=== PATIENT | female | born 1935 | race Hispanic/Latino ===

== ENCOUNTER 2017-06-17 14:16 | Emergency (ER) | payer MEDICARE ==
[2017-06-17 15:11] LABS: Basophils % (Auto) 0.2 % (0.0-1.8); Eosinophils % (Auto) 0.7 % (0.0-4.3); Hematocrit 32.1 % (30.3-42.9); Hemoglobin 10.8 gm/dl (10.1-14.3); Mean Corpuscular HGB Conc 34 % (30-34); Mean Corpuscular Hemoglobin 36 pg (28-32); Mean Corpuscular Volume 107 fl (79-97); Platelet Count 121 K/mm3 (140-440); Red Blood Count 3.01 M/mm3 (3.65-5.03); Red Cell Distribution Width 14.7 % (13.2-15.2)
[2017-06-17 15:34] LABS: BUN/Creatinine Ratio 17.64; Bilirubin,Direct 0.7 mg/dL (0-0.2); Bilirubin,Total 1.7 mg/dL (0.1-1.2); Calcium 8.5 mg/dL (8.4-10.2)
[2017-06-17 15:35] LABS: Albumin 3.4 g/dL (3.9-5); Albumin/Globulin Ratio 0.9 %; Chloride 95.7 mmol/L (98-107); Potassium 4.7 mmol/L (3.6-5.0); Total Protein 7.3 g/dL (6.3-8.2)
[2017-06-17 16:20] LABS: Bacteria,Urine 2+ /HPF (Negative); Bilirubin,Urine NEG (Negative); Blood,Urine SM (Negative); Ketones,Urine NEG (Negative); Leukocyte Esterase,Urine LG (Negative); Nitrite,Urine POS (Negative)
[2017-06-17] MEDS ORDERED: ROCEPHIN/NS 1 GM/50 ML 1 GM/50 ML BAG IV ONE (17:53)
[2017-06-17] MEDS ORDERED: NACL 0.9% 1000 ML 1,000 ML IV ONE (17:53)
[2017-06-17] MEDS ORDERED: TORADOL IV ONE (17:53)
--- NOTE | 2017-06-17 17:57 | Emergency Department Report ---
ED Female HPI - General Chief complaint: Urogenital-Female Stated complaint: POSS UTI/NECK CHECK /FEVER Time Seen by Provider: 06/17/17 17:36 Source: patient Mode of arrival: Wheelchair Limitations: Physical Limitation - History of Present Illness MD Complaint: dysuria -: Gradual Radiation: suprapubic Severity: mild Severity scale (0 -10): 3 Quality: cramping, sharp Consistency: constant Improves with: none Worsens with: urination Are you Now?: No Associated Symptoms: dysuria. denies: vaginal discharge, vaginal bleeding, nausea/vomiting, fever/chills, headaches, loss of appetite, seizure, shortness of breath, syncope, weakness - Related Data Home Medications Medication Instructions Recorded Confirmed Last Taken Aspirin EC [Aspirin Enteric Coated 81 mg PO QDAY 10/23/14 06/17/17 1 Day Ago TAB] 81 Famotidine [Pepcid] 20 mg PO DAILY 10/23/14 06/17/17 1 Day Ago 20mg Furosemide [Lasix TAB] 40 mg PO QDAY 10/23/14 05/24/15 1 Day Ago unknown Levothyroxine Sodium 112 mcg PO DAILY 05/24/15 06/17/17 1 Day Ago 112mcg [place] 10-325 mg TAB 1 tab PO BID 05/24/15 06/17/17 1 Day Ago Metoprolol [Lopressor TAB] 50 mg PO BID 06/17/17 06/17/17 1 Day Ago Warfarin [Coumadin] 2.5 mg PO QDAY 06/17/17 06/17/17 1 Day Ago 2.5mg Previous Rx's Medication Instructions Recorded Last Taken Type Cephalexin [Keflex] 500 mg PO Q12HR #14 cap 06/17/17 Unknown Rx Allergies Allergy/AdvReac Type Severity Reaction Status Date / Time No Known Allergies Allergy Unverified 06/17/17 14:54 ED Review of Systems ROS: Stated complaint: POSS UTI/NECK CHECK /FEVER Other details as noted in HPI Comment: All other systems reviewed and negative ED Past Medical Hx - Past Medical History Hx Hypertension: Yes Hx Heart Attack/AMI: Yes (5 stents) Hx Congestive Heart Failure: Yes Hx Arthritis: Yes Additional medical history: AFIB. CAD - Surgical History Hx Coronary Stent: Yes (Times 5) Hx Cholecystectomy: Yes Hx Breast Surgery: Yes Additional Surgical History: cataracts. tonsillectomy. knee surgeries. 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 "spinal stenosis surgery" - Social History Smoking Status: Never Smoker Substance Use Type: Prescribed - Medications Home Medications: Home Medications Medication Instructions Recorded Confirmed Last Taken Type Aspirin EC [Aspirin Enteric Coated 81 mg PO QDAY 10/23/14 06/17/17 1 Day Ago History TAB] 81 Famotidine [Pepcid] 20 mg PO DAILY 10/23/14 06/17/17 1 Day Ago History 20mg Furosemide [Lasix TAB] 40 mg PO QDAY 10/23/14 05/24/15 1 Day Ago History unknown Levothyroxine Sodium 112 mcg PO DAILY 05/24/15 06/17/17 1 Day Ago History 112mcg [place] 10-325 mg TAB 1 tab PO BID 05/24/15 06/17/17 1 Day Ago History Cephalexin [Keflex] 500 mg PO Q12HR #14 cap 06/17/17 Unknown Rx Metoprolol [Lopressor TAB] 50 mg PO BID 06/17/17 06/17/17 1 Day Ago History Warfarin [Coumadin] 2.5 mg PO QDAY 06/17/17 06/17/17 1 Day Ago History 2.5mg ED Physical Exam - General Limitations: Physical Limitation General appearance: alert, in no apparent distress - Head Head exam: Present: atraumatic, normocephalic - Eye Eye exam: Present: normal appearance - ENT ENT exam: Present: normal exam, normal orophraynx, mucous membranes moist - Neck Neck exam: Present: normal inspection - Respiratory Respiratory exam: Present: normal lung sounds bilaterally. Absent: respiratory distress - Cardiovascular Cardiovascular Exam: Present: regular rate, normal rhythm. Absent: systolic murmur, diastolic murmur, rubs, gallop - GI/Abdominal GI/Abdominal exam: Present: soft, normal bowel sounds - Extremities Exam Extremities exam: Present: normal inspection - Back Exam Back exam: Present: normal inspection - Neurological Exam Neurological exam: Present: alert, oriented X3 - Psychiatric Psychiatric exam: Present: normal affect, normal mood - Skin Skin exam: Present: warm, dry, intact, normal color. Absent: rash ED Course Vital Signs 06/17/17 06/17/17 14:45 17:03 Temperature 100.1 F H 98.9 F Pulse Rate 63 85 Respiratory 19 16 Rate Blood Pressure 126/65 Blood Pressure 130/64 [Right] O2 Sat by Pulse 95 96 Oximetry ED Medical Decision Making - Lab Data Result diagrams: 06/17/17 14:58 06/17/17 14:58 Critical care attestation.: If time is entered above; I have spent that time in minutes in the direct care of this critically ill patient, excluding procedure time. ED Disposition Clinical Impression: UTI (urinary tract infection) Disposition: DC-01 TO HOME OR SELFCARE Is pt being admited?: No Does the pt Need Aspirin: No Condition: Good Prescriptions: Cephalexin [Keflex] 500 mg PO Q12HR #14 cap Referrals: PRIMARY CARE, [Primary Care Provider] - 3-5 Days Time of Disposition: 19:15
[2017-06-17 19:40] VITALS: BP 141/61
== END 2017-06-17 20:13 | disposition home or self-care (01) ==
LOC: ED 14:16
DX: N39.0 Urinary tract infection, site not specified (principal); I11.0 Hypertensive heart disease with heart failure; I50.9 Heart failure, unspecified; I25.2 Old myocardial infarction; M19.90 Unspecified osteoarthritis, unspecified site; Z95.1 Presence of aortocoronary bypass graft; Z79.01 Long term (current) use of anticoagulants; Z79.82 Long term (current) use of aspirin
CPT/HCPCS: 36415; 80048; 80074; 81001; 82962; 85025; 96365; 96375; 99283; J0696; J1885; J7030

== ENCOUNTER 2019-05-16 13:47 | Inpatient (IN) | payer MEDICARE ==
[2019-05-16 15:26] LABS: Basophils % (Auto) 0.5 % (0.0-1.8); Eosinophils # (Auto) 0.2 K/mm3 (0.0-0.4); Eosinophils % (Auto) 4.3 % (0.0-4.3); Hemoglobin 10.5 gm/dl (10.1-14.3); Lymphocytes # (Auto) 1.4 K/mm3 (1.2-5.4); Mean Corpuscular HGB Conc 34 % (30-34); Mean Corpuscular Volume 112 fl (79-97); Monocytes # (Auto) 0.5 K/mm3 (0.0-0.8); Monocytes % (Auto) 10.9 % (0.0-7.3); Platelet Count 129 K/mm3 (140-440); Red Blood Count 2.78 M/mm3 (3.65-5.03); Red Cell Distribution Width 17.2 % (13.2-15.2)
[2019-05-16 15:41] LABS: Albumin 3.5 g/dL (3.9-5); Calcium 8.6 mg/dL (8.4-10.2)
[2019-05-16] MEDS ORDERED: LOVENOX SUB-Q SCH (18:00)
[2019-05-16] MEDS: LOVENOX SUB-Q SCH (19:50)
--- NOTE | 2019-05-17 01:32 | History and Physical Report ---
History of Present Illness Date of examination: 05/16/19 Date of admission: 05/16/19 14:15 Chief complaint: Increasing shortness of breath and swelling of both the legs for 3-4 days History of present illness: 83-year-old female with history of hypertension, hypothyroidism, CHF, atrial fibrillation on Coumadin and sent from [facility] for increasing shortness of breath and increased bilateral leg swelling. Is been going on for the last 1 week. Patient has orthopnea. No increased swelling of both the legs. No chest pain. Patient is class IV NYHA symptoms. Past History Past Medical History: CAD, diabetes, hypertension, hyperlipidemia, hypothyroidism Past Surgical History: PTCA (stent placement in the past) Social history: no significant social history, lives with family, full code Family history: hypertension Medications and Allergies Allergies Allergy/AdvReac Type Severity Reaction Status Date / Time No Known Allergies Allergy Unverified 06/17/17 14:54 Home Medications Medication Instructions Recorded Confirmed Last Taken Type Cyanocobalamin [Vitamin B-12] 1,000 mcg PO DAILY 04/19/18 04/19/18 Unknown History Aspirin EC 81 mg PO QDAY #30 tablet 04/22/18 Unknown Rx Cholecalciferol (Vitamin D3) 2,000 unit PO DAILY #60 capsule 04/22/18 Unknown Rx [Vitamin D3] Furosemide [Lasix TAB] 40 mg PO QDAY #30 tablet 04/22/18 Unknown Rx Levothyroxine Sodium [Synthroid] 112 mcg PO QDAY #30 tablet 04/22/18 Unknown Rx [place]-3 Fatty Acids/Fish Oil [Fish 1,000 mg PO QDAY capsule 04/22/18 Unknown Rx Oil] [place]-3/Dha/Epa/Fish Oil [Fish Oil 1 each PO DAILY #30 capsule 04/22/18 Unknown Rx 1,000 mg Softgel] Potassium Chloride [K-Dur] 20 meq PO Q12H #60 tablet 04/22/18 Unknown Rx Warfarin [Coumadin] 2.5 mg PO QPM #30 tablet 04/22/18 Unknown Rx metOLazone [Zaroxolyn] 2.5 mg PO BID #60 tablet 04/22/18 Unknown Rx Cholecalciferol Vit D3 [Vitamin D3 2,000 unit PO DAILY #30 tablet 08/26/18 Unknown Rx 1,000 UNIT TAB] Ciprofloxacin HCl [Ciprofloxacin 500 mg PO Q12H #14 tab 08/26/18 Unknown Rx TAB] HYDROcodone/APAP 10-325 [[place] 1 - 2 each PO TID PRN #14 tablet 08/26/18 Unknown Rx 10-325 mg TAB] Metoprolol [Lopressor TAB] 50 mg PO BID #60 tablet 08/26/18 Unknown Rx Saccharomyces Boulardii [Florastor] 250 mg PO DAILY #30 capsule 08/26/18 Unknown Rx Active Meds: Active Medications Enoxaparin Sodium (Lovenox) 40 mg SUB-Q QDAY [facility] Last Admin: 05/16/19 19:50 Dose: 40 mg Documented by: Review of Systems All systems: negative Constitutional: weight gain Ears, nose, mouth and throat: deferred Breasts: deferred Cardiovascular: orthopnea, shortness of breath, dyspnea on exertion, leg edema Respiratory: cough Gastrointestinal: no abdominal pain, no nausea Musculoskeletal: no neck stiffness, no neck pain, no shooting arm pain Integumentary: deferred Neurological: no head injury, no seizures, no syncope Psychiatric: no anxiety, no memory loss, no change in sleep habits Endocrine: no polydipsia, no polyuria, no nocturia Hematologic/Lymphatic: no easy bruising, no easy bleeding Allergic/Immunologic: no urticaria, no allergic rhinitis, no wheezing Exam - Constitutional Vitals: Temp Pulse Resp BP Pulse Ox 97.4 F L 80 14 123/68 98 05/16/19 01:45 05/16/19 01:45 05/16/19 01:45 05/16/19 01:45 05/16/19 01:45 General appearance: Present: mild distress, well-nourished - EENT Eyes: Present: PERRL ENT: hearing intact, clear oral mucosa - Neck Neck: Present: supple, normal ROM - Respiratory Respiratory effort: normal Respiratory: bilateral: rales - Cardiovascular Heart rate: 70 Rhythm: regular Heart Sounds: Present: S1 & S2. Absent: rub, click - Extremities Extremities: no ischemia, pulses symmetrical, No edema Extremity abnormal: edema (3+ pedal edema) Peripheral Pulses: within normal limits - Abdominal General gastrointestinal: Present: soft, non-tender, non-distended, normal bowel sounds Female genitourinary: Present: normal - Integumentary Integumentary: Present: clear, warm, dry - Musculoskeletal Musculoskeletal: gait normal, strength equal bilaterally - Psychiatric Psychiatric: appropriate mood/affect, intact judgment & insight - Neurologic Neurologic: CNII-XII intact, moves all extremities - Allied Health Allied health notes reviewed: nursing, case management Results - Labs CBC & Chem 7: 05/16/19 14:47 05/16/19 14:47 Labs: Laboratory Last Values WBC 4.9 K/mm3 (4.5-11.0) 05/16/19 14:47 RBC 2.78 M/mm3 (3.65-5.03) L 05/16/19 14:47 Hgb 10.5 gm/dl (10.1-14.3) 05/16/19 14:47 Hct 31.0 % (30.3-42.9) 05/16/19 14:47 MCV 112 fl (79-97) H 05/16/19 14:47 MCH 38 pg (28-32) H 05/16/19 14:47 MCHC 34 % (30-34) 05/16/19 14:47 RDW 17.2 % (13.2-15.2) H 05/16/19 14:47 Plt Count 129 K/mm3 (140-440) L 05/16/19 14:47 Lymph % (Auto) 28.0 % (13.4-35.0) 05/16/19 14:47 [place] % (Auto) 10.9 % (0.0-7.3) H 05/16/19 14:47 Eos % (Auto) 4.3 % (0.0-4.3) 05/16/19 14:47 Baso % (Auto) 0.5 % (0.0-1.8) 05/16/19 14:47 Lymph # 1.4 K/mm3 (1.2-5.4) 05/16/19 14:47 [place] # 0.5 K/mm3 (0.0-0.8) 05/16/19 14:47 Eos # 0.2 K/mm3 (0.0-0.4) 05/16/19 14:47 Baso # 0.0 K/mm3 (0.0-0.1) 05/16/19 14:47 Seg Neutrophils % 56.3 % (40.0-70.0) 05/16/19 14:47 Seg Neutrophils # 2.8 K/mm3 (1.8-7.7) 05/16/19 14:47 Sodium 139 mmol/L (137-145) 05/16/19 14:47 Potassium 3.7 mmol/L (3.6-5.0) 05/16/19 14:47 Chloride 100.8 mmol/L (98-107) 05/16/19 14:47 Carbon Dioxide 25 mmol/L (22-30) 05/16/19 14:47 17 mmol/L 05/16/19 14:47 BUN 24 mg/dL (7-17) H 05/16/19 14:47 1.5 mg/dL (0.7-1.2) H 05/16/19 14:47 Estimated GFR 33 ml/min 05/16/19 14:47 16 % 05/16/19 14:47 Glucose 90 mg/dL (65-100) 05/16/19 14:47 Calcium 8.6 mg/dL (8.4-10.2) 05/16/19 14:47 1.00 mg/dL (0.1-1.2) 05/16/19 14:47 AST 26 units/L (5-40) 05/16/19 14:47 ALT 12 units/L (7-56) 05/16/19 14:47 77 units/L (35-129) 05/16/19 14:47 NT-Pro-B Natriuret Pep 2752 pg/mL (0-900) H 05/16/19 14:47 7.9 g/dL (6.3-8.2) 05/16/19 14:47 3.5 g/dL (3.9-5) L 05/16/19 14:47 0.8 % 05/16/19 14:47 - Imaging and Cardiology EKG: report reviewed Chest x-ray: report reviewed Assessment and Plan Advance Directives: Yes (full code) VTE prophylaxis?: Chemical Plan of care discussed with patient/family: Yes - Patient Problems (1) Acute exacerbation of CHF (congestive heart failure) Current Visit: Yes Status: Acute Qualifiers: Heart failure type: combined systolic and diastolic Qualified Code(s): I50.43 - Acute on chronic combined systolic (congestive) and diastolic (congestive) heart failure Plan to address problem: IV Lasix 40 mg every 12 Echocardiogram for ejection fraction and valve function Cardiology consult Daily weights Daily intake output (2) Hypertension Current Visit: Yes Status: Chronic Qualifiers: Hypertension type: essential hypertension Qualified Code(s): I10 - [place] l (primary) hypertension Plan to address problem: Continue antihypertensives (3) Hypothyroidism Current Visit: Yes Status: Chronic Qualifiers: Hypothyroidism type: acquired Qualified Code(s): E03.9 - Hypothyroidism, unspecified Plan to address problem: Continue Synthroid Check TSH (4) Pedal edema Current Visit: Yes Status: Chronic Plan to address problem: Rule out DVT (5) DVT prophylaxis Current Visit: Yes Status: Acute Plan to address problem: Continue Lovenox and GI prophylaxis
[2019-05-17] MEDS ORDERED: SODIUM CHLORIDE FLUSH SYRINGE 10 ML IV PRN (01:38)
[2019-05-17] MEDS ORDERED: TYLENOL PO PRN (01:38)
[2019-05-17] MEDS ORDERED: ZOFRAN IV PRN (01:38)
[2019-05-17] MEDS ORDERED: REGLAN IV PRN ×2 (01:38→01:49)
[2019-05-17] MEDS: LOPRESSOR PO SCH ×3 (02:11→22:12)
[2019-05-17] MEDS: DILAUDID IV PRN ×2 (02:12→22:14)
[2019-05-17] MEDS: LASIX IV SCH ×2 (05:58→17:16)
[2019-05-17] MEDS: SYNTHROID PO SCH (05:59)
[2019-05-17 06:28] LABS: Basophils % (Auto) 0.5 % (0.0-1.8); Eosinophils # (Auto) 0.1 K/mm3 (0.0-0.4); Eosinophils % (Auto) 2.8 % (0.0-4.3); Hemoglobin 9.4 gm/dl (10.1-14.3); Lymphocytes # (Auto) 1.3 K/mm3 (1.2-5.4); Lymphocytes % (Auto) 36.7 % (13.4-35.0); Mean Corpuscular HGB Conc 34 % (30-34); Mean Corpuscular Volume 111 fl (79-97); Monocytes # (Auto) 0.4 K/mm3 (0.0-0.8); Monocytes % (Auto) 10.7 % (0.0-7.3); Platelet Count 117 K/mm3 (140-440); Red Blood Count 2.53 M/mm3 (3.65-5.03); Red Cell Distribution Width 16.9 % (13.2-15.2)
[2019-05-17 06:56] LABS: Albumin 3.1 g/dL (3.9-5); Calcium 8.5 mg/dL (8.4-10.2)
[2019-05-17 09:38] LABS: INR 1.81 (0.87-1.13)
[2019-05-17] MEDS ORDERED: ZAROXOLYN PO SCH (10:00)
[2019-05-17] MEDS ORDERED: NON-FORMULARY (Cholecalciferol (Vitamin D3) [Vitamin D3] 2,000 UNIT) PO SCH (10:00)
[2019-05-17] MEDS ORDERED: PEPCID PO SCH (10:00)
--- NOTE | 2019-05-17 10:51 | XRay Report ---
CHEST 2 VIEWS INDICATION: chf. COMPARISON: None. FINDINGS: Support devices: None. Heart: Moderate cardiomegaly. Lungs/Pleura: No acute air space or interstitial disease. No significant pleural effusion. Moderate underlying COPD. IMPRESSION: No acute findings. Signer Name: Ethan Goodson MD Signed: 05/17/2019 10:46 AM Workstation Name: [id number]
[2019-05-17] MEDS: VITAMIN D3 PO SCH (11:00)
[2019-05-17] MEDS: LOVENOX SUB-Q SCH (11:42)
[2019-05-17] MEDS: HALFPRIN EC PO SCH (11:42)
[2019-05-17] MEDS: K-DUR PO SCH ×2 (11:43→22:45)
[2019-05-17] MEDS: FISH OIL PO SCH (11:43)
[2019-05-17] MEDS: SODIUM CHLORIDE FLUSH SYRINGE 10 ML IV SCH ×2 (11:44→22:14)
[2019-05-17] MEDS: PEPCID PO SCH ×2 (11:44→22:12)
--- NOTE | 2019-05-17 12:00 | Consultation ---
History of Present Illness Consult date: 05/17/19 Requesting physician: MARLON MYERS Consult reason: congestive heart failure History of present illness: The patient is an 84 year old female who is followed by Dr. Puri in the office with a history of chronic HFrEF, ischemic cardiomyopathy, apical thrombus, CAD s/p VT and PCI, chronic atrial fibrillation, anticoagulated with coumadin, chronic kidney disease, hypertension, hyperlipidemia, hypothyroidism. She presented to our office yesterday with c/o progressively worsening SOB, GREY, PND, orthopnea and BLE swelling for the past 2 weeks and was directly admitted to [facility] for acute on chronic HFrEF. Echo done 07/2018 showed EF 40-45%, LA and RA severely dilated, mod MR, mod to severe TR, RVSP 37mmHg, no intracardiac mass or thrombus. PET MPI done 12/2016 was negative for ischemia. Past History Past Medical History: CAD, diabetes, hypertension, hyperlipidemia, hypothy roidism Past Surgical History: PTCA (stent placement in the past) Social history: no significant social history, lives with family, full code Family history: hypertension Medications and Allergies Allergies Allergy/AdvReac Type Severity Reaction Status Date / Time No Known Allergies Allergy Unverified 06/17/17 14:54 Home Medications Medication Instructions Recorded Confirmed Last Taken Type Cyanocobalamin [Vitamin B-12] 1,000 mcg PO DAILY 04/19/18 04/19/18 Unknown History Aspirin EC 81 mg PO QDAY #30 tablet 04/22/18 Unknown Rx Cholecalciferol (Vitamin D3) 2,000 unit PO DAILY #60 capsule 04/22/18 Unknown Rx [Vitamin D3] Furosemide [Lasix TAB] 40 mg PO QDAY #30 tablet 04/22/18 Unknown Rx Levothyroxine Sodium [Synthroid] 112 mcg PO QDAY #30 tablet 04/22/18 Unknown Rx [place]-3 Fatty Acids/Fish Oil [Fish 1,000 mg PO QDAY capsule 04/22/18 Unknown Rx Oil] [place]-3/Dha/Epa/Fish Oil [Fish Oil 1 each PO DAILY #30 capsule 04/22/18 Unknown Rx 1,000 mg Softgel] Potassium Chloride [K-Dur] 20 meq PO Q12H #60 tablet 04/22/18 Unknown Rx Warfarin [Coumadin] 2.5 mg PO QPM #30 tablet 04/22/18 Unknown Rx metOLazone [Zaroxolyn] 2.5 mg PO BID #60 tablet 04/22/18 Unknown Rx Cholecalciferol Vit D3 [Vitamin D3 2,000 unit PO DAILY #30 tablet 08/26/18 Unknown Rx 1,000 UNIT TAB] Ciprofloxacin HCl [Ciprofloxacin 500 mg PO Q12H #14 tab 08/26/18 Unknown Rx TAB] HYDROcodone/APAP 10-325 [[place] 1 - 2 each PO TID PRN #14 tablet 08/26/18 Unknown Rx 10-325 mg TAB] Metoprolol [Lopressor TAB] 50 mg PO BID #60 tablet 08/26/18 Unknown Rx Saccharomyces Boulardii [Florastor] 250 mg PO DAILY #30 capsule 08/26/18 Unknown Rx Active Meds: Active Medications Acetaminophen (Tylenol) 650 mg PO Q4H PRN PRN Reason: Pain MILD(1-3)/Fever >100.5/MILLER Aspirin (Halfprin Ec) 81 mg PO QDAY [facility] Last Admin: 05/17/19 11:42 Dose: 81 mg Documented by: Cholecalciferol (Vitamin D3) 2,000 unit PO DAILY [facility] Last Admin: 05/17/19 11:00 Dose: 2,000 unit Documented by: Enoxaparin Sodium (Lovenox) 40 mg SUB-Q QDAY [facility] Last Admin: 05/17/19 11:42 Dose: 40 mg Documented by: Famotidine (Pepcid) 10 mg PO BID [facility] Last Admin: 05/17/19 11:44 Dose: 10 mg Documented by: Fish Oil (Fish Oil) 1,000 mg PO QDAY [facility] Last Admin: 05/17/19 11:43 Dose: 1,000 mg Documented by: Furosemide (Lasix) 40 mg IV 0600,1800 [facility] Last Admin: 05/17/19 05:58 Dose: 40 mg Documented by: Hydromorphone HCl (Dilaudid) 0.5 mg IV Q3H PRN PRN Reason: Pain , Severe (7-10) Last Admin: 05/17/19 02:12 Dose: 0.5 mg Documented by: Levothyroxine Sodium (Synthroid) 112 mcg PO QDAY@0600 [facility] Last Admin: 05/17/19 05:59 Dose: 112 mcg Documented by: Metoclopramide HCl (Reglan) 5 mg IV Q6H PRN PRN Reason: Nausea And Vomiting Metolazone (Zaroxolyn) 2.5 mg PO BID [facility] Last Admin: 05/17/19 11:42 Dose: 2.5 mg Documented by: Metoprolol Tartrate (Lopressor) 50 mg PO BID [facility] Last Admin: 05/17/19 02:11 Dose: 50 mg Documented by: Ondansetron HCl (Zofran) 4 mg IV Q8H PRN PRN Reason: Nausea And Vomiting Oxycodone/Acetaminophen (Percocet 5/325) 1 tab PO Q6H PRN PRN Reason: Pain, Moderate (4-6) Potassium Chloride (K-Dur) 20 meq PO Q12HR [facility] Last Admin: 05/17/19 11:43 Dose: 20 meq Documented by: Sodium Chloride (Sodium Chloride Flush Syringe 10 Ml) 10 ml IV BID [facility] Last Admin: 05/17/19 11:44 Dose: 10 ml Documented by: Sodium Chloride (Sodium Chloride Flush Syringe 10 Ml) 10 ml IV PRN PRN PRN Reason: LINE FLUSH Warfarin Sodium (Coumadin) 2.5 mg PO QPM@1700 [facility]; Protocol Review of Systems Constitutional: no fever, no chills, no sweats Ears, nose, mouth and throat: no ear pain, no nose pain, no sinus pressure, no sinus pain Cardiovascular: orthopnea, edema, shortness of breath, dyspnea on exertion, paroxysmal nocturnal dyspnea, leg edema, no chest pain, no palpitations, no rapid/irregular heart beat, no syncope, no lightheadedness Respiratory: cough, shortness of breath, dyspnea on exertion, no cough with sputum, no congestion, no wheezing, no pain on inspiration Gastrointestinal: no abdominal pain, no nausea, no vomiting, no diarrhea, no constipation, no change in bowel habits Genitourinary Female: no pelvic pain, no flank pain, no menorrhagia, no dysuria, no urinary frequency, no urgency Musculoskeletal: no neck stiffness, no neck pain, no shooting arm pain, no arm numbness/tingling, no low back pain, no shooting leg pain Integumentary: no rash, no pruritis, no redness, no sores, no wounds Neurological: no head injury, no paralysis, no weakness, no parathesias, no numbness, no tingling, no seizures, no syncope Psychiatric: no anxiety Endocrine: no cold intolerance, no heat intolerance Hematologic/Lymphatic: no easy bruising, no easy bleeding Allergic/Immunologic: no urticaria, no wheezing Physical Examination Vital Signs Temp Pulse Resp BP Pulse Ox 97.4 F L 80 14 123/68 98 05/16/19 01:45 05/16/19 01:45 05/16/19 01:45 05/16/19 01:45 05/16/19 01:45 General appearance: no acute distress HEENT: Positive: PERRL, Normocephaly, Mucus Membranes Moist Neck: Positive: neck supple, trachea midline Cardiac: Positive: irregularly irregular, S1/S2, Systolic Murmur Lungs: Positive: Decreased Breath Sounds Neuro: Positive: Grossly Intact Abdomen: Negative: Tender Skin: Positive: Bruising (BLE) Extremities: Present: +2 Edema (BLE) Results 05/17/19 05:51 05/17/19 05:51 Cardiac Enzymes 05/16/19 05/17/19 Range/Units 14:47 05:51 AST 26 22 (5-40) units/L Coagulation 05/17/19 Range/Units 08:17 PT 20.6 H (12.2-14.9) Sec. INR 1.81 H (0.87-1.13) CBC 05/16/19 05/17/19 Range/Units 14:47 05:51 WBC 4.9 3.4 L (4.5-11.0) K/mm3 RBC 2.78 L 2.53 L (3.65-5.03) M/mm3 Hgb 10.5 9.4 L (10.1-14.3) gm/dl Hct 31.0 28.0 L (30.3-42.9) % Plt Count 129 L 117 L (140-440) K/mm3 Lymph # 1.4 1.3 (1.2-5.4) K/mm3 [place] # 0.5 0.4 (0.0-0.8) K/mm3 Eos # 0.2 0.1 (0.0-0.4) K/mm3 Baso # 0.0 0.0 (0.0-0.1) K/mm3 Comprehensive Metabolic Panel 05/16/19 05/17/19 Range/Units 14:47 05:51 Sodium 139 140 (137-145) mmol/L Potassium 3.7 3.7 (3.6-5.0) mmol/L Chloride 100.8 103.8 (98-107) mmol/L Carbon Dioxide 25 24 (22-30) mmol/L BUN 24 H 19 H (7-17) mg/dL Creatinine 1.5 H 1.3 H (0.7-1.2) mg/dL Glucose 90 83 (65-100) mg/dL Calcium 8.6 8.5 (8.4-10.2) mg/dL AST 26 22 (5-40) units/L ALT 12 11 (7-56) units/L Alkaline Phosphatase 77 66 (35-129) units/L Total Protein 7.9 6.8 (6.3-8.2) g/dL Albumin 3.5 L 3.1 L (3.9-5) g/dL - Imaging and Cardiology Echo: report reviewed (07/2018 showed EF 40-45%, LA and RA severely dilated, mod MR, mod to severe TR, RVSP 37mmHg, no intracardiac mass or thrombus. ) EKG: report reviewed, image reviewed EKG interpretations - Telemetry EKG Rhythm: Atrial Fibrillation - EKG Supraventricular dysrhythmia: atrial fibrillation Assessment and Plan Agree with present cardiac management. Monitor renal indices. The patient has been seen in conjunction with Dr. Acosta who agrees with the assessment and plan of care. - Patient Problems (1) Acute on chronic systolic heart failure Current Visit: No Status: Acute (2) Ischemic cardiomyopathy Current Visit: Yes Status: Chronic (3) CAD (coronary artery disease) Current Visit: Yes Status: Chronic Qualifiers: Coronary Disease-Associated Artery/Lesion type: [place] coronary artery [place] vs. transplanted heart: [place] heart Associated angina: with unstable angina pectoris (4) Stented coronary artery Current Visit: Yes Status: Chronic (5) Permanent atrial fibrillation Current Visit: Yes Status: Chronic (6) CKD (chronic kidney disease) Current Visit: Yes Status: Chronic (7) Hypertension Current Visit: Yes Status: Chronic Qualifiers: Hypertension type: essential hypertension Qualified Code(s): I10 - Essential (primary) hypertension (8) Hypothyroidism Current Visit: Yes Status: Chronic Qualifiers: Hypothyroidism type: acquired Qualified Code(s): E03.9 - Hypothyroidism, unspecified
[2019-05-17] MEDS: COUMADIN PO SCH (17:15)
[2019-05-17] MEDS: PERCOCET 5/325 PO PRN (18:33)
--- NOTE | 2019-05-17 19:14 | Progress Note ---
Assessment and Plan - Patient Problems (1) Acute exacerbation of CHF (congestive heart failure) Current Visit: Yes Status: Acute Qualifiers: Heart failure type: combined systolic and diastolic Qualified Code(s): I50.43 - Acute on chronic combined systolic (congestive) and diastolic (congestive) heart failure Plan to address problem: Patient with acute on chronic systolic heart failure. Ejection fraction 45%. Seen we don't fairly well. We'll place patient on diuretics and beta nayeli. We'll hold TANJA inhibitor secondary to chronic kidney disease. Avoid nephrotoxic agents low-salt diet. Diuresis accordingly. Patient has improved after 1 day of diuresis. (2) CAD (coronary artery disease) Current Visit: Yes Status: Chronic Qualifiers: Coronary Disease-Associated Artery/Lesion type: [place] coronary artery [place] vs. transplanted heart: [place] heart Associated angina: with unstable angina pectoris Plan to address problem: At present patient remains chest pain-free. Has had PCI continue aspirin and beta nayeli metoprolol. We'll discuss with cardiology is Plavix still indicated. (3) Hypertension Current Visit: Yes Status: Chronic Qualifiers: Hypertension type: essential hypertension Qualified Code(s): I10 - Essential (primary) hypertension Plan to address problem: Patient fairly well controlled with metoprolol (4) Hypothyroidism Current Visit: Yes Status: Chronic Qualifiers: Hypothyroidism type: acquired Qualified Code(s): E03.9 - Hypothyroidism, unspecified Plan to address problem: Currently asymptomatic we'll obtain TSH continue levothyroxine. (5) Chronic kidney disease, stage III (moderate) Current Visit: No Status: Acute Plan to address problem: Present back to approximate baseline creatinine 1.3. A short chronic kidney disease. (6) Hypothyroidism (acquired) Current Visit: No Status: Chronic History Interval history: Patient 84-year-old female with a history of chronic congestive heart failure, coronary artery disease status post PCI, chronic kidney disease, hypertension. Presents with acute episode of shortness of breath dyspnea on exertion PND or lo wer extremity edema. Clinical course appeared to be CHF exacerbation. Patient admitted for CHF exacerbation and hypoxemia. At present patient states she feels much better. Still has a nonproductive cough at times. Hospitalist Physical - Constitutional Vitals: Temp Pulse Resp BP Pulse Ox 97.6 F 46 L 19 118/54 96 05/17/19 12:21 05/17/19 12:44 05/17/19 14:00 05/17/19 12:44 05/17/19 12:21 General appearance: Present: no acute distress - EENT Eyes: Present: PERRL, EOM intact ENT: hearing intact, clear oral mucosa, dentition normal - Neck Neck: Present: supple, normal ROM - Respiratory Respiratory: bilateral: diminished, rhonchi - Cardiovascular Rhythm: regular Heart Sounds: Present: S1 & S2. Absent: systolic murmur - Extremities Extremities: no ischemia, pulses intact, pulses symmetrical, No edema, normal temperature, normal color, Full ROM Peripheral Pulses: within normal limits - Abdominal General gastrointestinal: soft, non-tender, non-distended, normal bowel sounds, hypoactive bowel sounds, no hepatomegaly, no splenomegaly, no mass, no hernia - Integumentary Integumentary: Present: clear, warm, dry. Absent: jaundice, rash, clammy - Psychiatric Psychiatric: no appropriate mood/affect, intact judgment & insight, memory intact - Neurologic Neurologic: CNII-XII intact, no focal deficits, moves all extremities Results - Labs CBC & Chem 7: 05/17/19 05:51 05/17/19 05:51 Labs: Laboratory Last Values WBC 3.4 K/mm3 (4.5-11.0) L 05/17/19 05:51 RBC 2.53 M/mm3 (3.65-5.03) L 05/17/19 05:51 Hgb 9.4 gm/dl (10.1-14.3) L 05/17/19 05:51 Hct 28.0 % (30.3-42.9) L 05/17/19 05:51 MCV 111 fl (79-97) H 05/17/19 05:51 MCH 37 pg (28-32) H 05/17/19 05:51 MCHC 34 % (30-34) 05/17/19 05:51 RDW 16.9 % (13.2-15.2) H 05/17/19 05:51 Plt Count 117 K/mm3 (140-440) L 05/17/19 05:51 Lymph % (Auto) 36.7 % (13.4-35.0) H 05/17/19 05:51 [place] % (Auto) 10.7 % (0.0-7.3) H 05/17/19 05:51 Eos % (Auto) 2.8 % (0.0-4.3) 05/17/19 05:51 Baso % (Auto) 0.5 % (0.0-1.8) 05/17/19 05:51 Lymph # 1.3 K/mm3 (1.2-5.4) 05/17/19 05:51 [place] # 0.4 K/mm3 (0.0-0.8) 05/17/19 05:51 Eos # 0.1 K/mm3 (0.0-0.4) 05/17/19 05:51 Baso # 0.0 K/mm3 (0.0-0.1) 05/17/19 05:51 Seg Neutrophils % 49.3 % (40.0-70.0) 05/17/19 05:51 Seg Neutrophils # 1.7 K/mm3 (1.8-7.7) L 05/17/19 05:51 PT 20.6 Sec. (12.2-14.9) H 05/17/19 08:17 INR 1.81 (0.87-1.13) H 05/17/19 08:17 Sodium 140 mmol/L (137-145) 05/17/19 05:51 Potassium 3.7 mmol/L (3.6-5.0) 05/17/19 05:51 Chloride 103.8 mmol/L (98-107) 05/17/19 05:51 Carbon Dioxide 24 mmol/L (22-30) 05/17/19 05:51 16 mmol/L 05/17/19 05:51 BUN 19 mg/dL (7-17) H 05/17/19 05:51 1.3 mg/dL (0.7-1.2) H 05/17/19 05:51 Estimated GFR 39 ml/min 05/17/19 05:51 15 % 05/17/19 05:51 Glucose 83 mg/dL (65-100) 05/17/19 05:51 5.6 % (4-6) 05/17/19 05:51 Calcium 8.5 mg/dL (8.4-10.2) 05/17/19 05:51 1.40 mg/dL (0.1-1.2) H 05/17/19 05:51 AST 22 units/L (5-40) 05/17/19 05:51 ALT 11 units/L (7-56) 05/17/19 05:51 66 units/L (35-129) 05/17/19 05:51 NT-Pro-B Natriuret Pep 2752 pg/mL (0-900) H 05/16/19 14:47 6.8 g/dL (6.3-8.2) 05/17/19 05:51 3.1 g/dL (3.9-5) L 05/17/19 05:51 0.8 % 05/17/19 05:51 Active Medications - Current Medications Current Medications: Generic Name Dose Route Start Last Admin Trade Name Freq PRN Reason Stop Dose Admin Acetaminophen 650 mg 05/17/19 01:38 Tylenol PO Q4H PRN Pain MILD(1-3)/Fever >100.5/MILLER Aspirin 81 mg 05/17/19 10:00 05/17/19 11:42 Halfprin Ec PO 81 mg QDAY ALEKS Administration Cholecalciferol 2,000 unit 05/17/19 10:00 05/17/19 11:00 Vitamin D3 PO 2,000 unit DAILY ALEKS Administration Enoxaparin Sodium 40 mg 05/16/19 19:00 05/17/19 11:42 Lovenox SUB-Q 40 mg QDAY ALEKS Administration Famotidine 10 mg 05/17/19 10:00 05/17/19 11:44 Pepcid PO 10 mg BID ALEKS Administration Fish Oil 1,000 mg 05/17/19 10:00 05/17/19 11:43 Fish Oil PO 1,000 mg QDAY ALEKS Administration Furosemide 40 mg 05/17/19 06:00 05/17/19 17:16 Lasix IV 40 mg 0600,1800 ALEKS Administration Hydromorphone HCl 0.5 mg 05/17/19 01:38 05/17/19 02:12 Dilaudid IV 0.5 mg Q3H PRN Administration Pain , Severe (7-10) Levothyroxine Sodium 112 mcg 05/17/19 06:00 05/17/19 05:59 Synthroid PO 112 mcg QDAY@0600 ALEKS Administration Metoclopramide HCl 5 mg 05/17/19 01:49 Reglan IV Q6H PRN Nausea And Vomiting Metolazone 2.5 mg 05/18/19 06:00 Zaroxolyn PO DAILY [facility] Metoprolol Tartrate 50 mg 05/17/19 02:00 05/17/19 12:44 Lopressor PO Not Given BID [facility] Ondansetron HCl 4 mg 05/17/19 01:38 Zofran IV Q8H PRN Nausea And Vomiting Oxycodone/Acetaminophen 1 tab 05/17/19 01:38 05/17/19 18:33 Percocet 5/325 PO 1 tab Q6H PRN Administration Pain, Moderate (4-6) Potassium Chloride 20 meq 05/17/19 10:00 05/17/19 11:43 K-Dur PO 20 meq Q12HR ALEKS Administration Sodium Chloride 10 ml 05/17/19 10:00 05/17/19 11:44 Sodium Chloride Flush Syringe 10 Ml IV 10 ml BID ALEKS Administration Sodium Chloride 10 ml 05/17/19 01:38 Sodium Chloride Flush Syringe 10 Ml IV PRN PRN LINE FLUSH Warfarin Sodium 2.5 mg 05/17/19 17:00 05/17/19 17:15 Coumadin PO 2.5 mg QPM@1700 [facility] Administration Protocol Nutrition/Malnutrition Assess - Dietary Evaluation Nutrition/Malnutrition Findings: Nutrition Notes Start: 05/17/19 14:54 Freq: Status: Active Protocol: Document 05/17/19 14:54 RM (Rec: 05/17/19 15:02 RM [id number]) Nutrition Notes Need for Assessment generated from: Education Initial or Follow up Assessment Current Diagnosis Hypertension,Heart Failure, Hyperlipidemia Other Pertinent Diagnosis RI Current Diet Cardiac Labs/Tests Reviewed Pertinent Medications Lasix Height 5 ft 5 in Weight 87.2 kg [place] Body Weight (kg) 56.81 BMI 32.0 Subjective/Other Information Screened for Coumadin/Vit K diet education. Pt stated that she is already familiar w/the diet. Stated that her appetite is poor. Noted lunch at bedside w/25% eaten. Percent of energy/protein needs met: 38%/29% Burn Absent Trauma Absent #1 Nutrition Diagnosis Inadequate oral intake Etiology decreased appetite As Evidenced by Signs and Symptoms lunch at bedside w/25% eaten Is patient on ventilator? No Is Patient Ambulatory and/or Out of Bed Yes REE-([place]-St. Jeor-ambulatory/OOB) [ 1713.244 NUTR.MSJOOB] Kcal/Kg value to use for calculation 16 Approximate Energy Requirements Using 1395 kcal/Kg Calculation Used for Recommendations Kcal/kg Additional Notes Protein Needs: 72-86g (1-1.2g/ kg 72kg adjBW) Fluid Needs: 1 ml/kcal Nutrition Intervention Change Diet Order: Continue current Add Supplement/Snack (indicate name/kcal Ensure Enlive Chocolate 1 /protein ) daily Provides kCal: 350 Provides Protein (gm) 20 Goal #1 Meet at least 75% of calorie and protein needs via PO and ONS intakes Anticipated Discharge Needs: Cardiac diet Follow-Up By: 05/19/19 Additional Comments Follow for PO and ONS intakes
[2019-05-18] MEDS: ZAROXOLYN PO SCH ×2 (05:22→10:03)
[2019-05-18] MEDS: SYNTHROID PO SCH (05:23)
[2019-05-18] MEDS: LASIX IV SCH (06:09)
[2019-05-18 06:10] LABS: INR 1.9 (0.87-1.13)
[2019-05-18 06:22] LABS: Calcium 8.8 mg/dL (8.4-10.2)
[2019-05-18] MEDS: FISH OIL PO SCH (10:03)
[2019-05-18] MEDS: K-DUR PO SCH ×2 (10:03→21:28)
[2019-05-18] MEDS: VITAMIN D3 PO SCH (10:03)
[2019-05-18] MEDS: HALFPRIN EC PO SCH (10:03)
[2019-05-18] MEDS: LOVENOX SUB-Q SCH (10:03)
[2019-05-18] MEDS: PEPCID PO SCH ×2 (10:03→21:28)
[2019-05-18] MEDS: SODIUM CHLORIDE FLUSH SYRINGE 10 ML IV SCH ×2 (10:04→21:28)
[2019-05-18] MEDS: LOPRESSOR PO SCH ×2 (10:09→21:28)
--- NOTE | 2019-05-18 11:34 | Progress Note ---
Assessment and Plan Pt clinically improving. Hold zaroxolyn in setting of slight increase in serum Cr overnight, cont IV lasix and other present management. F/u BMP in AM. The patient has been seen in conjunction with Dr. Acosta who agrees with the assessment and plan of care. - Patient Problems (1) Acute on chronic systolic heart failure Current Visit: No Status: Acute (2) Ischemic cardiomyopathy Current Visit: Yes Status: Chronic (3) CAD (coronary artery disease) Current Visit: Yes Status: Chronic Qualifiers: Coronary Disease-Associated Artery/Lesion type: [place] coronary artery [place] vs. transplanted heart: [place] heart Associated angina: with unstable angina pectoris (4) Stented coronary artery Current Visit: Yes Status: Chronic (5) Permanent atrial fibrillation Current Visit: Yes Status: Chronic (6) CKD (chronic kidney disease) Current Visit: Yes Status: Chronic (7) Hypertension Current Visit: Yes Status: Chronic Qualifiers: Hypertension type: essential hypertension Qualified Code(s): I10 - Essential (primary) hypertension (8) Hypothyroidism Current Visit: Yes Status: Chronic Qualifiers: Hypothyroidism type: acquired Qualified Code(s): E03.9 - Hypothyroidism, unspecified (9) Anemia Current Visit: Yes Status: Acute (10) Thrombocytopenia Current Visit: Yes Status: Acute Subjective Date of service: 05/18/19 Principal diagnosis: HF Interval history: pt laying flat comfortably, states she is feeling better today, BLE swelling improving. in AFib with CVR on tele. Objective Last Vital Signs Temp 98.1 F 05/18/19 08:54 Pulse 77 05/18/19 10:09 Resp 16 05/18/19 10:22 BP 107/77 05/18/19 10:09 Pulse Ox 95 05/18/19 08:54 - Physical Examination General: No Apparent Distress HEENT: Positive: PERRL, Normocephaly, Mucus Membranes Moist Neck: Positive: neck supple, trachea midline Cardiac: Positive: irregularly irregular, S1/S2 Lungs: Positive: Decreased Breath Sounds Neuro: Positive: Grossly Intact Abdomen: Negative: Tender Skin: Positive: Bruising (BLE) Extremities: Present: +2 Edema (BLE) - Labs and Meds Coagulation 05/18/19 Range/Units 05:36 PT 21.4 H (12.2-14.9) Sec. INR 1.90 H (0.87-1.13) Comprehensive Metabolic Panel 05/18/19 Range/Units 05:36 Sodium 140 (137-145) mmol/L Potassium 3.7 (3.6-5.0) mmol/L Chloride 98.1 (98-107) mmol/L Carbon Dioxide 30 (22-30) mmol/L BUN 21 H (7-17) mg/dL Creatinine 1.6 H (0.7-1.2) mg/dL Glucose 91 (65-100) mg/dL Calcium 8.8 (8.4-10.2) mg/dL - Imaging and Cardiology EKG: report reviewed, image reviewed Echo: report reviewed (07/2018 showed EF 40-45%, LA and RA severely dilated, mod MR, mod to severe TR, RVSP 37mmHg, no intracardiac mass or thrombus. ) - Telemetry EKG Rhythm: Atrial Fibrillation
[2019-05-18] MEDS: PERCOCET 5/325 PO PRN (13:30)
[2019-05-18] MEDS: BUMEX IV SCH (17:45)
[2019-05-18] MEDS: COUMADIN PO SCH (17:46)
--- NOTE | 2019-05-18 18:42 | Progress Note ---
Assessment and Plan - Patient Problems (1) Acute exacerbation of CHF (congestive heart failure) Current Visit: Yes Status: Acute Qualifiers: Heart failure type: combined systolic and diastolic Qualified Code(s): I50.43 - Acute on chronic combined systolic (congestive) and diastolic (congestive) heart failure Plan to address problem: Patient with acute on chronic systolic heart failure. Ejection fraction 45%. Patient has been slow to respond again with Lasix. Agree change to Bumex.. We 'll hold TANJA inhibitor secondary to chronic kidney disease. Avoid nephrotoxic agents low-salt diet. Diuresis accordingly. Patient has improved after 1 day of diuresis. (2) CAD (coronary artery disease) Current Visit: Yes Status: Chronic Qualifiers: Coronary Disease-Associated Artery/Lesion type: [place] coronary artery [place] vs. transplanted heart: [place] heart Associated angina: with unstable angina pectoris Plan to address problem: At present patient remains chest pain-free. Has had PCI continue aspirin and b eta nayeli metoprolol. We'll discuss with cardiology is Plavix still indicated. (3) Hypertension Current Visit: Yes Status: Chronic Qualifiers: Hypertension type: essential hypertension Qualified Code(s): I10 - Essential (primary) hypertension Plan to address problem: Continues to have optimal control of blood pressure. Continue current ant ihypertensives. (4) Hypothyroidism Current Visit: Yes Status: Chronic Qualifiers: Hypothyroidism type: acquired Qualified Code(s): E03.9 - Hypothyroidism, unspecified Plan to address problem: Currently asymptomatic we'll obtain TSH continue levothyroxine. (5) Chronic kidney disease, stage III (moderate) Current Visit: No Status: Acute Plan to address problem: Present back to approximate baseline creatinine 1.3. A short chronic kidney disease.. Patient has had an increase in creatinine to 1.6. Was likely secondary to volume shifts. (6) Hypothyroidism (acquired) Current Visit: No Status: Chronic History Interval history: Patient laying in bed. Comfortable. Patient more comfortably yesterday. Still has upper and lower extremity edema. And significant rhonchi or exam. Slow to respond. May be secondary to age. Hospitalist Physical - Constitutional Vitals: Temp Pulse Resp BP Pulse Ox 98.6 F 82 18 102/50 95 05/18/19 13:12 05/18/19 17:43 05/18/19 17:43 05/18/19 17:43 05/18/19 17:43 General appearance: Present: no acute distress - EENT Eyes: Present: PERRL, EOM intact ENT: hearing intact, clear oral mucosa, dentition normal - Respiratory Respiratory: bilateral: diminished, rhonchi - Cardiovascular Rhythm: regular - Extremities Extremities: no ischemia, pulses intact, pulses symmetrical, normal temperature, normal color Extremity abnormal: edema Peripheral Pulses: within normal limits - Abdominal General gastrointestinal: soft, non-tender, non-distended, normal bowel sounds (obese), other - Psychiatric Psychiatric: intact judgment & insight, memory intact - Neurologic Neurologic: CNII-XII intact, no focal deficits, moves all extremities Results - Labs CBC & Chem 7: 05/17/19 05:51 05/18/19 05:36 Labs: Laboratory Last Values WBC 3.4 K/mm3 (4.5-11.0) L 05/17/19 05:51 RBC 2.53 M/mm3 (3.65-5.03) L 05/17/19 05:51 Hgb 9.4 gm/dl (10.1-14.3) L 05/17/19 05:51 Hct 28.0 % (30.3-42.9) L 05/17/19 05:51 MCV 111 fl (79-97) H 05/17/19 05:51 MCH 37 pg (28-32) H 05/17/19 05:51 MCHC 34 % (30-34) 05/17/19 05:51 RDW 16.9 % (13.2-15.2) H 05/17/19 05:51 Plt Count 117 K/mm3 (140-440) L 05/17/19 05:51 Lymph % (Auto) 36.7 % (13.4-35.0) H 05/17/19 05:51 [place] % (Auto) 10.7 % (0.0-7.3) H 05/17/19 05:51 Eos % (Auto) 2.8 % (0.0-4.3) 05/17/19 05:51 Baso % (Auto) 0.5 % (0.0-1.8) 05/17/19 05:51 Lymph # 1.3 K/mm3 (1.2-5.4) 05/17/19 05:51 [place] # 0.4 K/mm3 (0.0-0.8) 05/17/19 05:51 Eos # 0.1 K/mm3 (0.0-0.4) 05/17/19 05:51 Baso # 0.0 K/mm3 (0.0-0.1) 05/17/19 05:51 Seg Neutrophils % 49.3 % (40.0-70.0) 05/17/19 05:51 Seg Neutrophils # 1.7 K/mm3 (1.8-7.7) L 05/17/19 05:51 PT 21.4 Sec. (12.2-14.9) H 05/18/19 05:36 INR 1.90 (0.87-1.13) H 05/18/19 05:36 Sodium 140 mmol/L (137-145) 05/18/19 05:36 Potassium 3.7 mmol/L (3.6-5.0) 05/18/19 05:36 Chloride 98.1 mmol/L (98-107) 05/18/19 05:36 Carbon Dioxide 30 mmol/L (22-30) 05/18/19 05:36 16 mmol/L 05/18/19 05:36 BUN 21 mg/dL (7-17) H 05/18/19 05:36 1.6 mg/dL (0.7-1.2) H 05/18/19 05:36 Estimated GFR 31 ml/min 05/18/19 05:36 13 % 05/18/19 05:36 Glucose 91 mg/dL (65-100) 05/18/19 05:36 5.6 % (4-6) 05/17/19 05:51 Calcium 8.8 mg/dL (8.4-10.2) 05/18/19 05:36 1.40 mg/dL (0.1-1.2) H 05/17/19 05:51 AST 22 units/L (5-40) 05/17/19 05:51 ALT 11 units/L (7-56) 05/17/19 05:51 66 units/L (35-129) 05/17/19 05:51 NT-Pro-B Natriuret Pep 2752 pg/mL (0-900) H 05/16/19 14:47 6.8 g/dL (6.3-8.2) 05/17/19 05:51 3.1 g/dL (3.9-5) L 05/17/19 05:51 0.8 % 05/17/19 05:51 Active Medications - Current Medications Current Medications: Generic Name Dose Route Start Last Admin Trade Name Freq PRN Reason Stop Dose Admin Acetaminophen 650 mg 05/17/19 01:38 Tylenol PO Q4H PRN Pain MILD(1-3)/Fever >100.5/MILLER Aspirin 81 mg 05/17/19 10:00 05/18/19 10:03 Halfprin Ec PO 81 mg QDAY [facility] Administration Bumetanide 1 mg 05/18/19 18:00 05/18/19 17:45 Bumex IV Not Given BID@0600,1800 [facility] Cholecalciferol 2,000 unit 05/17/19 10:00 05/18/19 10:03 Vitamin D3 PO 2,000 unit DAILY [facility] Administration Enoxaparin Sodium 30 mg 05/19/19 10:00 Lovenox SUB-Q QDAY [facility] Famotidine 10 mg 05/17/19 10:00 05/18/19 10:03 Pepcid PO 10 mg BID [facility] Administration Fish Oil 1,000 mg 05/17/19 10:00 05/18/19 10:03 Fish Oil PO 1,000 mg QDAY [facility] Administration Hydromorphone HCl 0.5 mg 05/17/19 01:38 05/17/19 22:14 Dilaudid IV 0.5 mg Q3H PRN Administration Pain , Severe (7-10) Levothyroxine Sodium 112 mcg 05/17/19 06:00 05/18/19 05:23 Synthroid PO 112 mcg QDAY@0600 [facility] Administration Metoclopramide HCl 5 mg 05/17/19 01:49 Reglan IV Q6H PRN Nausea And Vomiting Metoprolol Tartrate 50 mg 05/17/19 02:00 05/18/19 10:09 Lopressor PO Not Given BID [facility] Ondansetron HCl 4 mg 05/17/19 01:38 Zofran IV Q8H PRN Nausea And Vomiting Oxycodone/Acetaminophen 1 tab 05/17/19 01:38 05/18/19 13:30 Percocet 5/325 PO 1 tab Q6H PRN Administration Pain, Moderate (4-6) Potassium Chloride 20 meq 05/17/19 10:00 05/18/19 10:03 K-Dur PO 20 meq Q12HR ALEKS Administration Sodium Chloride 10 ml 05/17/19 10:00 05/18/19 10:04 Sodium Chloride Flush Syringe 10 Ml IV 10 ml BID ALEKS Administration Sodium Chloride 10 ml 05/17/19 01:38 05/17/19 22:13 Sodium Chloride Flush Syringe 10 Ml IV 10 ml PRN PRN Administration LINE FLUSH Warfarin Sodium 2.5 mg 05/17/19 17:00 05/18/19 17:46 Coumadin PO 2.5 mg QPM@1700 ALEKS Administration Protocol Nutrition/Malnutrition Assess - Dietary Evaluation Nutrition/Malnutrition Findings: Nutrition Notes Start: 05/17/19 14:54 Freq: Status: Active Protocol: Document 05/18/19 18:03 RM (Rec: 05/18/19 18:08 RM [id number]) Nutrition Notes Initial or Follow up Reassessment Current Diagnosis Hypertension,Heart Failure, Hyperlipidemia Other Pertinent Diagnosis RI Current Diet Cardiac Labs/Tests Reviewed Pertinent Medications Reviewed Height 5 ft 5 in Weight 84.2 kg [place] Body Weight (kg) 56.81 BMI 30.9 Weight change and time frame Current wt obtained from [facility] Subjective/Other Information Pt stated that her appetite is poor and that she ate 25% of her lunch. Stated that she did not eat the meat d/t not having a taste for me recently . Noted unopened Ensure Enlive a bedside. Pt stated that it was the first one she received and that she intends to drink it. Also stated that she would be willing to drink it BID. Percent of energy/protein needs met: 39%/29% Burn Absent Trauma Absent #1 Nutrition Diagnosis Inadequate oral intake Diagnosis Progress(for reassessment Continues documentation) Is patient on ventilator? No Is Patient Ambulatory and/or Out of Bed Yes REE-([place]-St. Jeor-ambulatory/OOB) [ 3169.783 NUTR.MSJOOB] Kcal/Kg value to use for calculation 16 Approximate Energy Requirements Using 1347 kcal/Kg Calculation Used for Recommendations Kcal/kg Additional Notes Protein Needs: 72-86g (1-1.2g/ kg 72kg adjBW) Fluid Needs: 1 ml/kcal Nutrition Intervention Change Diet Order: Continue current Add Supplement/Snack (indicate name/kcal Ensure Enlive Chocolate BID /protein ) Provides kCal: 350 Provides Protein (gm) 20 Goal #1 Meet at least 75% of calorie and protein needs via PO and ONS intakes Anticipated Discharge Needs: Cardiac diet Follow-Up By: 05/23/19 Additional Comments Follow for PO and ONS intakes
[2019-05-18] MEDS: DILAUDID IV PRN (21:27)
[2019-05-19 06:22] LABS: INR 1.77 (0.87-1.13)
[2019-05-19] MEDS: SYNTHROID PO SCH (06:25)
[2019-05-19] MEDS: PERCOCET 5/325 PO PRN ×3 (06:25→23:16)
[2019-05-19] MEDS: BUMEX IV SCH (06:30)
[2019-05-19 06:36] LABS: Calcium 8.6 mg/dL (8.4-10.2)
[2019-05-19] MEDS: LOPRESSOR PO SCH ×2 (09:40→21:33)
[2019-05-19] MEDS: PEPCID PO SCH ×2 (09:40→21:33)
[2019-05-19] MEDS: VITAMIN D3 PO SCH (09:40)
[2019-05-19] MEDS: HALFPRIN EC PO SCH (09:40)
[2019-05-19] MEDS: K-DUR PO SCH ×2 (09:40→21:32)
[2019-05-19] MEDS: FISH OIL PO SCH (09:40)
[2019-05-19] MEDS: LOVENOX SUB-Q SCH (09:41)
--- NOTE | 2019-05-19 12:04 | Progress Note ---
Assessment and Plan Pt clinically improving. Cont present management. Likely d/c home in AM. Assessment and plan reviewed with pt at bedside and pt's son via telephone. The patient has been seen in conjunction with Dr. Acosta who agrees with the assessment and plan of care. - Patient Problems (1) Acute on chronic systolic heart failure Current Visit: No Status: Acute (2) Ischemic cardiomyopathy Current Visit: Yes Status: Chronic (3) CAD (coronary artery disease) Current Visit: Yes Status: Chronic Qualifiers: Coronary Disease-Associated Artery/Lesion type: [place] coronary artery [place] vs. transplanted heart: [place] heart Associated angina: with unstable angina pectoris (4) Stented coronary artery Current Visit: Yes Status: Chronic (5) Permanent atrial fibrillation Current Visit: Yes Status: Chronic (6) CKD (chronic kidney disease) Current Visit: Yes Status: Chronic (7) Hypertension Current Visit: Yes Status: Chronic Qualifiers: Hypertension type: essential hypertension Qualified Code(s): I10 - Essential (primary) hypertension (8) Hypothyroidism Current Visit: Yes Status: Chronic Qualifiers: Hypothyroidism type: acquired Qualified Code(s): E03.9 - Hypothyroidism, unspecified (9) Anemia Current Visit: Yes Status: Acute (10) Thrombocytopenia Current Visit: Yes Status: Acute Subjective Date of service: 05/19/19 Principal diagnosis: HF Interval history: pt laying flat comfortably, states she is feeling better today, BLE swelling improving. in AFib with CVR on tele. Objective Last Vital Signs Temp 98.2 F 05/19/19 04:35 Pulse 76 05/19/19 08:00 Resp 18 05/19/19 04:33 BP 125/60 05/19/19 04:33 Pulse Ox 96 05/19/19 10:26 - Physical Examination General: No Apparent Distress HEENT: Positive: PERRL, Normocephaly, Mucus Membranes Moist Neck: Positive: neck supple, trachea midline Cardiac: Positive: irregularly irregular, S1/S2 Lungs: Positive: Decreased Breath Sounds Neuro: Positive: Grossly Intact Abdomen: Negative: Tender Skin: Positive: Bruising (BLE) Extremities: Present: +2 Edema (BLE) - Labs and Meds Coagulation 05/19/19 Range/Units 05:45 PT 20.2 H (12.2-14.9) Sec. INR 1.77 H (0.87-1.13) Comprehensive Metabolic Panel 05/19/19 Range/Units 05:45 Sodium 138 (137-145) mmol/L Potassium 3.9 (3.6-5.0) mmol/L Chloride 99.6 (98-107) mmol/L Carbon Dioxide 26 (22-30) mmol/L BUN 17 (7-17) mg/dL Creatinine 1.4 H (0.7-1.2) mg/dL Glucose 84 (65-100) mg/dL Calcium 8.6 (8.4-10.2) mg/dL - Imaging and Cardiology EKG: report reviewed, image reviewed Echo: report reviewed (07/2018 showed EF 40-45%, LA and RA severely dilated, mod MR, mod to severe TR, RVSP 37mmHg, no intracardiac mass or thrombus. )
--- NOTE | 2019-05-19 13:30 | Progress Note ---
Assessment and Plan Assessment and plan: Acute on chronic systolic heart failure. Continue current management per cardiology. Ischemic cardiomyopathy. As above. CAD/previous history of systemic coronary artery. Per lead recreation assistant. Hypertension. Continue antihypertensive medications. Permanent atrial fibrillation. Continue Coumadin and follow-up INR. Hypothyroidism. Continue Synthroid. Anemia. Follow H&H and transfuse for hemoglobin less than 7. Thrombocytopenia. Follow CBC. History Interval history: No new issues overnight. Patient clinically improving. Hospitalist Physical - Constitutional Vitals: Temp Pulse Resp BP Pulse Ox 98.2 F 66 18 124/71 96 05/19/19 04:35 05/19/19 12:53 05/19/19 04:33 05/19/19 12:53 05/19/19 12:53 General appearance: Present: no acute distress - EENT Eyes: Present: PERRL, EOM intact ENT: hearing intact, clear oral mucosa, dentition normal - Neck Neck: Present: supple, normal ROM - Respiratory Respiratory effort: normal Respiratory: bilateral: CTA - Cardiovascular Rhythm: regular Heart Sounds: Present: S1 & S2. Absent: gallop, rub - Extremities Extremities: no ischemia, No edema, Full ROM - Abdominal General gastrointestinal: soft, non-tender, non-distended, normal bowel sounds - Integumentary Integumentary: Present: clear, warm, dry - Neurologic Neurologic: CNII-XII intact, moves all extremities Results - Labs CBC & Chem 7: 05/17/19 05:51 05/19/19 05:45 Labs: Laboratory Last Values WBC 3.4 K/mm3 (4.5-11.0) L 05/17/19 05:51 RBC 2.53 M/mm3 (3.65-5.03) L 05/17/19 05:51 Hgb 9.4 gm/dl (10.1-14.3) L 05/17/19 05:51 Hct 28.0 % (30.3-42.9) L 05/17/19 05:51 MCV 111 fl (79-97) H 05/17/19 05:51 MCH 37 pg (28-32) H 05/17/19 05:51 MCHC 34 % (30-34) 05/17/19 05:51 RDW 16.9 % (13.2-15.2) H 05/17/19 05:51 Plt Count 117 K/mm3 (140-440) L 05/17/19 05:51 Lymph % (Auto) 36.7 % (13.4-35.0) H 05/17/19 05:51 [place] % (Auto) 10.7 % (0.0-7.3) H 05/17/19 05:51 Eos % (Auto) 2.8 % (0.0-4.3) 05/17/19 05:51 Baso % (Auto) 0.5 % (0.0-1.8) 05/17/19 05:51 Lymph # 1.3 K/mm3 (1.2-5.4) 05/17/19 05:51 [place] # 0.4 K/mm3 (0.0-0.8) 05/17/19 05:51 Eos # 0.1 K/mm3 (0.0-0.4) 05/17/19 05:51 Baso # 0.0 K/mm3 (0.0-0.1) 05/17/19 05:51 Seg Neutrophils % 49.3 % (40.0-70.0) 05/17/19 05:51 Seg Neutrophils # 1.7 K/mm3 (1.8-7.7) L 05/17/19 05:51 PT 20.2 Sec. (12.2-14.9) H 05/19/19 05:45 INR 1.77 (0.87-1.13) H 05/19/19 05:45 Sodium 138 mmol/L (137-145) 05/19/19 05:45 Potassium 3.9 mmol/L (3.6-5.0) 05/19/19 05:45 Chloride 99.6 mmol/L (98-107) 05/19/19 05:45 Carbon Dioxide 26 mmol/L (22-30) 05/19/19 05:45 16 mmol/L 05/19/19 05:45 BUN 17 mg/dL (7-17) 05/19/19 05:45 1.4 mg/dL (0.7-1.2) H 05/19/19 05:45 Estimated GFR 36 ml/min 05/19/19 05:45 12 % 05/19/19 05:45 Glucose 84 mg/dL (65-100) 05/19/19 05:45 5.6 % (4-6) 05/17/19 05:51 Calcium 8.6 mg/dL (8.4-10.2) 05/19/19 05:45 1.40 mg/dL (0.1-1.2) H 05/17/19 05:51 AST 22 units/L (5-40) 05/17/19 05:51 ALT 11 units/L (7-56) 05/17/19 05:51 66 units/L (35-129) 05/17/19 05:51 NT-Pro-B Natriuret Pep 2752 pg/mL (0-900) H 05/16/19 14:47 6.8 g/dL (6.3-8.2) 05/17/19 05:51 3.1 g/dL (3.9-5) L 05/17/19 05:51 0.8 % 05/17/19 05:51 Active Medications - Current Medications Current Medications: Generic Name Dose Route Start Last Admin Trade Name Macarioq PRN Reason Stop Dose Admin Acetaminophen 650 mg 05/17/19 01:38 Tylenol PO Q4H PRN Pain MILD(1-3)/Fever >100.5/MILLER Aspirin 81 mg 05/17/19 10:00 05/19/19 09:40 Halfprin Ec PO 81 mg QDAY ALEKS Administration Bumetanide 1 mg 05/18/19 18:00 05/19/19 06:30 Bumex IV 1 mg BID@0600,1800 ALEKS Administration Cholecalciferol 2,000 unit 05/17/19 10:00 05/19/19 09:40 Vitamin D3 PO 2,000 unit DAILY ALEKS Administration Enoxaparin Sodium 30 mg 05/19/19 10:00 05/19/19 09:41 Lovenox SUB-Q 30 mg QDAY ALEKS Administration Famotidine 10 mg 05/17/19 10:00 05/19/19 09:40 Pepcid PO 10 mg BID ALEKS Administration Fish Oil 1,000 mg 05/17/19 10:00 05/19/19 09:40 Fish Oil PO 1,000 mg QDAY ALEKS Administration Hydromorphone HCl 0.5 mg 05/17/19 01:38 05/18/19 21:27 Dilaudid IV 0.5 mg Q3H PRN Administration Pain , Severe (7-10) Levothyroxine Sodium 112 mcg 05/17/19 06:00 05/19/19 06:25 Synthroid PO 112 mcg QDAY@0600 [facility] Administration Metoclopramide HCl 5 mg 05/17/19 01:49 Reglan IV Q6H PRN Nausea And Vomiting Metoprolol Tartrate 50 mg 05/17/19 02:00 05/19/19 09:40 Lopressor PO 50 mg BID ALEKS Administration Ondansetron HCl 4 mg 05/17/19 01:38 Zofran IV Q8H PRN Nausea And Vomiting Oxycodone/Acetaminophen 1 tab 05/17/19 01:38 05/19/19 06:25 Percocet 5/325 PO 1 tab Q6H PRN Administration Pain, Moderate (4-6) Potassium Chloride 20 meq 05/17/19 10:00 05/19/19 09:40 K-Dur PO 20 meq Q12HR ALEKS Administration Sodium Chloride 10 ml 05/17/19 10:00 05/18/19 21:28 Sodium Chloride Flush Syringe 10 Ml IV 10 ml BID ALEKS Administration Sodium Chloride 10 ml 05/17/19 01:38 05/17/19 22:13 Sodium Chloride Flush Syringe 10 Ml IV 10 ml PRN PRN Administration LINE FLUSH Warfarin Sodium 3 mg 05/19/19 17:00 Coumadin PO DAILY@1700 [facility] Nutrition/Malnutrition Assess - Dietary Evaluation Nutrition/Malnutrition Findings: Nutrition Notes Start: 05/17/19 14:54 Freq: Status: Active Protocol: Document 05/18/19 18:03 (Rec: 05/18/19 18:08 [email or web address]) Nutrition Notes Initial or Follow up Reassessment Current Diagnosis Hypertension,Heart Failure, Hyperlipidemia Other Pertinent Diagnosis RI Current Diet Cardiac Labs/Tests Reviewed Pertinent Medications Reviewed Height 5 ft 5 in Weight 84.2 kg [place] Body Weight (kg) 56.81 BMI 30.9 Weight change and time frame Current wt obtained from [facility] Subjective/Other Information Pt stated that her appetite is poor and that she ate 25% of her lunch. Stated that she did not eat the meat d/t not having a taste for me recently . Noted unopened Ensure Enlive a bedside. Pt stated that it was the first one she received and that she intends to drink it. Also stated that she would be willing to drink it BID. Percent of energy/protein needs met: 39%/29% Burn Absent Trauma Absent #1 Nutrition Diagnosis Inadequate oral intake Diagnosis Progress(for reassessment Continues documentation) Is patient on ventilator? No Is Patient Ambulatory and/or Out of Bed Yes REE-([place]. or-ambulatory/OOB) [ 1394.244 NUTR.MSJOOB] Kcal/Kg value to use for calculation 16 Approximate Energy Requirements Using 1347 kcal/Kg Calculation Used for Recommendations Kcal/kg Additional Notes Protein Needs: 72-86g (1-1.2g/ kg 72kg adjBW) Fluid Needs: 1 ml/kcal Nutrition Intervention Change Diet Order: Continue current Add Supplement/Snack (indicate name/kcal Ensure Enlive Chocolate BID /protein ) Provides kCal: 350 Provides Protein (gm) 20 Goal #1 Meet at least 75% of calorie and protein needs via PO and ONS intakes Anticipated Discharge Needs: Cardiac diet Follow-Up By: 05/23/19 Additional Comments Follow for PO and ONS intakes
[2019-05-19] MEDS ORDERED: COUMADIN PO SCH (17:00)
[2019-05-19] MEDS: SODIUM CHLORIDE FLUSH SYRINGE 10 ML IV SCH (21:33)
[2019-05-20] MEDS: SYNTHROID PO SCH (05:06)
[2019-05-20] MEDS: PERCOCET 5/325 PO PRN (05:06)
[2019-05-20] MEDS: BUMEX IV SCH (06:16)
[2019-05-20 06:51] LABS: INR 1.79 (0.87-1.13)
[2019-05-20 06:55] LABS: Calcium 9.2 mg/dL (8.4-10.2)
--- NOTE | 2019-05-20 08:00 | Discharge Summary ---
Providers - Providers Date of Admission: 05/16/19 14:15 Date of discharge: 05/20/19 Attending physician: BIBI GAITAN Primary care physician: OLIVIA RAMOS Hospitalization Reason for admission: chf [facility] Hospital course: The patient is an 84 year old female who is followed by Dr. Puri with a history of chronic HFrEF, ischemic cardiomyopathy, apical thrombus, CAD s/p LA and PCI, chronic atrial fibrillation, anticoagulated with coumadin, chronic kidney disease, hypertension, hyperlipidemia, hypothyroidism. She presented cardiology office with c/o progressively worsening SOB, GREY, PND, orthopnea and BLE swelling for the past 2 weeks CPC and was directly admitted to [facility] for acute on chronic HFrEF and acute hypoxic respiratory failure. Echo done 07/2018 showed EF 40-45%, LA and RA severely dilated, mod MR, mod to severe TR, RVSP 37mmHg, no intracardiac mass or thrombus. PET MPI done 12/2016 was negative for ischemia. The patient was treated with IV Lasix but did not respond well initially. Cardiology change medication to IV Bumex which she showed significant improvement. Patient had significant improvement in her respiratory failure and bilateral lower extremity swelling. Patient returned back to her baseline and is felt to have received maximal hospital benefit for discharge. Dedicated discharge time 35 minutes. Disposition: DC-01 TO HOME OR SELFCARE Time spent for discharge: 35 - Discharge Diagnoses (1) Acute exacerbation of CHF (congestive heart failure) Status: Acute Qualifiers: Heart failure type: combined systolic and diastolic Qualified Code(s): I50.43 - Acute on chronic combined systolic (congestive) and diastolic (congestive) heart failure (2) CAD (coronary artery disease) Status: Chronic Qualifiers: Coronary Disease-Associated Artery/Lesion type: [place] coronary artery [place] vs. transplanted heart: [place] heart Associated angina: with unstable angina pectoris (3) CKD (chronic kidney disease) Status: Chronic (4) Hypertension Status: Chronic Qualifiers: Hypertension type: essential hypertension Qualified Code(s): I10 - Essential (primary) hypertension (5) Hypothyroidism Status: Chronic Qualifiers: Hypothyroidism type: acquired Qualified Code(s): E03.9 - Hypothyroidism, unspecified (6) Ischemic cardiomyopathy Status: Chronic (7) Pedal edema Status: Chronic (8) Permanent atrial fibrillation Status: Chronic (9) Acute on chronic systolic heart failure Status: Acute (10) HTN (hypertension) Status: Chronic Qualifiers: Hypertension type: essential hypertension Qualified Code(s): I10 - Essential (primary) hypertension Core Measure Documentation - Palliative Care Palliative Care/ Comfort Measures: Not Applicable - Core Measures Any of the following diagnoses?: heart failure - Heart Failure Discharge Requirements TANJA/ARB for LVSD if EF <40%: No Reason for no TANJA/ARB: Renal impairment Beta nayeli at discharge: Yes Exam - Constitutional Vitals: Temp Pulse Resp BP Pulse Ox 98.3 F 69 20 111/36 96 05/20/19 04:06 05/20/19 04:06 05/20/19 04:06 05/20/19 04:06 05/20/19 04:06 General appearance: Present: no acute distress, well-nourished - EENT Eyes: Present: PERRL ENT: hearing intact, clear oral mucosa - Neck Neck: Present: supple, normal ROM - Respiratory Respiratory effort: normal Respiratory: bilateral: CTA - Cardiovascular Heart Sounds: Present: S1 & S2. Absent: rub, click - Extremities Extremities: pulses symmetrical, No edema Peripheral Pulses: within normal limits - Abdominal General gastrointestinal: Present: soft, non-tender, non-distended, normal bowel sounds Female genitourinary: Present: normal - Integumentary Integumentary: Present: clear, warm, dry - Musculoskeletal Musculoskeletal: gait normal, strength equal bilaterally - Psychiatric Psychiatric: appropriate mood/affect, intact judgment & insight - Neurologic Neurologic: CNII-XII intact, moves all extremities Plan Activity: advance as tolerated Weight Bearing Status: Weight Bear as Tolerated Diet: low fat, low cholesterol, low salt Follow up with: OLIVIA RAMOS MD [Primary Care Provider] - 7 Days BARTOLOME PURI MD [Staff Physician] - 7 Days (Follow up in our [place] office with Dr. Puri on 05/23/2019 @ 11:45AM. ) Forms: Warfarin Discharge Instruction Prescriptions: Aspirin EC 81 mg PO QDAY #30 tablet Bumetanide [Bumex 1 mg tab] 1 mg PO BID #60 tab Warfarin [Coumadin] 2.5 mg PO QPM #30 tablet [place]-3 Fatty Acids/Fish Oil [Fish Oil] 1,000 mg PO QDAY #30 capsule Metoprolol [Lopressor TAB] 50 mg PO BID #60 tablet HYDROcodone/APAP 10-325 [[place] 10-325 mg TAB] 1 - 2 each PO TID PRN #14 tablet PRN Reason: Pain , Severe (7-10) Cyanocobalamin [Vitamin B-12] 1,000 mcg PO DAILY #30 tablet Cholecalciferol Vit D3 [Vitamin D3 1,000 UNIT TAB] 2,000 unit PO DAILY #30 tablet
[2019-05-20] MEDS: HALFPRIN EC PO SCH (09:03)
[2019-05-20] MEDS: VITAMIN D3 PO SCH (09:03)
[2019-05-20] MEDS: SODIUM CHLORIDE FLUSH SYRINGE 10 ML IV SCH (09:03)
[2019-05-20] MEDS: FISH OIL PO SCH (09:03)
[2019-05-20] MEDS: PEPCID PO SCH (09:03)
[2019-05-20] MEDS: LOPRESSOR PO SCH (09:04)
[2019-05-20] MEDS: K-DUR PO SCH (09:04)
[2019-05-20] MEDS: LOVENOX SUB-Q SCH (09:05)
[2019-05-20 09:09] VITALS: BP 112/86
--- NOTE | 2019-05-20 11:01 | Progress Note ---
Assessment and Plan Currently stable cardiac status. Pt may discharge home from cardiology standpoint. At discharge, recommend PO bumex 1mg BID (no lasix or Zaroxolyn at home). Cont all other present cardiac management. Follow up in our [place] office with Dr. Puri on 05/23/2019 @ 11:45AM. The patient has been seen in conjunction with Dr. Acosta who agrees with the assessment and plan of care. - Patient Problems (1) Acute on chronic systolic heart failure Current Visit: No Status: Acute (2) Ischemic cardiomyopathy Current Visit: Yes Status: Chronic (3) CAD (coronary artery disease) Current Visit: Yes Status: Chronic Qualifiers: Coronary Disease-Associated Artery/Lesion type: [place] coronary artery [place] vs. transplanted heart: [place] heart Associated angina: with unstable angina pectoris (4) Stented coronary artery Current Visit: Yes Status: Chronic (5) Permanent atrial fibrillation Current Visit: Yes Status: Chronic (6) CKD (chronic kidney disease) Current Visit: Yes Status: Chronic (7) Hypertension Current Visit: Yes Status: Chronic Qualifiers: Hypertension type: essential hypertension Qualified Code(s): I10 - Essential (primary) hypertension (8) Hypothyroidism Current Visit: Yes Status: Chronic Qualifiers: Hypothyroidism type: acquired Qualified Code(s): E03.9 - Hypothyroidism, unspecified (9) Anemia Current Visit: Yes Status: Acute (10) Thrombocytopenia Current Visit: Yes Status: Acute Subjective Date of service: 05/20/19 Principal diagnosis: HF Interval history: pt laying flat comfortably, states she is feeling well. feels ready to discharge home. in AFib with CVR on tele. Objective Last Vital Signs Temp 98.3 F 05/20/19 04:06 Pulse 106 H 05/20/19 09:04 Resp 20 05/20/19 04:06 BP 112/86 05/20/19 09:04 Pulse Ox 96 05/20/19 04:06 - Physical Examination General: No Apparent Distress HEENT: Positive: PERRL, Normocephaly, Mucus Membranes Moist Neck: Positive: neck supple, trachea midline Cardiac: Positive: irregularly irregular, S1/S2 Lungs: Positive: Decreased Breath Sounds Neuro: Positive: Grossly Intact Abdomen: Negative: Tender Skin: Positive: Bruising (BLE) Extremities: Present: +2 Edema (BLE) - Labs and Meds Coagulation 05/20/19 Range/Units 05:47 PT 20.4 H (12.2-14.9) Sec. INR 1.79 H (0.87-1.13) Comprehensive Metabolic Panel 05/20/19 Range/Units 05:47 Sodium 140 (137-145) mmol/L Potassium 4.0 (3.6-5.0) mmol/L Chloride 99.0 (98-107) mmol/L Carbon Dioxide 30 (22-30) mmol/L BUN 16 (7-17) mg/dL Creatinine 1.6 H (0.7-1.2) mg/dL Glucose 88 (65-100) mg/dL Calcium 9.2 (8.4-10.2) mg/dL - Imaging and Cardiology EKG: report reviewed, image reviewed Echo: report reviewed (07/2018 showed EF 40-45%, LA and RA severely dilated, mod MR, mod to severe TR, RVSP 37mmHg, no intracardiac mass or thrombus. )
[2019-05-20] MEDS ORDERED: COUMADIN PO SCH (17:00)
== END 2019-05-20 13:11 | disposition home or self-care (01) | DRG 291 ==
LOC: 4A 13:47 → UNDOADMIN 13:47 → 4A 14:15
PROVIDERS: ADMIT Internal Medicine; ATTEND Hospitalist
DX: I13.0 Hypertensive heart and chronic kidney disease with heart failure and stage 1 through stage 4 chronic kidney disease, or unspecified chronic kidney disease (principal); I50.43 Acute on chronic combined systolic (congestive) and diastolic (congestive) heart failure; J96.01 Acute respiratory failure with hypoxia; I25.110 Atherosclerotic heart disease of native coronary artery with unstable angina pectoris; N18.3 Chronic kidney disease, stage 3 (moderate); I25.5 Ischemic cardiomyopathy; I48.2 Chronic atrial fibrillation; E03.9 Hypothyroidism, unspecified; D64.9 Anemia, unspecified; D69.6 Thrombocytopenia, unspecified; I25.2 Old myocardial infarction; Z79.01 Long term (current) use of anticoagulants; Z82.49 Family history of ischemic heart disease and other diseases of the circulatory system; Z79.899 Other long term (current) drug therapy; Z95.5 Presence of coronary angioplasty implant and graft; Z79.82 Long term (current) use of aspirin
CPT/HCPCS: 36415; 71046; 80048; 80053; 83036; 83880; 85025; 85610; 93005; 93010; 93306; G0378; J1170; J1650; J1940

== ENCOUNTER 2019-07-12 20:32 | Emergency (ER) | payer MEDICARE, OTHER ==
--- NOTE | 2019-07-12 20:50 | Emergency Department Report ---
ED Fall HPI - General Stated Complaint: FALL/HIT SIDE OF HEAD/FACE Time Seen by Provider: 07/12/19 20:40 - History of Present Illness Initial Comments: Patient is 84 years old female, lived by herself, brought from home by EMS for evaluation after she fell just prior to coming to the ER. Patient stated that she lost her balance going through her door and fell landed on her right side. Patient is complaining off headache, right elbow and left foot pain. Patient denied any loss of consciousness. Patient denied any other injuries. Patient stated that there is no symptoms prior to the fall. She is taking warfarin 2.5 mg daily. MD Complaint: fall Fall From: standing When Fall Occurred: just prior to arrival Fall Witnessed: no Place Fall Occurred: home Loss of Consciousness: none Prolonged Down Time?: no Symptoms Prior to Fall: none Location: head Location - Extremities: Left: Foot, Right: Elbow Severity: moderate Severity scale (0 -10): 4 Quality: sharp Context: tripped/slipped Associated Symptoms: denies - Related Data Previous Rx's Medication Instructions Recorded Last Taken Type Cholecalciferol (Vitamin D3) 2,000 unit PO DAILY #60 capsule 04/22/18 Unknown Rx [Vitamin D3] Levothyroxine Sodium [Synthroid] 112 mcg PO QDAY #30 tablet 04/22/18 Unknown Rx [place]-3/Dha/Epa/Fish Oil [Fish Oil 1 each PO DAILY #30 capsule 04/22/18 Unknown Rx 1,000 mg Softgel] Ciprofloxacin HCl [Ciprofloxacin 500 mg PO Q12H #14 tab 08/26/18 Unknown Rx TAB] Saccharomyces Boulardii [Florastor] 250 mg PO DAILY #30 capsule 08/26/18 Unknown Rx Aspirin EC [Halfprin EC] 81 mg PO QDAY #30 tablet 05/20/19 Unknown Rx Bumetanide [Bumex 1 mg tab] 1 mg PO BID #60 tab 05/20/19 Unknown Rx Cholecalciferol Vit D3 [Vitamin D3 2,000 unit PO DAILY #30 tablet 05/20/19 Unknown Rx 1,000 UNIT TAB] Cyanocobalamin [Vitamin B-12] 1,000 mcg PO DAILY #30 tablet 05/20/19 Unknown Rx Famotidine [Pepcid] 10 mg PO BID tablet 05/20/19 Unknown Rx HYDROcodone/APAP 10-325 [[place] 1 - 2 each PO TID PRN #14 tablet 05/20/19 Unknown Rx 10-325 mg TAB] Metoprolol [Lopressor TAB] 50 mg PO BID #60 tablet 05/20/19 Unknown Rx [place]-3 Fatty Acids/Fish Oil [Fish 1,000 mg PO QDAY #30 capsule 05/20/19 Unknown Rx Oil] Warfarin [Coumadin] 2.5 mg PO QPM #30 tablet 05/20/19 Unknown Rx Allergies Allergy/AdvReac Type Severity Reaction Status Date / Time No Known Allergies Allergy Unverified 06/17/17 14:54 ED Review of Systems ROS: Stated complaint: FALL/HIT SIDE OF HEAD/FACE Other details as noted in HPI Comment: All other systems reviewed and negative Constitutional: denies: chills, fever Respiratory: denies: cough, shortness of breath, SOB with exertion Cardiovascular: denies: chest pain, palpitations Gastrointestinal: denies: abdominal pain, nausea, vomiting, diarrhea, constipation, hematemesis, melena, hematochezia Musculoskeletal: denies: back pain Neurological: headache. denies: weakness, numbness, paresthesias, confusion, abnormal gait ED Past Medical Hx - Past Medical History Hx Hypertension: Yes Hx Heart Attack/AMI: Yes (stent x 5) Hx Congestive Heart Failure: Yes Hx Pulmonary Embolism: Yes Hx Arthritis: Yes Additional medical history: AFIB. CAD - Surgical History Hx Coronary Stent: Yes Hx Cholecystectomy: Yes Hx Breast Surgery: Yes (lumpectomy) Additional Surgical History: cataracts. tonsillectomy. knee surgeries. 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 "spinal stenosis surgery" - Social History Smoking Status: Never Smoker - Medications Home Medications: Home Medications Medication Instructions Recorded Confirmed Last Taken Type Cholecalciferol (Vitamin D3) 2,000 unit PO DAILY #60 capsule 04/22/18 Unknown Rx [Vitamin D3] Levothyroxine Sodium [Synthroid] 112 mcg PO QDAY #30 tablet 04/22/18 Unknown Rx [place]-3/Dha/Epa/Fish Oil [Fish Oil 1 each PO DAILY #30 capsule 04/22/18 Unknown Rx 1,000 mg Softgel] Ciprofloxacin HCl [Ciprofloxacin 500 mg PO Q12H #14 tab 08/26/18 Unknown Rx TAB] Saccharomyces Boulardii [Florastor] 250 mg PO DAILY #30 capsule 08/26/18 Unknown Rx Aspirin EC [Halfprin EC] 81 mg PO QDAY #30 tablet 05/20/19 Unknown Rx Bumetanide [Bumex 1 mg tab] 1 mg PO BID #60 tab 05/20/19 Unknown Rx Cholecalciferol Vit D3 [Vitamin D3 2,000 unit PO DAILY #30 tablet 05/20/19 Unknown Rx 1,000 UNIT TAB] Cyanocobalamin [Vitamin B-12] 1,000 mcg PO DAILY #30 tablet 05/20/19 Unknown Rx Famotidine [Pepcid] 10 mg PO BID tablet 05/20/19 Unknown Rx HYDROcodone/APAP 10-325 [[place] 1 - 2 each PO TID PRN #14 tablet 05/20/19 Unknown Rx 10-325 mg TAB] Metoprolol [Lopressor TAB] 50 mg PO BID #60 tablet 05/20/19 Unknown Rx [place]-3 Fatty Acids/Fish Oil [Fish 1,000 mg PO QDAY #30 capsule 05/20/19 Unknown Rx Oil] Warfarin [Coumadin] 2.5 mg PO QPM #30 tablet 05/20/19 Unknown Rx ED Physical Exam - General General appearance: alert - Head Head exam: Present: other (3x3 cm hematoma to the right frontal area.) - Eye Eye exam: Present: normal appearance, PERRL - ENT ENT exam: Present: normal exam, normal orophraynx, mucous membranes moist - Neck Neck exam: Present: normal inspection, full ROM. Absent: tenderness, meni ngismus, lymphadenopathy, thyromegaly - Respiratory Respiratory exam: Present: normal lung sounds bilaterally - Cardiovascular Cardiovascular Exam: Present: regular rate, normal rhythm, normal heart sounds - GI/Abdominal GI/Abdominal exam: Present: soft, normal bowel sounds. Absent: distended, tenderness, guarding, rebound, rigid, organomegaly, mass, bruit, pulsatile mass, hernia - Extremities Exam Extremities exam: Present: normal inspection, full ROM, normal capillary refill. Absent: tenderness, pedal edema, calf tenderness - Back Exam Back exam: Present: normal inspection, full ROM. Absent: CVA tenderness (R), CVA tenderness (L), muscle spasm, paraspinal tenderness, vertebral tenderness - Neurological Exam Neurological exam: Present: alert, oriented X3, CN II-XII intact, normal gait. Absent: motor sensory deficit - Psychiatric Psychiatric exam: Present: normal mood - Skin Skin exam: Present: intact, ecchymosis (right elbow area.) ED Course Vital Signs 07/12/19 07/12/19 20:50 23:35 Temperature 98.5 F Pulse Rate 92 H Respiratory 12 18 Rate Blood Pressure 109/59 Blood Pressure 109/59 [Left] O2 Sat by Pulse 96 Oximetry ED Medical Decision Making - Lab Data Result diagrams: 07/12/19 21:24 07/12/19 21:24 - Radiology Data Radiology results: report reviewed - Medical Decision Making Patient is 84 years old female, lived by herself, brought from home by EMS for evaluation after she fell just prior to coming to the ER. Patient stated that she lost her balance going through her door and fell landed on her right side. Patient is complaining off headache, right elbow and left foot pain. Patient denied any loss of consciousness. Patient denied any other injuries. Patient stated that there is no symptoms prior to the fall. She is taking warfarin 2.5 mg daily. Patient remained stable in the ER. CT brain is negative for acute finding except for scalp hematoma. Left foot x-ray is negative for acute finding. Right foot show possible radial head fracture with no dislocation. Patient had a sugar tong splinting in the ER. Patient advised to follow-up with Dr. Barone in the next 2-3 days. Fall precaution printout given to the patient. Patient advised to follow-up with her primary care physician in the next 2-3 days and to attend to the ER if she develops any new symptoms. Critical care attestation.: If time is entered above; I have spent that time in minutes in the direct care of this critically ill patient, excluding procedure time. ED Disposition Clinical Impression: Head injury, Fall, Elbow fracture, right Disposition: DC-01 TO HOME OR SELFCARE Is pt being admited?: No Condition: Stable Instructions: Elbow Fracture in Adults (ED), Fall Prevention (ED), Minor Head Injury (ED) Referrals: OLIVIA RAMOS MD [Primary Care Provider] - 3-5 Days NATANAEL BARONE MD [Staff Physician] - 3-5 Days
[2019-07-12 21:48] LABS: Basophils % (Auto) 0.5 % (0.0-1.8); Eosinophils # (Auto) 0.1 K/mm3 (0.0-0.4); Eosinophils % (Auto) 1.3 % (0.0-4.3); Hematocrit 35.7 % (30.3-42.9); Hemoglobin 12.2 gm/dl (10.1-14.3); Lymphocytes # (Auto) 1.7 K/mm3 (1.2-5.4); Lymphocytes % (Auto) 22.7 % (13.4-35.0); Mean Corpuscular HGB Conc 34 % (30-34); Mean Corpuscular Volume 108 fl (79-97); Monocytes # (Auto) 0.7 K/mm3 (0.0-0.8); Monocytes % (Auto) 9.3 % (0.0-7.3); Platelet Count 151 K/mm3 (140-440); Red Cell Distribution Width 15.3 % (13.2-15.2)
[2019-07-12 22:00] LABS: INR 3.03 (0.87-1.13)
[2019-07-12 22:02] LABS: Partial Thromboplastin Time 33.7 Sec. (24.2-36.6)
[2019-07-12 22:03] LABS: Calcium 9.6 mg/dL (8.4-10.2)
--- NOTE | 2019-07-12 22:16 | XRay Report ---
Left foot-2 views INDICATION: fall/ foot pain. Fall today with generalized pain to the second toe COMPARISON: None. IMPRESSION: Bones are diffusely osteopenic, with scattered generalized degenerative changes but no a cute fracture or dislocation identified. Signer Name: Trevor Funk MD Signed: 07/12/2019 10:12 PM Workstation Name: [id number]
--- NOTE | 2019-07-12 22:17 | XRay Report ---
Right elbow-2 views INDICATION: fall, elbow pain. Fall today with generalized elbow pain COMPARISON: None. IMPRESSION: Subtle fracture along the mid radial head on the frontal view with small joint effusion. No significant displacement. Signer Name: Trevor Funk MD Signed: 07/12/2019 10:13 PM Workstation Name: [id number]
--- NOTE | 2019-07-12 22:49 | Cat Scan Report ---
CT HEAD WITHOUT CONTRAST INDICATION: head injury TECHNIQUE: Axial slices were obtained through the head. Coronal and sagittal reformatted images were obtained. COMPARISON: None available. FINDINGS: There is no intracranial hemorrhage or extra-axial fluid collection. Ventricles, basilar cisterns, an d sulci appear within normal limits for age. There is no mass lesion or midline shift. No acute tulio torial infarct is identified. Bone windows demonstrate no acute osseous abnormality. There is mucosal thickening in the inferior le ft maxillary sinus. There is scalp hematoma in the right temporal region. TECHNIQUE: All CT scans at this facility use dose modulation, iterative reconstruction, automated ex posure control, weight based dosing, when appropriate, to reduce radiation dose to as low as reasonab ly achievable. IMPRESSION: 1. No acute intracranial abnormality. 2. There is a scalp hematoma on the right. Signer Name: James Prajapati MD Signed: 07/12/2019 10:44 PM Workstation Name: [id number]
[2019-07-12] MEDS ORDERED: ZOFRAN ODT PO ONE (23:15)
[2019-07-12] MEDS ORDERED: NORCO 5/325 PO ONE (23:15)
[2019-07-13 02:19] VITALS: BP 129/86
== END 2019-07-13 01:30 | disposition home or self-care (01) ==
LOC: ED 20:32
DX: S52.121A Displaced fracture of head of right radius, initial encounter for closed fracture (principal); S09.90XA Unspecified injury of head, initial encounter; M79.672 Pain in left foot; I11.0 Hypertensive heart disease with heart failure; I50.9 Heart failure, unspecified; I25.2 Old myocardial infarction; M19.90 Unspecified osteoarthritis, unspecified site; I25.10 Atherosclerotic heart disease of native coronary artery without angina pectoris; Z95.5 Presence of coronary angioplasty implant and graft; Z90.49 Acquired absence of other specified parts of digestive tract; Z90.89 Acquired absence of other organs; Z98.890 Other specified postprocedural states; Z79.899 Other long term (current) drug therapy; W19.XXXA Unspecified fall, initial encounter; Y93.89 Activity, other specified; Y92.89 Other specified places as the place of occurrence of the external cause; Y99.8 Other external cause status
CPT/HCPCS: 36415; 70450; 80048; 85025; 85610; 85730; Q0162

== ENCOUNTER 2019-12-04 16:26 | Emergency (ER) | payer MEDICARE ==
[2019-12-04] MEDS ORDERED: OXYMETAZOLINE 0.05% NASAL SPRAY NS ONE (18:21)
--- NOTE | 2019-12-04 18:29 | Emergency Department Report ---
HPI - General Time Seen by Provider: 12/04/19 18:15 - HPI HPI: 84-year-old female presents to the emergency department with a complaint of right-sided nosebleed that has been going on since about 2:30 PM. She says it has been moderate to heavy bleeding throughout the afternoon. She has a history of CHF, atrial fibrillation, coronary artery disease with PR, end-stage renal disease not on dialysis. The patient is on warfarin and a baby aspirin for anticoagulation. Her primary care physician is a Dr. Villanueva, mender hand is Dr. Puri and special education tutor is Dr. Delacruz. ED Past Medical Hx - Past Medical History Hx Hypertension: Yes Hx Heart Attack/AMI: Yes (stent x 5) Hx Congestive Heart Failure: Yes Hx Pulmonary Embolism: Yes Hx Arthritis: Yes Additional medical history: AFIB. CAD - Surgical History Hx Coronary Stent: Yes Hx Cholecystectomy: Yes Hx Breast Surgery: Yes (lumpectomy) Additional Surgical History: cataracts. tonsillectomy. knee surgeries. 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 "spinal stenosis surgery" - Social History Smoking Status: Never Smoker - Medications Home Medications: Home Medications Medication Instructions Recorded Confirmed Last Taken Type Cholecalciferol (Vitamin D3) 2,000 unit PO DAILY #60 capsule 04/22/18 11/16/19 Unknown Rx [Vitamin D3] Levothyroxine Sodium [Synthroid] 112 mcg PO QDAY #30 tablet 04/22/18 11/16/19 Unknown Rx [place]-3/Dha/Epa/Fish Oil [Fish Oil 1 each PO DAILY #30 capsule 04/22/18 11/16/19 Unknown Rx 1,000 mg Softgel] Saccharomyces Boulardii [Florastor] 250 mg PO DAILY #30 capsule 08/26/18 11/16/19 Unknown Rx HYDROcodone/APAP 10-325 [[place] 1 - 2 each PO TID PRN #14 tablet 05/20/19 11/16/19 Unknown Rx 10-325 mg TAB] Warfarin [Coumadin] 2.5 mg PO QPM #30 tablet 05/20/19 11/16/19 Unknown Rx HYDROcodone/APAP 5-325 [[place] 1 each PO Q6HR PRN #14 tablet 07/13/19 11/16/19 Unknown Rx 5-325 mg TAB] Ondansetron [Zofran ODT TAB] 4 mg PO Q8HR PRN #14 tab.rapdis 07/13/19 11/16/19 Unknown Rx Aspirin EC [Halfprin EC] 81 mg PO QDAY #30 tablet 11/18/19 Unknown Rx Bumetanide [Bumex 1 mg tab] 1 mg PO BID #60 tab 11/18/19 Unknown Rx Cholecalciferol Vit D3 [Vitamin D3 2,000 unit PO DAILY #30 tablet 11/18/19 Unknown Rx 1,000 UNIT TAB] Cyanocobalamin [Vitamin B-12] 1,000 mcg PO DAILY #30 tablet 11/18/19 Unknown Rx Famotidine [Pepcid] 10 mg PO BID #30 tablet 11/18/19 Unknown Rx Metoprolol [Lopressor TAB] 50 mg PO BID #60 tablet 11/18/19 Unknown Rx [place]-3 Fatty Acids/Fish Oil [Fish 1,000 mg PO QDAY #30 capsule 11/18/19 Unknown Rx Oil] metOLazone [Zaroxolyn] 2.5 mg PO DAILY@0600 #30 tablet 11/18/19 Unknown Rx Sulfamethoxazole/Trimethoprim 1 each PO BID #10 tablet 12/04/19 Unknown Rx [Bactrim DS TAB] ED Review of Systems ROS: Stated complaint: NOSE BLEED Other details as noted in HPI Comment: All other systems reviewed and negative Constitutional: denies: chills, fever Eyes: denies: eye pain, vision change ENT: epistaxis. denies: ear pain, throat pain Respiratory: denies: cough, shortness of breath Cardiovascular: denies: chest pain, palpitations Gastrointestinal: denies: abdominal pain, vomiting Genitourinary: denies: dysuria, discharge Musculoskeletal: denies: back pain, arthralgia Skin: denies: rash, lesions Neurological: denies: headache, weakness Hematological/Lymphatic: easy bleeding Physical Exam - Physical Exam Physical Exam: GENERAL: The patient is well-developed well-nourished. HEENT: Normocephalic. Atraumatic. Patient has moist mucous membranes. Patient has moderate bleeding from the right nasal passage. Left nasal passage is clear. Oropharynx clear. EYES: Extraocular motions are intact. Pupils equal and reactive to light bilaterally. NECK: Supple. Trachea is midline. CHEST/LUNGS: Clear to auscultation. There is no respiratory distress noted. HEART/CARDIOVASCULAR: Irregular rhythm. There is no tachycardia. ABDOMEN: Abdomen is soft, nontender. Patient has normal bowel sounds. SKIN:Skin is warm and dry. . NEURO: The patient is awake, alert, and oriented. The patient is cooperative. Normal speech. MUSCULOSKELETAL: There is no tenderness or deformity. There is no evidence of acute injury. ED Medical Decision Making - Lab Data Result diagrams: 12/04/19 19:19 12/04/19 19:19 - Medical Decision Making The patient presented with moderate epistaxis from the right nasal passage that have been going on for the past 4 or 5 hours, since about 2:30 PM this afternoon. On examination the patient doesn't fact have this moderate epistaxis despite holding pressure. The patient is on anticoagulation secondary to atrial fibrillation. The right nasal passage was packed with a Rhino Rocket. Upon reevaluation the bleeding has stopped. Patient's labs shows a hemoglobin of 10.3 which has decreased from her previous visit but does not require any transfusion. She has a platelet count of 118 but this is similar with previous visits and she has chronic thrombocytopenia. The patient does have renal insufficiency but she has a history of chronic kidney disease and appears to be improved from previous visits. Her INR is at 2.55. The patient was seen in the emergency department by her mender hand, Dr Puri, although he was here for a different patient. He spoke to me about this patient however and says that the patient should hold her Coumadin until the issues with epistaxis is completed that she does not need to come to her appointment with him tomorrow and instead should see otolaryngology. The patient was reevaluated multiple times for multiple hours in the has been no return of her bleeding but the nasal packing remains in. Vital signs stable throughout her ED course. Patient placed on antibiotics for the nasal packing and given multiple referrals for otolaryngology. She will return to the ER with any worsening of her symptoms or any acute distress. Critical Care Time: No Critical care attestation.: If time is entered above; I have spent that time in minutes in the direct care of this critically ill patient, excluding procedure time. ED Disposition Clinical Impression: Epistaxis, Anticoagulated on warfarin CKD (chronic kidney disease) Qualifiers: Chronic kidney disease stage: unspecified stage Qualified Code(s): N18.9 - Chronic kidney disease, unspecified Disposition: DC-01 TO HOME OR SELFCARE Is pt being admited?: No Condition: Stable Instructions: Epistaxis (ED) Additional Instructions: Please follow up with a ear nose throat physician, ENT, in the next 1-2 days without fail. Return to the emergency Department with any return of your nasal bleeding or with any acute distress. I spoke with your mender hand, Dr. Puri, who says that you do not need to go to your cardiology appointment tomorrow and should instead work on getting in to see an ENT. Hold your Coumadin until the nasal bleeding issues have resolved. Take the antibiotics as prescribed. Prescriptions: Sulfamethoxazole/Trimethoprim [Bactrim DS TAB] 1 each PO BID #10 tablet Referrals: PRIMARY CARE, [Primary Care Provider] - 3-5 Days CITLALLI ESPINOSA MD [Staff Physician] - JAVAD HOFFMANN MD [Staff Physician] - JUAN ANTONIO HEBERT MD [Staff Physician] - CINTHIA Time of Disposition: 20:30
[2019-12-04 19:35] LABS: Basophils # (Auto) 0.1 K/mm3 (0.0-0.1); Basophils % (Auto) 0.8 % (0.0-1.8); Eosinophils # (Auto) 0.2 K/mm3 (0.0-0.4); Eosinophils % (Auto) 3.2 % (0.0-4.3); Hematocrit 29.7 % (30.3-42.9); Hemoglobin 10.3 gm/dl (10.1-14.3); Lymphocytes # (Auto) 1.8 K/mm3 (1.2-5.4); Lymphocytes % (Auto) 27.4 % (13.4-35.0); Mean Corpuscular HGB Conc 35 % (30-34); Mean Corpuscular Volume 112 fl (79-97); Monocytes # (Auto) 0.6 K/mm3 (0.0-0.8); Monocytes % (Auto) 9.1 % (0.0-7.3); Platelet Count 118 K/mm3 (140-440); Red Blood Count 2.66 M/mm3 (3.65-5.03); Red Cell Distribution Width 15.7 % (13.2-15.2)
[2019-12-04 19:44] LABS: INR 2.55 (0.87-1.13)
[2019-12-04 19:45] LABS: Partial Thromboplastin Time 34.9 Sec. (24.2-36.6)
[2019-12-04 19:53] LABS: Calcium 9.1 mg/dL (8.4-10.2)
[2019-12-04] MEDS ORDERED: SULFAMETHOXAZOLE/TRIMETHOPRIM 800/160MG DS TAB PO ONE (20:07)
[2019-12-04 21:07] VITALS: BP 130/79
== END 2019-12-04 21:11 | disposition home or self-care (01) ==
LOC: ED 16:26
DX: R04.0 Epistaxis (principal); I13.0 Hypertensive heart and chronic kidney disease with heart failure and stage 1 through stage 4 chronic kidney disease, or unspecified chronic kidney disease; N18.9 Chronic kidney disease, unspecified; I50.9 Heart failure, unspecified; M19.90 Unspecified osteoarthritis, unspecified site; Z90.49 Acquired absence of other specified parts of digestive tract; Z98.890 Other specified postprocedural states; Z79.01 Long term (current) use of anticoagulants; Z79.899 Other long term (current) drug therapy
CPT/HCPCS: 36415; 80048; 85025; 85610; 85730

== ENCOUNTER 2021-02-21 21:02 | Emergency (ER) | payer MEDICARE ==
--- NOTE | 2021-02-21 21:15 | Emergency Department Report ---
ED Lower Extremity HPI - General Chief Complaint: Fall Stated Complaint: LEFT HIP PAIN/FALL Time Seen by Provider: 02/21/21 21:08 Source: patient Mode of arrival: Stretcher Limitations: Physical Limitation - History of Present Illness Initial Comments: Patient is an 85-year-old female who presents emergency room with complaints of right hip pain and a fall. Patient states he is walking from the ER with a walker and she slipped and fell onto her left hip and then hit the back of her head. Patient states she is currently on Coumadin she has a lot of bruising. Patient states her hip pain is 10 out of 10. Patient states she is having difficulty walking because of the fall. Patient denies headache at this time. Patient states she did not lose consciousness. Patient denies recent travel. Patient denies recent international travel. Patient denies exposure to the novel coronavirus. Patient denies sick contacts. Patient denies fever and chills. Patient denies cough. Patient denies diarrhea. Patient denies coming in contact with anybody with symptoms of the novel coronavirus. MD Complaint: hip injury -: Sudden Injury: Hip: Left Type of Injury: blunt Place: home Severity: severe Severity scale (0 -10): 10 Improves With: rest Worsens With: movement, palpation Context: fall Associated Symptoms: able to partially bear weight - Related Data Previous Rx's Medication Instructions Recorded Last Taken Type Cholecalciferol (Vitamin D3) 2,000 unit PO DAILY #60 capsule 04/22/18 Unknown Rx [Vitamin D3] Levothyroxine Sodium [Synthroid] 112 mcg PO QDAY #30 tablet 04/22/18 Unknown Rx [place]-3/Dha/Epa/Fish Oil [Fish Oil 1 each PO DAILY #30 capsule 04/22/18 Unknown Rx 1,000 mg Softgel] Saccharomyces Boulardii [Florastor] 250 mg PO DAILY #30 capsule 08/26/18 Unknown Rx HYDROcodone/APAP 10-325 [[place] 1 - 2 each PO TID PRN #14 tablet 05/20/19 Unknown Rx 10-325 mg TAB] Warfarin [Coumadin] 2.5 mg PO QPM #30 tablet 05/20/19 Unknown Rx HYDROcodone/APAP 5-325 [[place] 1 each PO Q6HR PRN #14 tablet 07/13/19 Unknown Rx 5-325 mg TAB] Ondansetron [Zofran ODT TAB] 4 mg PO Q8HR PRN #14 tab.rapdis 07/13/19 Unknown Rx Aspirin EC [Halfprin EC] 81 mg PO QDAY #30 tablet 11/18/19 Unknown Rx Bumetanide [Bumex 1 mg tab] 1 mg PO BID #60 tab 11/18/19 Unknown Rx Cholecalciferol Vit D3 [Vitamin D3 2,000 unit PO DAILY #30 tablet 11/18/19 Unknown Rx 1,000 UNIT TAB] Cyanocobalamin [Vitamin B-12] 1,000 mcg PO DAILY #30 tablet 11/18/19 Unknown Rx Famotidine [Pepcid] 10 mg PO BID #30 tablet 11/18/19 Unknown Rx Metoprolol [Lopressor TAB] 50 mg PO BID #60 tablet 11/18/19 Unknown Rx [place]-3 Fatty Acids/Fish Oil [Fish 1,000 mg PO QDAY #30 capsule 11/18/19 Unknown Rx Oil] metOLazone [Zaroxolyn] 2.5 mg PO DAILY@0600 #30 tablet 11/18/19 Unknown Rx Sulfamethoxazole/Trimethoprim 1 each PO BID #10 tablet 12/04/19 Unknown Rx [Bactrim DS TAB] Allergies Allergy/AdvReac Type Severity Reaction Status Date / Time No Known Allergies Allergy Unverified 06/17/17 14:54 ED Review of Systems ROS: Stated complaint: LEFT HIP PAIN/FALL Other details as noted in HPI Constitutional: denies: chills, fever Eyes: denies: eye pain, eye discharge, vision change ENT: denies: ear pain, throat pain Respiratory: denies: cough, shortness of breath, wheezing Cardiovascular: denies: chest pain, palpitations Endocrine: no symptoms reported Gastrointestinal: denies: abdominal pain, nausea, diarrhea Genitourinary: denies: urgency, dysuria, discharge Musculoskeletal: denies: back pain, joint swelling, arthralgia Skin: denies: rash, lesions Neurological: denies: headache, weakness, paresthesias Psychiatric: denies: anxiety, depression Hematological/Lymphatic: denies: easy bleeding, easy bruising ED Past Medical Hx - Past Medical History Previous Medical History?: Yes Hx Hypertension: Yes Hx Heart Attack/AMI: Yes (stent x 5) Hx Congestive Heart Failure: Yes Hx Pulmonary Embolism: Yes Hx Arthritis: Yes Additional medical history: AFIB. CAD - Surgical History Past Surgical History?: Yes Hx Coronary Stent: Yes Hx Cholecystectomy: Yes Hx Breast Surgery: Yes (lumpectomy) Additional Surgical History: cataracts. tonsillectomy. knee surgeries. 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 "spinal stenosis surgery" - Family History Family history: no significant - Social History Smoking Status: Never Smoker Substance Use Type: None - Medications Home Medications: Home Medications Medication Instructions Recorded Confirmed Last Taken Type Cholecalciferol (Vitamin D3) 2,000 unit PO DAILY #60 capsule 04/22/18 11/16/19 Unknown Rx [Vitamin D3] Levothyroxine Sodium [Synthroid] 112 mcg PO QDAY #30 tablet 04/22/18 11/16/19 Unknown Rx [place]-3/Dha/Epa/Fish Oil [Fish Oil 1 each PO DAILY #30 capsule 04/22/18 11/16/19 Unknown Rx 1,000 mg Softgel] Saccharomyces Boulardii [Florastor] 250 mg PO DAILY #30 capsule 08/26/18 11/16/19 Unknown Rx HYDROcodone/APAP 10-325 [[place] 1 - 2 each PO TID PRN #14 tablet 05/20/19 11/16/19 Unknown Rx 10-325 mg TAB] Warfarin [Coumadin] 2.5 mg PO QPM #30 tablet 05/20/19 11/16/19 Unknown Rx HYDROcodone/APAP 5-325 [[place] 1 each PO Q6HR PRN #14 tablet 07/13/19 11/16/19 Unknown Rx 5-325 mg TAB] Ondansetron [Zofran ODT TAB] 4 mg PO Q8HR PRN #14 tab.rapdis 07/13/19 11/16/19 Unknown Rx Aspirin EC [Halfprin EC] 81 mg PO QDAY #30 tablet 11/18/19 Unknown Rx Bumetanide [Bumex 1 mg tab] 1 mg PO BID #60 tab 11/18/19 Unknown Rx Cholecalciferol Vit D3 [Vitamin D3 2,000 unit PO DAILY #30 tablet 11/18/19 Unknown Rx 1,000 UNIT TAB] Cyanocobalamin [Vitamin B-12] 1,000 mcg PO DAILY #30 tablet 11/18/19 Unknown Rx Famotidine [Pepcid] 10 mg PO BID #30 tablet 11/18/19 Unknown Rx Metoprolol [Lopressor TAB] 50 mg PO BID #60 tablet 11/18/19 Unknown Rx [place]-3 Fatty Acids/Fish Oil [Fish 1,000 mg PO QDAY #30 capsule 11/18/19 Unknown Rx Oil] metOLazone [Zaroxolyn] 2.5 mg PO DAILY@0600 #30 tablet 11/18/19 Unknown Rx Sulfamethoxazole/Trimethoprim 1 each PO BID #10 tablet 12/04/19 Unknown Rx [Bactrim DS TAB] ED Physical Exam - General General appearance: alert, in no apparent distress - Head Head exam: Present: atraumatic, normocephalic - Eye Eye exam: Present: normal appearance - ENT ENT exam: Present: mucous membranes moist - Neck Neck exam: Present: normal inspection - Respiratory Respiratory exam: Present: normal lung sounds bilaterally. Absent: respiratory distress - Cardiovascular Cardiovascular Exam: Present: regular rate, normal rhythm. Absent: systolic murmur, diastolic murmur, rubs, gallop - GI/Abdominal GI/Abdominal exam: Present: soft, normal bowel sounds. Absent: distended, tenderness, guarding - Rectal Rectal exam: Present: deferred - Extremities Exam Extremities exam: Present: normal inspection, tenderness (Left hip tenderness to palpation) - Back Exam Back exam: Present: normal inspection - Neurological Exam Neurological exam: Present: alert, oriented X3 - Psychiatric Psychiatric exam: Present: normal affect, normal mood - Skin Skin exam: Present: warm, dry, intact, normal color. Absent: rash ED Course Vital Signs 02/21/21 02/22/21 02/22/21 21:15 01:30 02:00 Temperature 98.7 F Pulse Rate 85 Respiratory 18 18 18 Rate Blood Pressure 122/79 O2 Sat by Pulse 97 Oximetry 02/22/21 03:10 Temperature Pulse Rate Respiratory 18 Rate Blood Pressure O2 Sat by Pulse Oximetry - Reevaluation(s) Reevaluation #1: Patient will be given another dose of Dilaudid. Patient complaining of severe pain. 02/22/21 01:10 Reevaluation #2: I discussed all results and clinical findings with patient. I discussed plan of care with patient. Patient agrees with plan of care and transfer. Patient is s table for transfer. Patient will be transferred via EMS to [facility]. 02/22/21 02:41 - Consultations Consultation #1: I discussed case with orthopedist and he states that he is not on Ortho coverage and this hospital does not have Ortho coverage at this time. 02/22/21 02:25 Consultation #2: I discussed case with [facility], Dr. Frye has accepted the patient be transferred ER to ER to [place]. 02/22/21 02:40 ED Lower Extremity MDM - Lab Data Result diagrams: 02/21/21 22:01 02/21/21 22:01 - Radiology Data Radiology results: report reviewed CT OF THE ABDOMEN AND PELVIS WITHOUT CONTRAST INDICATION / CLINICAL INFORMATION: Fall with abdominal tenderness, pelvic pain and hip pain. TECHNIQUE: All CT scans at this location are performed using CT dose reduction for ALARA by means of automated exposure control. COMPARISON: 08/22/18. FINDINGS: ABDOMEN: The liver has a cirrhotic contour without focal lesion. The spleen measures 11 cm in length. No varices are identified and there is no evidence of ascites. The gallbladder is not identified. The bile ducts, pancreas, adrenal glands, kidneys and bowel demonstrate no significant abnormality. There are severe atherosclerotic calcifications involving aorta and its branches without aneurysm. The lung bases are clear. PELVIS: The distal ureters and urinary bladder are normal. The uterus and ovaries are not identified. A normal appendix is present. There are scattered sigmoid diverticula without acute inflammation. No abnormal mass or fluid collection is seen. I do not identify a hernia. There is an acute mildly displaced fracture of the left femoral neck. Moderate spondylosis is noted. IMPRESSION: 1. Acute fracture of the left femoral neck. 2. No evidence of major organ injury. 3. Findings characteristic of hepatic cirrhosis. Head CT is negative for acute findings. I reviewed the report. - Medical Decision Making Patient is an 85-year-old female that presents emergency room for a fall. Patient's fall with standing. Patient fell on landed on her left hip and then hit the back of her head. Patient had a CT scan to rule out intracranial process of bleeding because the patient is on anticoagulation. Patient's head CT was negative. Patient's hip CT showed a femoral neck fracture. Patient transferred to [facility] since this hospital does not have orthopedic coverage at this time. Patient transferred via ground EMS. Patient had labs which were essentially unremarkable except for chronic kidney disease. Critical care time documented due to the multiple reassessments, prolonged time at the bedside, interpretation of diagnostics and labs and discussion with receiving hospital and consultants.. - Differential Diagnosis Strain, sprain, contusion, fracture, pelvic pain, hip pain Critical Care Time: Yes Critical care time in (mins) excluding proc time.: 35 Critical care attestation.: If time is entered above; I have spent that time in minutes in the direct care of this critically ill patient, excluding procedure time. Critical Care Time: 35 minutes ED Disposition Clinical Impression: Left hip pain, Pelvic pain, On anticoagulant therapy Head injury Qualifiers: Encounter type: initial encounter Qualified Code(s): S09.90XA - Unspecified injury of head, initial encounter Fall Qualifiers: Encounter type: initial encounter Qualified Code(s): W19.XXXA - Unspecified fall, initial encounter Femur fracture, left Qualifiers: Encounter type: initial encounter Femur location: base of neck Fracture type: closed Fracture alignment: displaced Qualified Code(s): S72.042A - Displaced fr acture of base of neck of left femur, initial encounter for closed fracture Chronic kidney disease, stage III (moderate) Qualifiers: Chronic kidney disease stage 3 subtype: unspecified whether 3a or 3b Qualified Code(s): N18.30 - Chronic kidney disease, stage 3 unspecified Disposition: DC/TX-70 ANOTHER TYPE HLTHCARE Is pt being admited?: No Does the pt Need Aspirin: No Condition: Critical Time of Disposition: 02:42
[2021-02-21 22:22] LABS: Hematocrit 33.5 % (30.3-42.9); Hemoglobin 11.3 gm/dl (10.1-14.3); Mean Corpuscular HGB Conc 34 % (30-34); Red Blood Count 2.92 M/mm3 (3.65-5.03); Red Cell Distribution Width 14.7 % (13.2-15.2)
[2021-02-21 22:23] LABS: Mean Corpuscular Volume 115 fl (79-97); Platelet Count 89 K/mm3 (140-440)
[2021-02-21 22:31] LABS: INR 2.91 (0.87-1.13)
[2021-02-21 22:44] LABS: Albumin 3.8 g/dL (3.9-5)
[2021-02-21] MEDS ORDERED: HYDROmorphone 1 MG/1 ML INJ IV ONE (22:52)
[2021-02-21] MEDS ORDERED: ONDANSETRON 4 MG/2 ML INJ ONE (23:04)
[2021-02-21] MEDS ORDERED: ONDANSETRON 4 MG/2 ML INJ IV ONE (23:10)
[2021-02-22] MEDS ORDERED: HYDROmorphone 1 MG/1 ML INJ IM ONE ×2 (01:16→06:28)
[2021-02-22] MEDS: HYDROmorphone 1 MG/1 ML INJ IV ONE ×2 (01:20→03:10)
--- NOTE | 2021-02-22 01:51 | Cat Scan Report ---
CT OF THE ABDOMEN AND PELVIS WITHOUT CONTRAST INDICATION / CLINICAL INFORMATION: Fall with abdominal tenderness, pelvic pain and hip pain. TECHNIQUE: All CT scans at this location are performed using CT dose reduction for ALARA by means of automated exposure control. COMPARISON: 08/22/18. FINDINGS: ABDOMEN: The liver has a cirrhotic contour without focal lesion. The spleen measures 11 cm in length. No varices are identified and there is no evidence of ascites. The gallbladder is not identified. Th e bile ducts, pancreas, adrenal glands, kidneys and bowel demonstrate no significant abnormality. There are severe atherosclerotic calcifications involving aorta and its branches without aneurysm. Th e lung bases are clear. PELVIS: The distal ureters and urinary bladder are normal. The uterus and ovaries are not identified. A normal appendix is present. There are scattered sigmoid diverticula without acute inflammation. No abnormal mass or fluid collection is seen. I do not identify a hernia. There is an acute mildly displaced fracture of the left femoral neck. Moderate spondylosis is noted. IMPRESSION: 1. Acute fracture of the left femoral neck. 2. No evidence of major organ injury. 3. Findings characteristic of hepatic cirrhosis. Signer Name: Dustin Bellamy MD Signed: 02/22/2021 1:47 AM Workstation Name: [id number]
[2021-02-22] MEDS ORDERED: ETOMIDATE 20 MG/10 ML INJ IV ONE (04:39)
[2021-02-22] MEDS ORDERED: ROCURONIUM 50 MG/5 ML INJ IV ONE (04:40)
[2021-02-22 06:35] VITALS: BP 129/70
--- NOTE | 2021-02-22 12:30 | Cat Scan Report ---
CT head/brain wo con INDICATION / CLINICAL INFORMATION: 85 years Female; fall. head injury. on anticoag. TECHNIQUE: Routine CT head without contrast. All CT scans at this location are performed using CT dos e reduction for ALARA by means of automated exposure control. COMPARISON: 07/12/2019 FINDINGS: BRAIN / INTRACRANIAL CONTENTS: No acute hemorrhage, mass effect, midline shift, hydrocephalus, or acu te, large territorial infarct. Mild, diffuse cerebral atrophy. There are mild areas of decreased attenuation in the white matter of the cerebral hemispheres. These are nonspecific findings and may be related to microangiopathy (hypertension, diabetes, atheroscleros is), given the patient's age. CRANIOCERVICAL JUNCTION: No significant abnormality. ORBITS: No significant abnormality of visualized orbits. SINUSES / MASTOIDS: Moderate mucosal thickening and desiccated secretions seen in the left maxillary antrum. ADDITIONAL FINDINGS: Atherosclerotic disease is seen in the anterior and posterior circulation. 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 IMPRESSION: 1. No focal mass, hemorrhage, hydrocephalus, or acute, large territorial infarct. Signer Name: Brayan Rosenbaum MD, III Signed: 02/21/2021 9:42 PM Workstation Name: [email or web address] [email or web address], Inc.[email or web address]
== END 2021-02-22 07:55 | disposition other institution (70) ==
LOC: ED 21:02
DX: S72.002A Fracture of unspecified part of neck of left femur, initial encounter for closed fracture (principal); S09.90XA Unspecified injury of head, initial encounter; I13.0 Hypertensive heart and chronic kidney disease with heart failure and stage 1 through stage 4 chronic kidney disease, or unspecified chronic kidney disease; N18.30 Chronic kidney disease, stage 3 unspecified; I50.9 Heart failure, unspecified; R10.2 Pelvic and perineal pain; M25.552 Pain in left hip; I25.2 Old myocardial infarction; M19.91 Primary osteoarthritis, unspecified site; Z90.49 Acquired absence of other specified parts of digestive tract; Z98.890 Other specified postprocedural states; Z90.89 Acquired absence of other organs; Z79.01 Long term (current) use of anticoagulants; Z79.899 Other long term (current) drug therapy; W19.XXXA Unspecified fall, initial encounter; Y93.89 Activity, other specified; Y92.89 Other specified places as the place of occurrence of the external cause; Y99.8 Other external cause status
CPT/HCPCS: 36415; 70450; 74176; 80053; 85027; 85610; 96372; 96374; 96375; 99285; J1170; J2405

== ENCOUNTER 2021-09-02 13:38 | Inpatient (IN) | payer MEDICARE ==
--- NOTE | 2021-09-02 16:02 | XRay Report ---
CHEST 1 VIEW INDICATION: Weakness. COMPARISON: 11/15/2019 FINDINGS: Support devices: None. Heart: Stable mild cardiomegaly. Lungs/Pleura: Stable mild pulmonary venous congestion. No infiltrate, pleural fluid or pneumothorax. Additional findings: None. IMPRESSION: Mild cardiomegaly and pulmonary venous congestion but no CHF. Signer Name: Louis Noguera Jr, MD Signed: 09/02/2021 3:58 PM Workstation Name: [id number]
--- NOTE | 2021-09-02 16:41 | Emergency Department Report ---
ED General Adult HPI - General Chief complaint: Weakness Stated complaint: WEAKNESS,AMS PUI?: No Time Seen by Provider: 09/02/21 16:11 Source: patient, family, EMS ( EMS documentation not available at time of chart dictation ), RN notes reviewed, old records reviewed Mode of arrival: Stretcher Limitations: Altered Mental Status, Physical Limitation - History of Present Illness Initial comments: Patient is an 86-year-old female. Her past medical history includes urinary tract infection, LV dysfunction, coronary artery disease, heart failure, hypertension, pulmonary embolism, chronic renal insufficiency, and atrial fibrillation. She is brought to the hospital by her daughter and EMS with a complaint of weakness and altered mental status. As per her daughter "I think she has a urinary tract infection." History obtained from daughter as the patient is weak and altered. Last known well time is yesterday sometime, daughter cannot give me a specific last known well time. She states that at baseline, the patient is typically awake, alert, conversant, and able to care for her own activities of daily living. She reports the patient is lethargic and listless today, with a subjective fever, malaise, weakness and fatigue. As far she knows, the patient has not fallen, nor has she had nausea, vomiting, diarrhea, or cough. Daughter endorses that the patient is furthermore COVID-19 vaccinated. The patient herself is not able to describe the qualitative nature of symptoms, exacerbating factors, relieving factors or aggravating factors. -: unknown - Related Data Previous Rx's Medication Instructions Recorded Last Taken Type Cholecalciferol (Vitamin D3) 2,000 unit PO DAILY #60 capsule 04/22/18 Unknown Rx [Vitamin D3] Levothyroxine Sodium [Synthroid] 112 mcg PO QDAY #30 tablet 04/22/18 Unknown Rx [place]-3/Dha/Epa/Fish Oil [Fish Oil 1 each PO DAILY #30 capsule 04/22/18 Unknown Rx 1,000 mg Softgel] Saccharomyces Boulardii [Florastor] 250 mg PO DAILY #30 capsule 08/26/18 Unknown Rx HYDROcodone/APAP 10-325 [[place] 1 - 2 each PO TID PRN #14 tablet 05/20/19 Unknown Rx 10-325 mg TAB] Warfarin [Coumadin] 2.5 mg PO QPM #30 tablet 05/20/19 Unknown Rx HYDROcodone/APAP 5-325 [[place] 1 each PO Q6HR PRN #14 tablet 07/13/19 Unknown Rx 5-325 mg TAB] Ondansetron [Zofran ODT TAB] 4 mg PO Q8HR PRN #14 tab.rapdis 07/13/19 Unknown Rx Aspirin EC [Halfprin EC] 81 mg PO QDAY #30 tablet 11/18/19 Unknown Rx Bumetanide [Bumex 1 mg tab] 1 mg PO BID #60 tab 11/18/19 Unknown Rx Cholecalciferol Vit D3 [Vitamin D3 2,000 unit PO DAILY #30 tablet 11/18/19 Unknown Rx 1,000 UNIT TAB] Cyanocobalamin [Vitamin B-12] 1,000 mcg PO DAILY #30 tablet 11/18/19 Unknown Rx Famotidine [Pepcid] 10 mg PO BID #30 tablet 11/18/19 Unknown Rx Metoprolol [Lopressor TAB] 50 mg PO BID #60 tablet 11/18/19 Unknown Rx [place]-3 Fatty Acids/Fish Oil [Fish 1,000 mg PO QDAY #30 capsule 11/18/19 Unknown Rx Oil] metOLazone [Zaroxolyn] 2.5 mg PO DAILY@0600 #30 tablet 11/18/19 Unknown Rx Sulfamethoxazole/Trimethoprim 1 each PO BID #10 tablet 12/04/19 Unknown Rx [Bactrim DS TAB] Allergies Allergy/AdvReac Type Severity Reaction Status Date / Time No Known Allergies Allergy Unverified 06/17/17 14:54 ED Review of Systems ROS: Stated complaint: WEAKNESS,AMS Other details as noted in HPI Comment: Unobtainable due to pts medical conditions (Review of systems as per daughter) Constitutional: fever, malaise, weakness Cardiovascular: denies: syncope Gastrointestinal: denies: nausea, vomiting, diarrhea Neurological: weakness, confusion ED Past Medical Hx - Past Medical History Hx Hypertension: Yes Hx Heart Attack/AMI: Yes (stent x 5) Hx Congestive Heart Failure: Yes Hx Pulmonary Embolism: Yes Hx Arthritis: Yes Additional medical history: AFIB. CAD - Surgical History Hx Coronary Stent: Yes Hx Cholecystectomy: Yes Hx Breast Surgery: Yes (lumpectomy) Additional Surgical History: cataracts. tonsillectomy. knee surgeries. 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 "spinal stenosis surgery" - Social History Smoking Status: Never Smoker Substance Use Type: None - Medications Home Medications: Home Medications Medication Instructions Recorded Confirmed Last Taken Type Cholecalciferol (Vitamin D3) 2,000 unit PO DAILY #60 capsule 04/22/18 11/16/19 Unknown Rx [Vitamin D3] Levothyroxine Sodium [Synthroid] 112 mcg PO QDAY #30 tablet 04/22/18 11/16/19 Unknown Rx [place]-3/Dha/Epa/Fish Oil [Fish Oil 1 each PO DAILY #30 capsule 04/22/18 11/16/19 Unknown Rx 1,000 mg Softgel] Saccharomyces Boulardii [Florastor] 250 mg PO DAILY #30 capsule 08/26/18 11/16/19 Unknown Rx HYDROcodone/APAP 10-325 [[place] 1 - 2 each PO TID PRN #14 tablet 05/20/19 11/16/19 Unknown Rx 10-325 mg TAB] Warfarin [Coumadin] 2.5 mg PO QPM #30 tablet 05/20/19 11/16/19 Unknown Rx HYDROcodone/APAP 5-325 [[place] 1 each PO Q6HR PRN #14 tablet 07/13/19 11/16/19 Unknown Rx 5-325 mg TAB] Ondansetron [Zofran ODT TAB] 4 mg PO Q8HR PRN #14 tab.rapdis 07/13/19 11/16/19 Unknown Rx Aspirin EC [Halfprin EC] 81 mg PO QDAY #30 tablet 11/18/19 Unknown Rx Bumetanide [Bumex 1 mg tab] 1 mg PO BID #60 tab 11/18/19 Unknown Rx Cholecalciferol Vit D3 [Vitamin D3 2,000 unit PO DAILY #30 tablet 11/18/19 Unknown Rx 1,000 UNIT TAB] Cyanocobalamin [Vitamin B-12] 1,000 mcg PO DAILY #30 tablet 11/18/19 Unknown Rx Famotidine [Pepcid] 10 mg PO BID #30 tablet 11/18/19 Unknown Rx Metoprolol [Lopressor TAB] 50 mg PO BID #60 tablet 11/18/19 Unknown Rx [place]-3 Fatty Acids/Fish Oil [Fish 1,000 mg PO QDAY #30 capsule 11/18/19 Unknown Rx Oil] metOLazone [Zaroxolyn] 2.5 mg PO DAILY@0600 #30 tablet 11/18/19 Unknown Rx Sulfamethoxazole/Trimethoprim 1 each PO BID #10 tablet 12/04/19 Unknown Rx [Bactrim DS TAB] ED Physical Exam - General Limitations: Altered Mental Status, Physical Limitation General appearance: other (The patient is listless but arousable) - Head Head exam: Present: atraumatic, normocephalic - Eye Eye exam: Present: normal appearance - ENT ENT exam: Present: normal exam, normal orophraynx, mucous membranes moist, normal external ear exam - Neck Neck exam: Present: normal inspection, full ROM. Absent: tenderness, meningismus - Respiratory Respiratory exam: Present: rales. Absent: respiratory distress, rhonchi, stridor - Cardiovascular Cardiovascular Exam: Present: bradycardia, irregular rhythm, normal heart sounds. Absent: systolic murmur, diastolic murmur, rubs, gallop - GI/Abdominal GI/Abdominal exam: Present: soft. Absent: distended, tenderness, guarding, rebound, rigid, pulsatile mass - Rectal Rectal exam: Present: normal inspection, other (Chaperoned by nurse Padma Tan). Absent: black stool, bloody stool - Extremities Exam Extremities exam: Present: normal inspection, full ROM, pedal edema (3+ edema in the bilateral lower extremity), other (2+ pulses noted in the bilateral upper and lower extremities. There is no palpable cord. negative Homans sign. Musc ular compartments are soft. The pelvis is stable.). Absent: calf tenderness - Back Exam Back exam: Present: normal inspection. Absent: tenderness, CVA tenderness (R), CVA tenderness (L), paraspinal tenderness, vertebral tenderness - Neurological Exam Neurological exam: Present: altered (The patient is sleepy but arousable. The patient was 4 extremities spontaneously. There is no facial droop.) - Psychiatric Psychiatric exam: Present: flat affect - Skin Skin exam: Present: warm, dry, intact, normal color. Absent: rash ED Course Vital Signs 09/02/21 09/02/21 09/02/21 17:17 17:44 17:46 Temperature 100.9 F H Pulse Rate 66 Respiratory 26 H 19 Rate Blood Pressure 119/38 Blood Pressure [Left] O2 Sat by Pulse 93 99 Oximetry 09/02/21 20:26 Temperature 99 F Pulse Rate 62 Respiratory 24 Rate Blood Pressure Blood Pressure 103/46 [Left] O2 Sat by Pulse 95 Oximetry - Reevaluation(s) Reevaluation #1: 09/02/21 17:37 Differential diagnosis, include but not limited to: Bacteremia, viremia, pneumonia, urinary tract infection, chronic renal insufficiency, type II troponin leak, electrolyte derangement, congestive heart failure Assessment and plan: 86-year-old female with fever, altered mental status, evidence of congestive heart failure, manifest by lower extremity edema, pulmonary vascular congestion, volume overload, probable type II troponin leak, with hypomagnesemia, urinalysis pending. This is most likely a UTI. Patient meets criteria for admission hospitalization. Start ceftriaxone, acetaminophen, provide supportive care, hold IV fluids as this patient appears to be volume overloaded, admit patient to the medical service for supportive care. Discussed this plan of care with the daughter. She is agreeable to the plan of care. 09/02/21 18:21 Patient resting comfortably in stretcher. Awaiting urinalysis. Awaiting serum toxicology studies. Have discussed with patient's daughter. All questions answered. 09/02/21 18:[address] scan of the brain negative for acute findings. Lactic acidosis reviewed and appreciated. Hospital physician, Dr. Kinsey, to admit patient to the medical service. Patient will be given Lasix, and 250 cc of normal saline. Given evidence of fluid overload, 30 cc/kg bolus of IV fluid contraindicated. I will defer further fluid management to the inpatient receiving team. I have also reminded nursing team to perform straight catheterization for urinalysis acquisition. ED Medical Decision Making - Lab Data Result diagrams: 09/02/21 16:08 09/02/21 16:08 Vital Signs 09/02/21 17:17 Temperature 100.9 F H Lab Results 09/02/21 09/02/21 09/02/21 Range/Units 16:08 16:08 16:08 WBC 15.1 H (4.5-11.0) K/mm3 RBC 2.92 L (3.65-5.03) M/mm3 Hgb 10.6 (10.1-14.3) gm/dl Hct 33.2 (30.3-42.9) % MCV 114 H (79-97) fl MCH 36 H (28-32) pg MCHC 32 (30-34) % RDW 16.7 H (13.2-15.2) % Plt Count 156 (140-440) K/mm3 Lymph % (Auto) 7.0 L (13.4-35.0) % M[place]ulloch % (Auto) 5.4 (0.0-7.3) % Eos % (Auto) 0.0 (0.0-4.3) % Baso % (Auto) 0.5 (0.0-1.8) % Lymph # (Auto) 1.0 L (1.2-5.4) K/mm3 [place]och # (Auto) 0.8 (0.0-0.8) K/mm3 Eos # (Auto) 0.0 (0.0-0.4) K/mm3 Baso # (Auto) 0.1 (0.0-0.1) K/mm3 Seg Neutrophils % 87.1 H (40.0-70.0) % Seg Neutrophils # 13.1 H (1.8-7.7) K/mm3 PT 23.4 H (12.2-14.9) Sec. INR 1.89 H (0.87-1.13) Sodium 138 (137-145) mmol/L Potassium 4.7 (3.6-5.0) mmol/L Chloride 97.0 L (98-107) mmol/L Carbon Dioxide 24 (22-30) mmol/L Anion Gap 22 mmol/L BUN 35 H (7-17) mg/dL Creatinine 1.8 H (0.6-1.2) mg/dL Estimated GFR 27 ml/min BUN/Creatinine Ratio 19 % Glucose 90 (65-100) mg/dL Calcium 8.8 (8.4-10.2) mg/dL Phosphorus 4.20 (2.5-4.5) mg/dL Magnesium 1.60 L (1.7-2.3) mg/dL Total Bilirubin 2.30 H (0.1-1.2) mg/dL AST 49 H (5-40) units/L ALT 10 (7-56) units/L Alkaline Phosphatase 55 (35-129) units/L Total Creatine Kinase 111 (30-135) units/L Troponin T 0.323 H* (0.00-0.029) ng/mL Total Protein 7.4 (6.3-8.2) g/dL Albumin 3.5 L (3.9-5) g/dL Albumin/Globulin Ratio 0.9 % - EKG Data -: EKG Interpreted by Me - EKG Data 09/02/21 17:39 The EKG is interpreted at 16: 03 Atrial fibrillation, rate 53 bpm. Left axis deviation. Low voltage. Poor R wave progression. Abnormal EKG. Not a STEMI. QTc 412 ms. Appears unchanged from prior EKG from October 2019. - Radiology Data Radiology results: pending, report reviewed, image reviewed interpreted by me: non CT scan of the brain negative for acute findings CHEST 1 VIEW INDICATION: Weakness. COMPARISON: 11/15/2019 FINDINGS: Support devices: None. Heart: Stable mild cardiomegaly. Lungs/Pleura: Stable mild pulmonary venous congestion. No infiltrate, pleural fluid or pneumothorax. Additional findings: None. IMPRESSION: Mild cardiomegaly and pulmonary venous congestion but no CHF. Signer Name: Louis Noguera Jr, MD Signed: 09/02/2021 2:58 PM Workstation Name: [id number] CT HEAD WITHOUT CONTRAST INDICATION / CLINICAL INFORMATION: ams. TECHNIQUE: All CT scans at this location are performed using CT dose reduction for ALARA by means of automated exposure control. COMPARISON: Head CT 02/21/2021 FINDINGS: HEMORRHAGE: No evidence of intracranial hemorrhage or extra-axial fluid collection. EXTRA-AXIAL SPACES: Cortical sulci and sylvian fissures are within normal limits for the patient's age of 86 years. Basilar cisterns have an unremarkable appearance. VENTRICULAR SYSTEM: The third and lateral ventricles are normal in size and configuration. CEREBRAL PARENCHYMA: Minimal periventric ular and deep white matter lucency is observed. This is probably secondary to mild microvascular ischemic change. There is no indication of recent infarction. No areas of encephalomalacia are identified. MIDLINE SHIFT OR HERNIATION: There is no mass effect. CEREBELLUM / BRAINSTEM: Brainstem has an unremarkable appearance. Age related cerebellar atrophy is noted. MIDLINE STRUCTURES:Pituitary gland has an unremarkable appearance. No abnormalities are seen in the pineal region. INTRACRANIAL VESSELS:Calcified atherosclerotic plaque is present along the course of the cavernous segments of both internal carotid arteries. Similar findings are seen at the distal vertebral arteries. ORBITS: Status post bilateral cataract surgery. No additional abnormality. SOFT TISSUES of HEAD: No significant abnormality. CALVARIUM: Evaluation of bone windows reveals no abnormalities. PARANASAL SINUSES / MASTOID AIR CELLS: Paranasal sinuses are free from inflammatory mucosal disease. Mastoid air cells are sanjeev lly pneumatized. ADDITIONAL FINDINGS: None. IMPRESSION: 1. No significant abnormality on head CT without contrast. No interval change. Signer Name: Hernandez Eli MD Signed: 09/02/2021 5:04 PM Workstation Name: [id number] CT ABDOMEN AND PELVIS WITHOUT CONTRAST INDICATION / CLINICAL INFORMATION: Altered mental status and sepsis. TECHNIQUE: Axial CT images were obtained through the abdomen and pelvis without IV contrast. All CT scans at this location are performed using CT dose reduction for ALARA by means of automated exposure control. COMPARISON: CT 02/22/2021 FINDINGS: LOWER CHEST: Bilateral small pleural effusions. Interlobular septal thickening. Coronary artery atherosclerosis. LIVER: Liver has cirrhotic morphology. GALLBLADDER: Not seen BILE DUCTS: No significant abnormality. PANCREAS: No significant abnormality. SPLEEN: Fatty atrophy of pancreas. ADRENALS: No significant abnormality. RIGHT KIDNEY / URETER: No significant abnormality. LEFT KIDNEY / URETER: No significant abnormality. STOMACH / SMALL BOWEL: Small hiatal hernia. Small bowel is nondilated. COLON: Diverticulosis without acute inflammation. APPENDIX: Not visualized. PERITONEUM: No free fluid. No free air. No fluid collection. LYMPH NODES: No significant adenopathy. AORTA / ARTERIES: Prominent bilateral i liac chain lymph nodes are nonspecific. For example there is a right external iliac chain lymph node with short axis of 0.9 cm on series 2 image 129. IVC / VEINS: No significant abnormality. URINARY BLADDER: Mild thickening of urinary bladder wall and mild stranding around wall. REPRODUCTIVE ORGANS: Uterus is absent. No significant adnexal abnormality. ADDITIONAL FINDINGS: None. SKELETAL SYSTEM: Left total hip arthroplasty. Diffuse osteopenia. Multilevel degenerative changes of the spine. No aggressive osseous lesion. IMPRESSION: 1. Mild thickening of urinary bladder with mild stranding can be seen with cystitis. Recommend clinical correlation. 2. Liver cirrhosis. 3. Bilateral small pleural effusions and interlobular septal thickening consistent with pulmonary edema. 4. Mildly prominent iliac chain lymph nodes are nonspecific. 5. Additional incidental findings as above. Signer Name: Carroll Arriaga MD Signed: 09/02/2021 8:50 PM Workstation Name: [id number] Critical care attestation.: If time is entered above; I have spent that time in minutes in the direct care of this critically ill patient, excluding procedure time. ED Disposition Clinical Impression: Acute encephalopathy, Renal insufficiency, CHF exacerbation, Chronic atrial fibrillation, Hypomagnesemia, Systemic inflammatory response syndrome (SIRS) Disposition: 09 ADMITTED INPATIENT Is pt being admited?: Yes Does the pt Need Aspirin: No Condition: Fair
[2021-09-02 16:48] LABS: Basophils # (Auto) 0.1 K/mm3 (0.0-0.1); Basophils % (Auto) 0.5 % (0.0-1.8); Hematocrit 33.2 % (30.3-42.9); Hemoglobin 10.6 gm/dl (10.1-14.3); Mean Corpuscular HGB Conc 32 % (30-34); Mean Corpuscular Volume 114 fl (79-97); Monocytes # (Auto) 0.8 K/mm3 (0.0-0.8); Monocytes % (Auto) 5.4 % (0.0-7.3); Platelet Count 156 K/mm3 (140-440); Red Blood Count 2.92 M/mm3 (3.65-5.03); Red Cell Distribution Width 16.7 % (13.2-15.2)
[2021-09-02 16:59] LABS: INR 1.89 (0.87-1.13)
[2021-09-02 17:12] LABS: Albumin 3.5 g/dL (3.9-5); Calcium 8.8 mg/dL (8.4-10.2)
[2021-09-02] MEDS ORDERED: cefTRIAXone/NS 1 GM/50 ML 1 GM/50 ML BAG IV ONE (17:31)
[2021-09-02] MEDS ORDERED: MAGNESIUM SULFATE 2 GM/50 ML BAG IV ONE (17:40)
[2021-09-02 17:47] LABS: Chol/HDL Ratio 2.06 %
--- NOTE | 2021-09-02 18:08 | Cat Scan Report ---
CT HEAD WITHOUT CONTRAST INDICATION / CLINICAL INFORMATION: ams. TECHNIQUE: All CT scans at this location are performed using CT dose reduction for ALARA by means of automated e xposure control. COMPARISON: Head CT 02/21/2021 FINDINGS: HEMORRHAGE: No evidence of intracranial hemorrhage or extra-axial fluid collection. EXTRA-AXIAL SPACES: Cortical sulci and sylvian fissures are within normal limits for the patient's ag e of 86 years. Basilar cisterns have an unremarkable appearance. VENTRICULAR SYSTEM: The third and lateral ventricles are normal in size and configuration. CEREBRAL PARENCHYMA: Minimal periventricular and deep white matter lucency is observed. This is proba jorge secondary to mild microvascular ischemic change. There is no indication of recent infarction. No areas of encephalomalacia are identified. MIDLINE SHIFT OR HERNIATION: There is no mass effect. CEREBELLUM / BRAINSTEM: Brainstem has an unremarkable appearance. Age related cerebellar atrophy is n oted. MIDLINE STRUCTURES:Pituitary gland has an unremarkable appearance. No abnormalities are seen in the p ineal region. INTRACRANIAL VESSELS:Calcified atherosclerotic plaque is present along the course of the cavernous se gments of both internal carotid arteries. Similar findings are seen at the distal vertebral arteries. ORBITS: Status post bilateral cataract surgery. No additional abnormality. SOFT TISSUES of HEAD: No significant abnormality. CALVARIUM: Evaluation of bone windows reveals no abnormalities. PARANASAL SINUSES / MASTOID AIR CELLS: Paranasal sinuses are free from inflammatory mucosal disease. Mastoid air cells are normally pneumatized. ADDITIONAL FINDINGS: None. IMPRESSION: 1. No significant abnormality on head CT without contrast. No interval change. Signer Name: Hernandez Eli MD Signed: 09/02/2021 6:04 PM Workstation Name: [id number]
[2021-09-02] MEDS ORDERED: ACETAMINOPHEN 325 MG TAB PO ONE (18:49)
--- NOTE | 2021-09-02 18:49 | History and Physical Report ---
History of Present Illness History of present illness: 86 YO Female with HTN, RI, CAD S/P stent placement, CHF, PE, OA, Atrial fibrillation on therapeutic anticoagulation, Vascular Dementia, Cerebral Atherosclerosis presents to ED for evaluation. The patient is confused and lethargic with diminished cognition at the time my evaluation is unable to provide history. Patient history taken from EMS staff, ED staff, told patient daughter who was at bedside during exam and interview. As per daughter the patient has experienced increased confusion, diminished oral intake and generalized weakness. EMS was notified and upon arrival the patient was found to be in distress and subsequent transported to [facility] for further care and evaluation of the aforementioned symptoms. Patient seen and evaluated in the emergency department. All lab and imaging studies reviewed. Patient found to have urinary tract infection complicated by sepsis, acute kidney injury, and toxic metabolic encephalopathy. Patient mated to medical floor and initiated on sepsis protocol. No reports of fever, chills, chest pain, palpitation, productive cough, skin rash, recent contact, or known exposure to COVID-19. Prior admission on 11/15/2019 reviewed. All medication listed at time of admission has been reconciled. Advanced care planning conducted in ED. Past History Past Medical History: acute RI, arthritis, CAD, heart failure, hypertension, pulmonary embolism, other (See HPI) Past Surgical History: cholecystectomy (cataracts. tonsillectomy. Cardiac stent placement, knee surgeries. 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 "spinal stenosis surgery"), tonsillectomy Social history: . denies: smoking, alcohol abuse, prescription drug abuse Family history: diabetes, hypertension Medications and Allergies Allergies Allergy/AdvReac Type Severity Reaction Status Date / Time No Known Allergies Allergy Unverified 06/17/17 14:54 Home Medications Medication Instructions Recorded Confirmed Last Taken Type Cholecalciferol (Vitamin D3) 2,000 unit PO DAILY #60 capsule 04/22/18 11/16/19 Unknown Rx [Vitamin D3] Levothyroxine Sodium [Synthroid] 112 mcg PO QDAY #30 tablet 04/22/18 11/16/19 Unknown Rx [place]-3/Dha/Epa/Fish Oil [Fish Oil 1 each PO DAILY #30 capsule 04/22/18 11/16/19 Unknown Rx 1,000 mg Softgel] Saccharomyces Boulardii [Florastor] 250 mg PO DAILY #30 capsule 08/26/18 11/16/19 Unknown Rx HYDROcodone/APAP 10-325 [[place] 1 - 2 each PO TID PRN #14 tablet 05/20/19 11/16/19 Unknown Rx 10-325 mg TAB] Warfarin [Coumadin] 2.5 mg PO QPM #30 tablet 05/20/19 11/16/19 Unknown Rx HYDROcodone/APAP 5-325 [[place] 1 each PO Q6HR PRN #14 tablet 07/13/19 11/16/19 Unknown Rx 5-325 mg TAB] Ondansetron [Zofran ODT TAB] 4 mg PO Q8HR PRN #14 tab.rapdis 07/13/19 11/16/19 Unknown Rx Aspirin EC [Halfprin EC] 81 mg PO QDAY #30 tablet 11/18/19 Unknown Rx Bumetanide [Bumex 1 mg tab] 1 mg PO BID #60 tab 11/18/19 Unknown Rx Cholecalciferol Vit D3 [Vitamin D3 2,000 unit PO DAILY #30 tablet 11/18/19 Unk nown Rx 1,000 UNIT TAB] Cyanocobalamin [Vitamin B-12] 1,000 mcg PO DAILY #30 tablet 11/18/19 Unknown Rx Famotidine [Pepcid] 10 mg PO BID #30 tablet 11/18/19 Unknown Rx Metoprolol [Lopressor TAB] 50 mg PO BID #60 tablet 11/18/19 Unknown Rx [place]-3 Fatty Acids/Fish Oil [Fish 1,000 mg PO QDAY #30 capsule 11/18/19 Unknown Rx Oil] metOLazone [Zaroxolyn] 2.5 mg PO DAILY@0600 #30 tablet 11/18/19 Unknown Rx Sulfamethoxazole/Trimethoprim 1 each PO BID #10 tablet 12/04/19 Unknown Rx [Bactrim DS TAB] Review of Systems ROS unobtainable: due to mental status Exam - Constitutional Vitals: Temp Pulse Resp BP Pulse Ox 100.9 F H 66 19 119/38 99 09/02/21 17:17 09/02/21 17:46 09/02/21 17:46 09/02/21 17:46 09/02/21 17:46 General appearance: Present: mild distress, obese - EENT Eyes: Present: PERRL ENT: hearing intact, clear oral mucosa - Neck Neck: Present: supple, normal ROM - Respiratory Respiratory effort: normal Respiratory: bilateral: CTA - Cardiovascular Heart Sounds: Present: S1 & S2. Absent: rub, click - Extremities Extremities: pulses symmetrical, No edema Peripheral Pulses: abnormal (Capillary refill greater than 3.5 seconds) - Abdominal General gastrointestinal: Present: soft, non-tender, non-distended, normal bowel sounds Female genitourinary: Present: normal - Integumentary Integumentary: Present: clear, warm, dry - Musculoskeletal Musculoskeletal: generalized weakness - Psychiatric Psychiatric: appropriate mood/affect, intact judgment & insight - Neurologic Neurologic: CNII-XII intact, moves all extremities HEART Score - HEART Score Troponin: Troponin T 0.323 ng/mL (0.00-0.029) H* 09/02/21 16:08 Results - Labs CBC & Chem 7: 09/02/21 16:08 09/02/21 16:08 Labs: Abnormal lab results 09/02/21 09/02/21 09/02/21 Range/Units 16:08 16:08 16:08 WBC 15.1 H (4.5-11.0) K/mm3 RBC 2.92 L (3.65-5.03) M/mm3 MCV 114 H (79-97) fl MCH 36 H (28-32) pg RDW 16.7 H (13.2-15.2) % Lymph % (Auto) 7.0 L (13.4-35.0) % Lymph # (Auto) 1.0 L (1.2-5.4) K/mm3 Seg Neutrophils % 87.1 H (40.0-70.0) % Seg Neutrophils # 13.1 H (1.8-7.7) K/mm3 PT 23.4 H (12.2-14.9) Sec. INR 1.89 H (0.87-1.13) Chloride 97.0 L (98-107) mmol/L BUN 35 H (7-17) mg/dL Creatinine 1.8 H (0.6-1.2) mg/dL Lactic Acid (0.7-2.0) mmol/L Magnesium 1.60 L (1.7-2.3) mg/dL Total Bilirubin 2.30 H (0.1-1.2) mg/dL AST 49 H (5-40) units/L Troponin T 0.323 H* (0.00-0.029) ng/mL Albumin 3.5 L (3.9-5) g/dL LDL Cholesterol Direct 42 L (50-130) mg/dL Salicylates (2.8-20.0) mg/dL Acetaminophen (10.0-30.0) ug/mL 09/02/21 09/02/21 09/02/21 Range/Units 17:41 17:41 17:41 WBC (4.5-11.0) K/mm3 RBC (3.65-5.03) M/mm3 MCV (79-97) fl MCH (28-32) pg RDW (13.2-15.2) % Lymph % (Auto) (13.4-35.0) % Lymph # (Auto) (1.2-5.4) K/mm3 Seg Neutrophils % (40.0-70.0) % Seg Neutrophils # (1.8-7.7) K/mm3 PT (12.2-14.9) Sec. INR (0.87-1.13) Chloride (98-107) mmol/L BUN (7-17) mg/dL Creatinine (0.6-1.2) mg/dL Lactic Acid 4.10 H* (0.7-2.0) mmol/L Magnesium (1.7-2.3) mg/dL Total Bilirubin (0.1-1.2) mg/dL AST (5-40) units/L Troponin T (0.00-0.029) ng/mL Albumin (3.9-5) g/dL LDL Cholesterol Direct (50-130) mg/dL Salicylates < 0.3 L (2.8-20.0) mg/dL Acetaminophen 5.0 L (10.0-30.0) ug/mL Assessment and Plan - Patient Problems (1) Sepsis Current Visit: Yes Status: Acute Plan to address problem: Sepsis protocol: CBC, CMP, chest x-ray, urinalysis, IV antibiotic therapy, IV fluid resuscitation therapy, supplemental oxygen, pulse oximetry, maintain mean arterial pressure greater than or equal to 65, serial lactic acid level, blood culture. (2) UTI (urinary tract infection) Current Visit: Yes Status: Acute Qualifiers: Encounter type: initial encounter Plan to address problem: Urinalysis, IV antibiotic therapy, CBC, supportive care. (3) Acidosis Current Visit: Yes Status: Acute Plan to address problem: IV fluid resuscitation therapy, serial lactic acid level, supportive care. (4) Acute kidney injury (JONAS) with acute tubular necrosis (ATN) Current Visit: Yes Status: Acute Plan to address problem: IV fluid resuscitation therapy, monitor urine output every shift, BMP, repeat BMP in a.m. (5) Toxic metabolic encephalopathy Current Visit: Yes Status: Acute Plan to address problem: Treat sepsis, IV fluid resuscitation therapy, (6) Atrial fibrillation Current Visit: Yes Status: Acute Qualifiers: Atrial fibrillation type: longstanding persistent Qualified Code(s): I48.11 - Longstanding persistent atrial fibrillation Plan to address problem: Rate currently controlled, continue therapeutic anticoagulation. Outpatient primary care physician follow-up for risk factor discussion. (7) Vascular dementia Current Visit: Yes Status: Acute Qualifiers: Dementia behavioral disturbance: without behavioral disturbance Qualified Code(s): F01.50 - Vascular dementia without behavioral disturbance Plan to address problem: Verbal prompting, verbal redirection, benzodiazepine therapy as clinically indicated. (8) Cerebral atherosclerosis Current Visit: Yes Status: Acute Plan to address problem: Verbal prompting, verbal redirection, supportive care, risk factor reduction. (9) DVT prophylaxis Current Visit: Yes Status: Acute Plan to address problem: SCDs bilateral lower extremities while in bed, continue therapeutic anticoagulation (10) Advance care planning Current Visit: Yes Status: Acute Plan to address problem: Disease education done, care plan discussed, diagnoses discussed, prognosis discussed, patient is full code, patient daughter knowledges understanding and agreement with care plan, +30 minutes.
[2021-09-02] MEDS ORDERED: HYDROmorphone 1 MG/1 ML INJ IV PRN ×2 (18:51)
[2021-09-02] MEDS ORDERED: SODIUM CHLORIDE 0.9% 1000 ML IV SOLN IV ONE (18:51)
[2021-09-02] MEDS ORDERED: ACETAMINOPHEN 325 MG TAB PO PRN (18:51)
[2021-09-02] MEDS ORDERED: ONDANSETRON 4 MG/2 ML INJ IV PRN (18:51)
[2021-09-02] MEDS ORDERED: SODIUM CHLORIDE 0.9% 250ML 250 ML IV ONE (18:51)
[2021-09-02] MEDS ORDERED: FUROSEMIDE 20 MG/2 ML INJ IV ONE (18:51)
[2021-09-02] MEDS ORDERED: ALBUTEROL 2.5 MG/3 ML NEBU IH PRN (18:51)
[2021-09-02 20:15] LABS: Bilirubin,Urine NEG (Negative); Blood,Urine NEG (Negative); Color,Urine Yellow (Yellow); Hyaline Casts,Urine 2 /LPF; Mucus,Urine FEW /HPF; Protein,Urine <15 mg/dL mg/dL (Negative)
[2021-09-02] MEDS: cefTRIAXone/NS 1 GM/50 ML 1 GM/50 ML BAG IV SCH (20:51)
--- NOTE | 2021-09-02 21:54 | Cat Scan Report ---
CT ABDOMEN AND PELVIS WITHOUT CONTRAST INDICATION / CLINICAL INFORMATION: Altered mental status and sepsis. TECHNIQUE: Axial CT images were obtained through the abdomen and pelvis without IV contrast. All CT scans at this location are performed using CT dose reduction for ALARA by means of automated exposure control. COMPARISON: CT 02/22/2021 FINDINGS: LOWER CHEST: Bilateral small pleural effusions. Interlobular septal thickening. Coronary artery ather osclerosis. LIVER: Liver has cirrhotic morphology. GALLBLADDER: Not seen BILE DUCTS: No significant abnormality. PANCREAS: No significant abnormality. SPLEEN: Fatty atrophy of pancreas. ADRENALS: No significant abnormality. RIGHT KIDNEY / URETER: No significant abnormality. LEFT KIDNEY / URETER: No significant abnormality. STOMACH / SMALL BOWEL: Small hiatal hernia. Small bowel is nondilated. COLON: Diverticulosis without acute inflammation. APPENDIX: Not visualized. PERITONEUM: No free fluid. No free air. No fluid collection. LYMPH NODES: No significant adenopathy. AORTA / ARTERIES: Prominent bilateral iliac chain lymph nodes are nonspecific. For example there is a right external iliac chain lymph node with short axis of 0.9 cm on series 2 image 129. IVC / VEINS: No significant abnormality. URINARY BLADDER: Mild thickening of urinary bladder wall and mild stranding around wall. REPRODUCTIVE ORGANS: Uterus is absent. No significant adnexal abnormality. ADDITIONAL FINDINGS: None. SKELETAL SYSTEM: Left total hip arthroplasty. Diffuse osteopenia. Multilevel degenerative changes of the spine. No aggressive osseous lesion. IMPRESSION: 1. Mild thickening of urinary bladder with mild stranding can be seen with cystitis. Recommend clinic al correlation. 2. Liver cirrhosis. 3. Bilateral small pleural effusions and interlobular septal thickening consistent with pulmonary doretha ma. 4. Mildly prominent iliac chain lymph nodes are nonspecific. 5. Additional incidental findings as above. Signer Name: Carroll Arriaga MD Signed: 09/02/2021 9:50 PM Workstation Name: [id number]
[2021-09-03 06:06] LABS: Basophils % (Auto) 0.3 % (0.0-1.8); Hematocrit 27.6 % (30.3-42.9); Hemoglobin 8.8 gm/dl (10.1-14.3); Lymphocytes % (Auto) 7.4 % (13.4-35.0); Mean Corpuscular HGB Conc 32 % (30-34); Mean Corpuscular Volume 114 fl (79-97); Monocytes # (Auto) 0.9 K/mm3 (0.0-0.8); Monocytes % (Auto) 6.6 % (0.0-7.3); Platelet Count 138 K/mm3 (140-440); Red Blood Count 2.42 M/mm3 (3.65-5.03); Red Cell Distribution Width 16.9 % (13.2-15.2)
[2021-09-03 06:20] LABS: Calcium 8.2 mg/dL (8.4-10.2)
--- NOTE | 2021-09-03 11:21 | Electrocardiograph Report ---
[facility] Test Date: 2021-09-02 Test Time: 16:00:08 Pat Name: VIVIANE INGRAM Department: Room: [place] [address] Gender: F Litigation Assistant: ANETTE : [id number] Requested By: FARRUKH SIFUENTES Order Number: [id number] Reading MD: Jahaira Menjivar Measurements Intervals [place] Rate: 53 P: IN: QRS: -52 QRSD: 101 T: 150 QT: 439 QTc: 412 Interpretive Statements Atrial fibrillation Left axis deviation Low voltage, extremity and precordial leads Consider old anterior infarct No previous ECG available for comparison Electronically Signed On 09-03-2021 11:21:01 EST by Jahaira Menjivar
--- NOTE | 2021-09-03 16:04 | Progress Note ---
Assessment and Plan - Patient Problems (1) Sepsis Current Visit: Yes Status: Acute Plan to address problem: Sepsis protocol: CBC, CMP, chest x-ray, urinalysis, IV antibiotic therapy, IV fluid resuscitation therapy, supplemental oxygen, pulse oximetry, maintain mean arterial pressure greater than or equal to 65, serial lactic acid level, blood culture. (2) UTI (urinary tract infection) Current Visit: Yes Status: Acute Qualifiers: Encounter type: initial encounter Plan to address problem: Urinalysis, IV antibiotic therapy, CBC, supportive care. (3) Acidosis Current Visit: Yes Status: Acute Plan to address problem: IV fluid resuscitation therapy, serial lactic acid level, supportive care. (4) Acute kidney injury (JONAS) with acute tubular necrosis (ATN) Current Visit: Yes Status: Acute Plan to address problem: IV fluid resuscitation therapy, monitor urine output every shift, BMP, repeat BMP in a.m. (5) Toxic metabolic encephalopathy Current Visit: Yes Status: Acute Plan to address problem: Patient mental status improved. Patient denies pain. (6) Atrial fibrillation Current Visit: Yes Status: Acute Qualifiers: Atrial fibrillation type: longstanding persistent Qualified Code(s): I48.11 - Longstanding persistent atrial fibrillation Plan to address problem: Rate currently controlled, continue therapeutic anticoagulation. Outpatient primary care physician follow-up for risk factor discussion. (7) Vascular dementia Current Visit: Yes Status: Acute Qualifiers: Dementia behavioral disturbance: without behavioral disturbance Qualified Code(s): F01.50 - Vascular dementia without behavioral disturbance Plan to address problem: Verbal prompting, verbal redirection, benzodiazepine therapy as clinically indicated. (8) Cerebral atherosclerosis Current Visit: Yes Status: Acute Plan to address problem: Verbal prompting, verbal redirection, supportive care, risk factor reduction. (9) DVT prophylaxis Current Visit: Yes Status: Acute Plan to address problem: SCDs bilateral lower extremities while in bed, continue therapeutic anticoagulation (10) Advance care planning Current Visit: Yes Status: Acute Plan to address problem: Disease education done, care plan discussed, diagnoses discussed, prognosis discussed, patient is full code, patient acknowledges understanding and agreement with care plan, +30 minutes. History Interval history: 86 YO Female HD #2 with UTI complicated by sepsis, JONAS with ATN, toxic metabolic encephalopathy. Patient more alert this a.m. Patient reports "I feel better". Patient denies pain. No reported nursing events. Leukocytosis improved. Hospitalist Physical - Constitutional Vitals: Temp Pulse Resp BP Pulse Ox 98.3 F 95 H 24 101/50 100 09/03/21 15:02 09/03/21 15:02 09/03/21 15:02 09/03/21 15:02 09/03/21 15:02 General appearance: Present: mild distress, obese - EENT Eyes: Present: PERRL, EOM intact - Neck Neck: Present: supple - Respiratory Respiratory effort: normal Respiratory: bilateral: CTA - Cardiovascular Rhythm: irregularly irregular Heart Sounds: Present: S1 & S2 - Extremities Extremities: no ischemia, abnormal (Generalized weakness) Peripheral Pulses: within normal limits - Abdominal General gastrointestinal: soft, non-tender, non-distended - Integumentary Integumentary: Present: warm, dry, clammy - Psychiatric Psychiatric: cooperative - Neurologic Neurologic: CNII-XII intact, no focal deficits, moves all extremities, no gait normal HEART Score - HEART Score Troponin: Troponin T 0.323 ng/mL (0.00-0.029) H* 09/02/21 16:08 Results - Labs CBC & Chem 7: 09/03/21 05:44 09/03/21 05:44 Labs: Laboratory Last Values WBC 12.9 K/mm3 (4.5-11.0) H 09/03/21 05:44 RBC 2.42 M/mm3 (3.65-5.03) L 09/03/21 05:44 Hgb 8.8 gm/dl (10.1-14.3) L 09/03/21 05:44 Hct 27.6 % (30.3-42.9) L 09/03/21 05:44 MCV 114 fl (79-97) H 09/03/21 05:44 MCH 36 pg (28-32) H 09/03/21 05:44 MCHC 32 % (30-34) 09/03/21 05:44 RDW 16.9 % (13.2-15.2) H 09/03/21 05:44 Plt Count 138 K/mm3 (140-440) L 09/03/21 05:44 Lymph % (Auto) 7.4 % (13.4-35.0) L 09/03/21 05:44 [place] % (Auto) 6.6 % (0.0-7.3) 09/03/21 05:44 Eos % (Auto) 0.0 % (0.0-4.3) 09/03/21 05:44 Baso % (Auto) 0.3 % (0.0-1.8) 09/03/21 05:44 Lymph # (Auto) 1.0 K/mm3 (1.2-5.4) L 09/03/21 05:44 [place] # (Auto) 0.9 K/mm3 (0.0-0.8) H 09/03/21 05:44 Eos # (Auto) 0.0 K/mm3 (0.0-0.4) 09/03/21 05:44 Baso # (Auto) 0.0 K/mm3 (0.0-0.1) 09/03/21 05:44 Seg Neutrophils % 85.7 % (40.0-70.0) H 09/03/21 05:44 Seg Neutrophils # 11.1 K/mm3 (1.8-7.7) H 09/03/21 05:44 PT 23.4 Sec. (12.2-14.9) H 09/02/21 16:08 INR 1.89 (0.87-1.13) H 09/02/21 16:08 Sodium 142 mmol/L (137-145) 09/03/21 05:44 Potassium 3.2 mmol/L (3.6-5.0) L D 09/03/21 05:44 Chloride 99.8 mmol/L (98-107) 09/03/21 05:44 Carbon Dioxide 24 mmol/L (22-30) 09/03/21 05:44 Anion Gap 21 mmol/L 09/03/21 05:44 BUN 38 mg/dL (7-17) H 09/03/21 05:44 Creatinine 2.1 mg/dL (0.6-1.2) H 09/03/21 05:44 Estimated GFR 22 ml/min 09/03/21 05:44 BUN/Creatinine Ratio 18 % 09/03/21 05:44 Glucose 79 mg/dL (65-100) 09/03/21 05:44 Lactic Acid 1.70 mmol/L (0.7-2.0) 09/03/21 05:44 Calcium 8.2 mg/dL (8.4-10.2) L 09/03/21 05:44 Phosphorus 4.20 mg/dL (2.5-4.5) 09/02/21 16:08 Magnesium 1.60 mg/dL (1.7-2.3) L 09/02/21 16:08 Total Bilirubin 2.30 mg/dL (0.1-1.2) H 09/02/21 16:08 AST 49 units/L (5-40) H 09/02/21 16:08 ALT 10 units/L (7-56) 09/02/21 16:08 Alkaline Phosphatase 55 units/L (35-129) 09/02/21 16:08 Total Creatine Kinase 111 units/L (30-135) 09/02/21 16:08 Troponin T 0.323 ng/mL (0.00-0.029) H* 09/02/21 16:08 Total Protein 7.4 g/dL (6.3-8.2) 09/02/21 16:08 Albumin 3.5 g/dL (3.9-5) L 09/02/21 16:08 Albumin/Globulin Ratio 0.9 % 09/02/21 16:08 Triglycerides 83 mg/dL (2-149) 09/02/21 16:08 Cholesterol 93 mg/dL (50-199) 09/02/21 16:08 LDL Cholesterol Direct 42 mg/dL (50-130) L 09/02/21 16:08 HDL Cholesterol 45 mg/dL (40-59) 09/02/21 16:08 Cholesterol/HDL Ratio 2.06 % 09/02/21 16:08 TSH 1.870 mlU/mL (0.270-4.200) 09/02/21 17:41 Urine Color Yellow (Yellow) 09/02/21 19:12 Urine Turbidity Clear (Clear) 09/02/21 19:12 Urine pH 5.0 (5.0-7.0) 09/02/21 19:12 Ur Specific [place] 1.013 (1.003-1.030) 09/02/21 19:12 Urine Protein <15 mg/dl mg/dL (Negative) 09/02/21 19:12 Urine Glucose (UA) Neg mg/dL (Negative) 09/02/21 19:12 Urine Ketones Neg mg/dL (Negative) 09/02/21 19:12 Urine Blood Neg (Negative) 09/02/21 19:12 Urine Nitrite Neg (Negative) 09/02/21 19:12 Urine Bilirubin Neg (Negative) 09/02/21 19:12 Urine Urobilinogen 4.0 mg/dL (<2.0) 09/02/21 19:12 Ur Leukocyte Esterase Neg (Negative) 09/02/21 19:12 Urine WBC (Auto) 2.0 /HPF (0.0-6.0) 09/02/21 19:12 Urine RBC (Auto) 2.0 /HPF (0.0-6.0) 09/02/21 19:12 U Epithel Cells (Auto) 2.0 /HPF (0-13.0) 09/02/21 19:12 Hyaline Casts 2 /LPF 09/02/21 19:12 Urine Mucus Few /HPF 09/02/21 19:12 Salicylates < 0.3 mg/dL (2.8-20.0) L 09/02/21 17:41 Acetaminophen 5.0 ug/mL (10.0-30.0) L 09/02/21 17:41 Blood Type AB POSITIVE 09/02/21 20:15 Antibody Screen Negative 09/02/21 20:15 Microbiology: Microbiology 09/02/21 17:41 Peripheral/Venous Blood Culture - Preliminary Culture in Progress 09/02/21 17:41 Peripheral/Venous Blood Culture - Preliminary Culture in Progress Active Medications - Current Medications Current Medications: Generic Name Dose Route Start Last Admin Trade Name Freq PRN Reason Stop Dose Admin Acetaminophen 650 mg 09/02/21 18:51 Acetaminophen 325 Mg Tab PO Q6H PRN Pain, Mild (1-3) Albuterol 2.5 mg 09/02/21 18:51 Albuterol 2.5 Mg/3 Ml Nebu IH Q4HRT PRN Shortness Of Breath Hydromorphone HCl 0.25 mg 09/02/21 18:51 Hydromorphone 1 Mg/1 Ml Inj IV Q4H PRN Pain, Moderate (4-6) Hydromorphone HCl 0.5 mg 09/02/21 18:51 Hydromorphone 1 Mg/1 Ml Inj IV Q23H PRN Pain , Severe (7-10) Ceftriaxone Sodium 1 gm in 50 mls @ 100 mls/hr 09/02/21 19:00 09/02/21 20:51 Rocephin/Ns 1 Gm/50 Ml IV 09/04/21 19:29 100 mls/hr Q24H ALEKS Administration Protocol Sodium Chloride 1,000 mls @ 75 mls/hr 09/03/21 11:00 Nacl 0.9% 1000 Ml IV DIRECT ALEKS Ondansetron HCl 4 mg 09/02/21 18:51 Ondansetron 4 Mg/2 Ml Inj IV Q8H PRN Nausea And Vomiting Oxycodone/Acetaminophen 1 tab 09/02/21 18:51 Oxycodone /Acetaminophen 5-325mg Tab PO Q16H PRN Pain, Moderate (4-6) Sodium Chloride 10 ml 09/02/21 22:00 09/03/21 10:15 Sodium Chloride 0.9% 10 Ml Flush Syringe IV Not Given BID ALEKS Sodium Chloride 10 ml 09/02/21 18:51 Sodium Chloride 0.9% 10 Ml Flush Syringe IV PRN PRN LINE FLUSH
[2021-09-03] MEDS: oxyCODONE /ACETAMINOPHEN 5-325MG TAB PO PRN (21:15)
[2021-09-03] MEDS: cefTRIAXone/NS 1 GM/50 ML 1 GM/50 ML BAG IV SCH (21:18)
[2021-09-03] MEDS: SODIUM CHLORIDE 0.9% 1000 ML 1,000 ML IV SCH (21:27)
[2021-09-04] MEDS: oxyCODONE /ACETAMINOPHEN 5-325MG TAB PO PRN ×2 (04:29→20:31)
--- NOTE | 2021-09-04 10:55 | Consultation ---
History of Present Illness - Reason for Consult acute renal failure - History of Present Illness Very pleasant 86-year-old female with a past medical history of chronic kidney disease stage IIIb/borderline stage IV well-known to our outpatient office as he is seen by my colleague , presented to the emergency department secondary to confusion and altered mental status in the setting of a urinary tract infection. Nephrology consulted for JONAS on CKD. This morning patient is doing better in regards to her mentation. She is speaking clearly and remembers me from previous hospital visit. Started on appropriate IV antibiotic therapy along with gentle IV fluid hydration given her history of combined systolic and diastolic heart failure. She is currently on room air and not expressing any respiratory complaints. Past History Past Medical History: acute NM, arthritis, CAD, heart failure, hypertension, pulmonary embolism, other (See HPI) Past Surgical History: cholecystectomy (cataracts. tonsillectomy. Cardiac s tent placement, knee surgeries. 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 "spinal stenosis surgery"), tonsillectomy Social history: . denies: smoking, alcohol abuse, prescription drug abuse Family history: diabetes, hypertension Medications and Allergies Allergies Allergy/AdvReac Type Severity Reaction Status Date / Time No Known Allergies Allergy Unverified 06/17/17 14:54 Home Medications Medication Instructions Recorded Confirmed Last Taken Type Cholecalciferol (Vitamin D3) 2,000 unit PO DAILY #60 capsule 04/22/18 09/04/21 09/03/21 Rx [Vitamin D3] Levothyroxine Sodium [Synthroid] 112 mcg PO QDAY #30 tablet 04/22/18 09/04/21 09/03/21 Rx Wisner-3/Dha/Epa/Fish Oil [Fish Oil 1 each PO DAILY #30 capsule 04/22/18 09/04/21 09/03/21 Rx 1,000 mg Softgel] Saccharomyces Boulardii [Florastor] 250 mg PO DAILY #30 capsule 08/26/18 09/04/21 09/03/21 Rx HYDROcodone/APAP 10-325 [Wever 1 - 2 each PO TID PRN #14 tablet 05/20/1908/1509/03/21 Rx 10-325 mg TAB] Warfarin [Coumadin] 2.5 mg PO QPM #30 tablet 05/20/19 09/04/21 09/03/21 Rx HYDROcodone/APAP 5-325 [Wever 1 each PO Q6HR PRN #14 tablet 07/13/19 09/04/21 09/03/21 Rx 5-325 mg TAB] Ondansetron [Zofran ODT TAB] 4 mg PO Q8HR PRN #14 tab.rapdis 07/13/19 09/04/21 09/03/21 Rx Aspirin EC [Halfprin EC] 81 mg PO QDAY #30 tablet 11/18/19 09/04/21 09/03/21 Rx Bumetanide [Bumex 1 mg tab] 1 mg PO BID #60 tab 11/18/19 09/04/21 09/04/21 00:49 Rx Cholecalciferol Vit D3 [Vitamin D3 2,000 unit PO DAILY #30 tablet 11/18/19 09/04/21 09/03/21 Rx 1,000 UNIT TAB] Cyanocobalamin [Vitamin B-12] 1,000 mcg PO DAILY #30 tablet 11/18/19 09/04/21 09/03/21 Rx Famotidine [Pepcid] 10 mg PO BID #30 tablet 11/18/19 09/04/21 09/03/21 Rx Metoprolol [Lopressor TAB] 50 mg PO BID #60 tablet 11/18/19 09/04/21 09/03/21 Rx Wisner-3 Fatty Acids/Fish Oil [Fish 1,000 mg PO QDAY #30 capsule 11/18/19 09/04/21 09/03/21 Rx Oil] metOLazone [Zaroxolyn] 2.5 mg PO DAILY@0600 #30 tablet 11/18/19 09/04/21 09/03/21 Rx Sulfamethoxazole/Trimethoprim 1 each PO BID #10 tablet 12/04/19 09/04/21 09/03/21 Rx [Bactrim DS TAB] Active Meds: Active Medications Acetaminophen (Acetaminophen 325 Mg Tab) 650 mg PO Q6H PRN PRN Reason: Pain, Mild (1-3) Albuterol (Albuterol 2.5 Mg/3 Ml Nebu) 2.5 mg IH Q4HRT PRN PRN Reason: Shortness Of Breath Hydromorphone HCl (Hydromorphone 1 Mg/1 Ml Inj) 0.25 mg IV Q4H PRN PRN Reason: Pain, Moderate (4-6) Hydromorphone HCl (Hydromorphone 1 Mg/1 Ml Inj) 0.5 mg IV Q23H PRN PRN Reason: Pain , Severe (7-10) Ceftriaxone Sodium (Rocephin/Ns 1 Gm/50 Ml) 1 gm in 50 mls @ 100 mls/hr IV Q24H ALEKS; Protocol Stop: 09/04/21 19:29 Last Infusion: 09/03/21 22:41 Dose: Infused Documented by: Sodium Chloride (Nacl 0.9% 1000 Ml) 1,000 mls @ 75 mls/hr IV DIRECT ALEKS Last Admin: 09/03/21 21:27 Dose: 75 mls/hr Documented by: Ondansetron HCl (Ondansetron 4 Mg/2 Ml Inj) 4 mg IV Q8H PRN PRN Reason: Nausea And Vomiting Oxycodone/Acetaminophen (Oxycodone /Acetaminophen 5-325mg Tab) 1 tab PO Q16H PRN PRN Reason: Pain, Moderate (4-6) Last Admin: 09/04/21 04:29 Dose: 1 tab Documented by: Sodium Chloride (Sodium Chloride 0.9% 10 Ml Flush Syringe) 10 ml IV BID [facility] Last Admin: 09/03/21 22:41 Dose: 10 ml Documented by: Sodium Chloride (Sodium Chloride 0.9% 10 Ml Flush Syringe) 10 ml IV PRN PRN PRN Reason: LINE FLUSH Review of Systems Constitutional: fatigue, weakness Exam - Vital Signs Vital signs: Vital Signs Temp 100.9 F H 09/02/21 17:17 - General Appearance General appearance: well-developed, appears stated age EENT: ATNC Neck: Present: neck supple Respiratory: Clear to Ascultation Heart: regular Gastrointestinal: Present: normal Integumentary: no rash, warm and dry Neurologic: no focal deficit, alert and oriented x3 Musculoskeletal: Present: deferred Psychiatric: cooperative Results - Lab Results 09/03/21 05:44 09/03/21 05:44 Most recent lab results Calcium 8.2 mg/dL (8.4-10.2) L 09/03/21 05:44 Phosphorus 4.20 mg/dL (2.5-4.5) 09/02/21 16:08 Magnesium 1.60 mg/dL (1.7-2.3) L 09/02/21 16:08 Assessment and Plan - Patient Problems (1) Acute kidney injury superimposed on CKD Current Visit: Yes Status: Acute Plan to address problem: Likely in the setting of prerenal injury, urinary tract infection. Agree with current regimen including gentle IV fluid hydration and IV antibiotics to be dosed appropriately for decreased renal function. We will follow up closely and monitor renal functions daily. Currently having issues with her IV line so she has not been able to get IV fluid resuscitation overnight. Pending IV team to help with new IV line insertion. (2) Acute encephalopathy Current Visit: Yes Status: Acute Plan to address problem: Mentation improvement noted after patient started on IV antibiotic therapy and treatment of urinary tract infection. Now her mentation is essentially back to her baseline. (3) Sepsis Current Visit: Yes Status: Acute Plan to address problem: In the setting of a urinary tract infection patient has been started on appr opriate IV antibiotic therapy along with gentle IV fluid hydration. Maintain mean arterial pressures above 65 mmHg. Will follow further recommendations from primary team. (4) UTI (urinary tract infection) Current Visit: Yes Status: Acute Qualifiers: Encounter type: initial encounter Plan to address problem: Please ensure that antibiotics are dosed appropriately for decreased renal function. (5) History of chronic congestive heart failure Current Visit: Yes Status: Chronic Plan to address problem: Currently she is on room air without any respiratory distress. Chest x-ray does not show any overt signs of fluid overload. We need to very carefully monitor her respiratory status once IV fluids are started.
[2021-09-04] MEDS: cefTRIAXone/NS 1 GM/50 ML 1 GM/50 ML BAG IV SCH (18:01)
[2021-09-04] MEDS: ACETAMINOPHEN 325 MG TAB PO PRN (19:06)
--- NOTE | 2021-09-04 19:13 | Progress Note ---
Assessment and Plan - Patient Problems (1) Sepsis Current Visit: Yes Status: Acute Plan to address problem: Sepsis protocol: Patient symptoms improving. We will continue IV antibiotic therapy, IV fluid resuscitation therapy, supplemental oxygen, pulse oximetry, maintain mean arterial pressure greater than or equal to 65, serial lactic acid level, blood culture. (2) UTI (urinary tract infection) Current Visit: Yes Status: Acute Qualifiers: Encounter type: initial encounter Plan to address problem: Urinalysis, IV antibiotic therapy, CBC, supportive care. (3) Acidosis Current Visit: Yes Status: Acute Plan to address problem: IV fluid resuscitation therapy, serial lactic acid level, supportive care. (4) Acute kidney injury (JONAS) with acute tubular necrosis (ATN) Current Visit: Yes Status: Acute Plan to address problem: IV fluid resuscitation therapy, monitor urine output every shift, BMP, repeat BMP in a.m. (5) Toxic metabolic encephalopathy Current Visit: Yes Status: Acute Plan to address problem: Patient mental status improved. Patient denies pain. (6) Atrial fibrillation Current Visit: Yes Status: Acute Qualifiers: Atrial fibrillation type: longstanding persistent Qualified Code(s): I48.11 - Longstanding persistent atrial fibrillation Plan to address problem: Rate currently controlled, continue therapeutic anticoagulation. Outpatient primary care physician follow-up for risk factor discussion. (7) Vascular dementia Current Visit: Yes Status: Acute Qualifiers: Dementia behavioral disturbance: without behavioral disturbance Qualified Code(s): F01.50 - Vascular dementia without behavioral disturbance Plan to address problem: Verbal prompting, verbal redirection, benzodiazepine therapy as clinically i ndicated. (8) Cerebral atherosclerosis Current Visit: Yes Status: Acute Plan to address problem: Verbal prompting, verbal redirection, supportive care, risk factor reduction. (9) DVT prophylaxis Current Visit: Yes Status: Acute Plan to address problem: SCDs bilateral lower extremities while in bed, continue therapeutic anticoagulation (10) Advance care planning Current Visit: Yes Status: Acute Plan to address problem: Disease education done, care plan discussed, diagnoses discussed, prognosis discussed, patient is full code, patient acknowledges understanding and agreement with care plan, +30 minutes. History Interval history: 86 YO Female HD #3 with UTI complicated by sepsis, JONAS with ATN, toxic metabolic encephalopathy. Patient is again more alert this a.m. Patient reports "I feel better again today". Patient denies pain. No reported nursing events. L eukocytosis improved. Hospitalist Physical - Constitutional Vitals: Temp Pulse Resp BP Pulse Ox 98.0 F 100 H 19 106/41 97 09/04/21 16:00 09/04/21 16:00 09/04/21 16:00 09/04/21 16:00 09/04/21 16:00 General appearance: Present: mild distress, obese - EENT Eyes: Present: PERRL, EOM intact - Neck Neck: Present: supple - Respiratory Respiratory effort: normal Respiratory: bilateral: CTA - Cardiovascular Rhythm: regular Heart Sounds: Present: S1 & S2 - Extremities Extremities: no ischemia Peripheral Pulses: within normal limits - Abdominal General gastrointestinal: soft, non-tender, non-distended - Integumentary Integumentary: Present: clear, erythema - Psychiatric Psychiatric: cooperative - Neurologic Neurologic: CNII-XII intact HEART Score - HEART Score Troponin: Troponin T 0.323 ng/mL (0.00-0.029) H* 09/02/21 16:08 Results - Labs CBC & Chem 7: 09/03/21 05:44 09/03/21 05:44 Labs: Laboratory Last Values WBC 12.9 K/mm3 (4.5-11.0) H 09/03/21 05:44 RBC 2.42 M/mm3 (3.65-5.03) L 09/03/21 05:44 Hgb 8.8 gm/dl (10.1-14.3) L 09/03/21 05:44 Hct 27.6 % (30.3-42.9) L 09/03/21 05:44 MCV 114 fl (79-97) H 09/03/21 05:44 MCH 36 pg (28-32) H 09/03/21 05:44 MCHC 32 % (30-34) 09/03/21 05:44 RDW 16.9 % (13.2-15.2) H 09/03/21 05:44 Plt Count 138 K/mm3 (140-440) L 09/03/21 05:44 Lymph % (Auto) 7.4 % (13.4-35.0) L 09/03/21 05:44 [place] % (Auto) 6.6 % (0.0-7.3) 09/03/21 05:44 Eos % (Auto) 0.0 % (0.0-4.3) 09/03/21 05:44 Baso % (Auto) 0.3 % (0.0-1.8) 09/03/21 05:44 Lymph # (Auto) 1.0 K/mm3 (1.2-5.4) L 09/03/21 05:44 [place] # (Auto) 0.9 K/mm3 (0.0-0.8) H 09/03/21 05:44 Eos # (Auto) 0.0 K/mm3 (0.0-0.4) 09/03/21 05:44 Baso # (Auto) 0.0 K/mm3 (0.0-0.1) 09/03/21 05:44 Seg Neutrophils % 85.7 % (40.0-70.0) H 09/03/21 05:44 Seg Neutrophils # 11.1 K/mm3 (1.8-7.7) H 09/03/21 05:44 PT 23.4 Sec. (12.2-14.9) H 09/02/21 16:08 INR 1.89 (0.87-1.13) H 09/02/21 16:08 Sodium 142 mmol/L (137-145) 09/03/21 05:44 Potassium 3.2 mmol/L (3.6-5.0) L D 09/03/21 05:44 Chloride 99.8 mmol/L (98-107) 09/03/21 05:44 Carbon Dioxide 24 mmol/L (22-30) 09/03/21 05:44 Anion Gap 21 mmol/L 09/03/21 05:44 BUN 38 mg/dL (7-17) H 09/03/21 05:44 Creatinine 2.1 mg/dL (0.6-1.2) H 09/03/21 05:44 Estimated GFR 22 ml/min 09/03/21 05:44 BUN/Creatinine Ratio 18 % 09/03/21 05:44 Glucose 79 mg/dL (65-100) 09/03/21 05:44 Lactic Acid 1.70 mmol/L (0.7-2.0) 09/03/21 05:44 Calcium 8.2 mg/dL (8.4-10.2) L 09/03/21 05:44 Phosphorus 4.20 mg/dL (2.5-4.5) 09/02/21 16:08 Magnesium 1.60 mg/dL (1.7-2.3) L 09/02/21 16:08 Total Bilirubin 2.30 mg/dL (0.1-1.2) H 09/02/21 16:08 AST 49 units/L (5-40) H 09/02/21 16:08 ALT 10 units/L (7-56) 09/02/21 16:08 Alkaline Phosphatase 55 units/L (35-129) 09/02/21 16:08 Total Creatine Kinase 111 units/L (30-135) 09/02/21 16:08 Troponin T 0.323 ng/mL (0.00-0.029) H* 09/02/21 16:08 Total Protein 7.4 g/dL (6.3-8.2) 09/02/21 16:08 Albumin 3.5 g/dL (3.9-5) L 09/02/21 16:08 Albumin/Globulin Ratio 0.9 % 09/02/21 16:08 Triglycerides 83 mg/dL (2-149) 09/02/21 16:08 Cholesterol 93 mg/dL (50-199) 09/02/21 16:08 LDL Cholesterol Direct 42 mg/dL (50-130) L 09/02/21 16:08 HDL Cholesterol 45 mg/dL (40-59) 09/02/21 16:08 Cholesterol/HDL Ratio 2.06 % 09/02/21 16:08 TSH 1.870 mlU/mL (0.270-4.200) 09/02/21 17:41 Urine Color Yellow (Yellow) 09/02/21 19:12 Urine Turbidity Clear (Clear) 09/02/21 19:12 Urine pH 5.0 (5.0-7.0) 09/02/21 19:12 Ur Specific [place] 1.013 (1.003-1.030) 09/02/21 19:12 Urine Protein <15 mg/dl mg/dL (Negative) 09/02/21 19:12 Urine Glucose (UA) Neg mg/dL (Negative) 09/02/21 19:12 Urine Ketones Neg mg/dL (Negative) 09/02/21 19:12 Urine Blood Neg (Negative) 09/02/21 19:12 Urine Nitrite Neg (Negative) 09/02/21 19:12 Urine Bilirubin Neg (Negative) 09/02/21 19:12 Urine Urobilinogen 4.0 mg/dL (<2.0) 09/02/21 19:12 Ur Leukocyte Esterase Neg (Negative) 09/02/21 19:12 Urine WBC (Auto) 2.0 /HPF (0.0-6.0) 09/02/21 19:12 Urine RBC (Auto) 2.0 /HPF (0.0-6.0) 09/02/21 19:12 U Epithel Cells (Auto) 2.0 /HPF (0-13.0) 09/02/21 19:12 Hyaline Casts 2 /LPF 09/02/21 19:12 Urine Mucus Few /HPF 09/02/21 19:12 Salicylates < 0.3 mg/dL (2.8-20.0) L 09/02/21 17:41 Acetaminophen 5.0 ug/mL (10.0-30.0) L 09/02/21 17:41 Blood Type AB POSITIVE 09/02/21 20:15 Antibody Screen Negative 09/02/21 20:15 Microbiology: Microbiology 09/02/21 17:41 Peripheral/Venous Blood Culture - Preliminary NO GROWTH AFTER 24 HOURS 09/02/21 17:41 Peripheral/Venous Blood Culture - Preliminary NO GROWTH AFTER 24 HOURS Polanco/IV: Voiding Method External Female Catheter Active Medications - Current Medications Current Medications: Generic Name Dose Route Start Last Admin Trade Name Freq PRN Reason Stop Dose Admin Acetaminophen 650 mg 09/02/21 18:51 09/04/21 19:06 Acetaminophen 325 Mg Tab PO 650 mg Q6H PRN Administration Pain, Mild (1-3) Albuterol 2.5 mg 09/02/21 18:51 Albuterol 2.5 Mg/3 Ml Nebu IH Q4HRT PRN Shortness Of Breath Hydromorphone HCl 0.25 mg 09/02/21 18:51 Hydromorphone 1 Mg/1 Ml Inj IV Q4H PRN Pain, Moderate (4-6) Hydromorphone HCl 0.5 mg 09/02/21 18:51 Hydromorphone 1 Mg/1 Ml Inj IV Q23H PRN Pain , Severe (7-10) Ceftriaxone Sodium 1 gm in 50 mls @ 100 mls/hr 09/02/21 19:00 09/04/21 18:01 Rocephin/Ns 1 Gm/50 Ml IV 09/04/21 19:29 100 mls/hr Q24H ALEKS Administration Protocol Sodium Chloride 1,000 mls @ 75 mls/hr 09/03/21 11:00 09/03/21 21:27 Nacl 0.9% 1000 Ml IV 75 mls/hr DIRECT ALEKS Administration Ondansetron HCl 4 mg 09/02/21 18:51 Ondansetron 4 Mg/2 Ml Inj IV Q8H PRN Nausea And Vomiting Oxycodone/Acetaminophen 1 tab 09/02/21 18:51 09/04/21 04:29 Oxycodone /Acetaminophen 5-325mg Tab PO 1 tab Q16H PRN Administration Pain, Moderate (4-6) Sodium Chloride 10 ml 09/02/21 22:00 09/04/21 12:18 Sodium Chloride 0.9% 10 Ml Flush Syringe IV 10 ml BID ALEKS Administration Sodium Chloride 10 ml 09/02/21 18:51 Sodium Chloride 0.9% 10 Ml Flush Syringe IV PRN PRN LINE FLUSH Nutrition/Malnutrition Assess - Dietary Evaluation Nutrition/Malnutrition Findings: Nutrition Notes Start: 09/04/21 10:03 Freq: Status: Active Protocol: Document 09/04/21 10:03 NICOLE (Rec: 09/04/21 10:34 NICOLE [id number]) Nutrition Notes Need for Assessment generated from: MD Order Initial or Follow up Assessment Current Diagnosis Acute Kidney Injury,Sepsis Other Pertinent Diagnosis UTI, Met Acidosis, Toxic Encephalopathy, Atrial Fib, Dementia. Current Diet Cardiac Diet (since D 09/02), Dietary Supplements (B 09/04). Labs/Tests 09/03: K 3.2, BUN 38, Crea 2.1 , Ca 8.2. Pertinent Medications 09/04: Nutritionally unremarkable. Height 5 ft 5 in Weight 80 kg [place] Body Weight (kg) 56.81 BMI 29.3 Weight Status Overweight Subjective/Other Information RD consult for Dietary Supplements Order. Percent of energy/protein needs met: Prescribed Cardiac Diet provides for energy/protein needs (2,230 Kcal/85 g). during LOS.; additionally, Dietary Supplements contribute with 1,275 Kcal & 57.3 g. Burn Absent Trauma Absent GI Symptoms None Food Allergy No Skin Integrity/Comment Redness and bruises. Current % PO Negligible Minimum of two criteria No #1 Nutrition Diagnosis Inadequate protein-energy intake Etiology Pt's %PO intake of meals ereported as Neglible (0%), along with ongoing condition. As Evidenced by Signs and Symptoms Concomitant clinical diagnosed conditions, abnormal chemistry lab values. Is patient on ventilator? No Is Patient Ambulatory and/or Out of Bed Yes REE-([place]-St. Jeor-ambulatory/OOB) [ 1606.644 NUTR.[id number]] Kcal/Kg value to use for calculation 28 Approximate Energy Requirements Using 2240 kcal/Kg Calculation Used for Recommendations Kcal/kg Additional Notes Protein: 1-1.2 g/Kg; 57-68 g/ day (from IBW+critical care). Fluids: 1 ml/Kcal, or as per MD. Nutrition Intervention Change Diet Order: Continue Cardiac Diet, as per MD. Add Supplement/Snack (indicate name/kcal 8 fl oz Nepro with CARBSTEADY; /protein ) TID. Provides kCal: 1,275 Provides Protein (gm) 57 Goal #1 Maintain body weight within +/ -3% of current BWt during LOS. Goal #2 Reach and maintain acceptable chemistry lab values during LOS. Follow-Up By: 09/11/21 Additional Comments Continue monitoring food tolerance, %PO intake of meals , Hydration, and BM.
[2021-09-04] MEDS ORDERED: PANTOPRAZOLE 40 MG TAB PO SCH (22:00)
[2021-09-04] MEDS ORDERED: NON-FORMULARY EACH (Ferrous Sulfate [Ferrous Sulfate 324 Mg] 324 MG Tablet.Dr) PO SCH (22:00)
[2021-09-04] MEDS: POTASSIUM CHLORIDE ER 10 MEQ TAB PO SCH (22:02)
[2021-09-04] MEDS: PANTOPRAZOLE 40 MG TAB PO SCH (22:02)
[2021-09-04] MEDS: FERROUS SULFATE 325 MG TAB PO SCH (22:02)
[2021-09-04] MEDS: BUMETANIDE 1 MG TAB PO SCH (22:02)
[2021-09-04] MEDS: METOPROLOL TARTRATE 50 MG TAB PO SCH (22:03)
[2021-09-05] MEDS ORDERED: MELATONIN 5 MG TAB PO PRN (02:18)
[2021-09-05] MEDS: metOLazone 2.5 MG TAB PO SCH (05:49)
[2021-09-05] MEDS: LEVOTHYROXINE 112 MCG TAB PO SCH (05:49)
[2021-09-05 08:24] LABS: Calcium 8.2 mg/dL (8.4-10.2)
[2021-09-05 08:26] LABS: Basophils % (Auto) 0.8 % (0.0-1.8); Eosinophils # (Auto) 0.3 K/mm3 (0.0-0.4); Eosinophils % (Auto) 5.8 % (0.0-4.3); Hematocrit 27.9 % (30.3-42.9); Hemoglobin 9.2 gm/dl (10.1-14.3); Lymphocytes # (Auto) 1.1 K/mm3 (1.2-5.4); Lymphocytes % (Auto) 23.9 % (13.4-35.0); Mean Corpuscular HGB Conc 33 % (30-34); Mean Corpuscular Volume 112 fl (79-97); Monocytes # (Auto) 0.5 K/mm3 (0.0-0.8); Monocytes % (Auto) 11.7 % (0.0-7.3); Platelet Count 119 K/mm3 (140-440)
[2021-09-05] MEDS ORDERED: FISH OIL PO SCH (10:00)
[2021-09-05] MEDS ORDERED: [UNRECOGNIZED DRUG - OTHER] PO SCH (10:00)
[2021-09-05] MEDS ORDERED: OMEGA PO SCH (10:00)
[2021-09-05] MEDS ORDERED: DHA PO SCH (10:00)
[2021-09-05] MEDS ORDERED: EPA PO SCH (10:00)
[2021-09-05] MEDS: ASPIRIN EC 81 MG TAB PO SCH (10:08)
[2021-09-05] MEDS: BUMETANIDE 1 MG TAB PO SCH ×2 (10:08→21:48)
[2021-09-05] MEDS: PANTOPRAZOLE 40 MG TAB PO SCH ×2 (10:08→21:48)
[2021-09-05] MEDS: POTASSIUM CHLORIDE ER 10 MEQ TAB PO SCH ×2 (10:09→21:47)
[2021-09-05] MEDS: OMEGA-3 FATTY ACIDS/FISH OIL 1 GRAM CAP PO SCH (10:09)
[2021-09-05] MEDS: METOPROLOL TARTRATE 50 MG TAB PO SCH ×3 (10:09→23:40)
[2021-09-05] MEDS: FERROUS SULFATE 325 MG TAB PO SCH ×2 (10:15→21:48)
[2021-09-05] MEDS: CYANOCOBALAMIN (VIT B-12) 1000 MCG TAB PO SCH (10:15)
--- NOTE | 2021-09-05 13:11 | Consultation ---
History of Present Illness Consult date: 09/05/21 Requesting physician: NICK ROJO Consult reason: congestive heart failure History of present illness: Primary Platen Builder Up: Christopher Puri Pt is an 86-year-old female with a hx of chronic HFmrEF // ICMP, CAD s/p PTCA, CKD, HTN, and permanent AF (on Eliquis), who was brought in by her daughter for evaluation of altered mental status. Pt states she began feeling confused at home and reports chills the day of arrival. She was found to be septic in the setting of a UTI upon arrival, with evidence of JONAS as well. Pt is currently being treated as such and has been receiving IV fluids during this hospitalization. Cardiology has been consulted for mgmt of HF. Upon assessment, pt denies SOB but states her breathing is starting to feel "junky." She also reports BLE edema. Echo 07/2021 - EF 40-45%, moderate , mild-moderate MR, moderate TR, RVSP 44.72mmHg, mild [place]. PET MPI 12/2016 - large infarction in apical region, no additional areas of ischemia noted. Past History Past Medical History: acute [place], atrial fib, arthritis, CAD, heart failure, hypertension, hypothyroidism, renal failure Past Surgical History: PTCA. denies: CABG Social history: . denies: smoking, alcohol abuse Family history: CAD Medications and Allergies Allergies Allergy/AdvReac Type Severity Reaction Status Date / Time No Known Allergies Allergy Unverified 06/17/17 14:54 Home Medications Medication Instructions Recorded Confirmed Last Taken Type Cholecalciferol (Vitamin D3) 2,000 unit PO DAILY #60 capsule 04/22/18 09/04/21 09/03/21 Rx [Vitamin D3] Levothyroxine Sodium [Synthroid] 112 mcg PO QDAY #30 tablet 04/22/18 09/04/21 09/03/21 Rx [place]-3/Dha/Epa/Fish Oil [Fish Oil 1 each PO DAILY #30 capsule 04/22/18 09/04/21 09/03/21 Rx 1,000 mg Softgel] Saccharomyces Boulardii [Florastor] 250 mg PO DAILY #30 capsule 08/26/1808/1509/03/21 Rx HYDROcodone/APAP 10-325 [[place] 1 - 2 each PO TID PRN #14 tablet 05/20/19 1 09/03/21 Rx 10-325 mg TAB] HYDROcodone/APAP 5-325 [[place] 1 each PO Q6HR PRN #14 tablet 07/13/19 09/04/21 09/03/21 Rx 5-325 mg TAB] Ondansetron [Zofran ODT TAB] 4 mg PO Q8HR PRN #14 tab.rapdis 07/13/19 09/04/21 09/03/21 Rx Aspirin EC [Halfprin EC] 81 mg PO QDAY #30 tablet 11/18/19 09/04/21 09/03/21 Rx Bumetanide [Bumex 1 mg tab] 1 mg PO BID #60 tab 11/18/19 09/04/21 09/04/21 00:49 Rx Cholecalciferol Vit D3 [Vitamin D3 2,000 unit PO DAILY #30 tablet 11/18/19 09/04/21 09/03/21 Rx 1,000 UNIT TAB] Cyanocobalamin [Vitamin B-12] 1,000 mcg PO DAILY #30 tablet 11/18/19 09/04/21 09/03/21 Rx Metoprolol [Lopressor TAB] 50 mg PO BID #60 tablet 11/18/19 09/04/21 09/03/21 Rx [place]-3 Fatty Acids/Fish Oil [Fish 1,000 mg PO QDAY #30 capsule 11/18/19 09/04/21 09/03/21 Rx Oil] metOLazone [Zaroxolyn] 2.5 mg PO DAILY@0600 #30 tablet 11/18/19 09/04/21 09/03/21 Rx Sulfamethoxazole/Trimethoprim 1 each PO BID #10 tablet 12/04/19 09/04/21 09/03/21 Rx [Bactrim DS TAB] Apixaban [Eliquis] 2.5 mg PO BID 09/04/21 09/04/21 09/01/21 History Ferrous Sulfate [Ferrous Sulfate 324 mg PO BID 09/04/21 09/04/21 09/01/21 History 324 MG] Pantoprazole [Protonix] 40 mg PO BID 09/04/21 09/04/21 09/01/21 History Potassium Chloride [K-Dur] 30 meq PO BID 09/04/21 09/04/2121 History predniSONE [Deltasone] 5 mg PO QDAY 09/04/21 09/04/21 Unknown History Active Meds: Active Medications Acetaminophen (Acetaminophen 325 Mg Tab) 650 mg PO Q6H PRN PRN Reason: Pain, Mild (1-3) Last Admin: 09/04/21 19:06 Dose: 650 mg Documented by: Albuterol (Albuterol 2.5 Mg/3 Ml Nebu) 2.5 mg IH Q4HRT PRN PRN Reason: Shortness Of Breath Aspirin (Aspirin Ec 81 Mg Tab) 81 mg PO QDAY [facility] Last Admin: 09/05/21 10:08 Dose: 81 mg Documented by: Bumetanide (Bumetanide 1 Mg Tab) 1 mg PO BID [facility] Last Admin: 09/05/21 10:08 Dose: 1 mg Documented by: Cyanocobalamin (Cyanocobalamin (Vit B-12) 1000 Mcg Tab) 1,000 mcg PO DAILY [facility] Last Admin: 09/05/21 10:15 Dose: 1,000 mcg Documented by: Ferrous Sulfate (Ferrous Sulfate 325 Mg Tab) 325 mg PO BID [facility] Last Admin: 09/05/21 10:15 Dose: 325 mg Documented by: Fish Oil ([place]-3 Fatty Acids/Fish Oil 1 Gram Cap) 1,000 mg PO QDAY [facility] Last Admin: 09/05/21 10:09 Dose: 1,000 mg Documented by: Hydromorphone HCl (Hydromorphone 1 Mg/1 Ml Inj) 0.25 mg IV Q4H PRN PRN Reason: Pain, Moderate (4-6) Hydromorphone HCl (Hydromorphone 1 Mg/1 Ml Inj) 0.5 mg IV Q23H PRN PRN Reason: Pain , Severe (7-10) Sodium Chloride (Nacl 0.9% 1000 Ml) 1,000 mls @ 75 mls/hr IV DIRECT [facility] Last Admin: 09/03/21 21:27 Dose: 75 mls/hr Documented by: Levothyroxine Sodium (Levothyroxine 112 Mcg Tab) 112 mcg PO 0600 [facility] Last Admin: 09/05/21 05:49 Dose: 112 mcg Documented by: Metolazone (Metolazone 2.5 Mg Tab) 2.5 mg PO DAILY@0600 [facility] Last Admin: 09/05/21 05:49 Dose: 2.5 mg Documented by: Metoprolol Tartrate (Metoprolol Tartrate 50 Mg Tab) 50 mg PO BID [facility] Last Admin: 09/05/21 10:09 Dose: 50 mg Documented by: Ondansetron HCl (Ondansetron 4 Mg/2 Ml Inj) 4 mg IV Q8H PRN PRN Reason: Nausea And Vomiting Oxycodone/Acetaminophen (Oxycodone /Acetaminophen 5-325mg Tab) 1 tab PO Q16H PRN PRN Reason: Pain, Moderate (4-6) Last Admin: 09/04/21 20:31 Dose: 1 tab Documented by: Pantoprazole Sodium (Pantoprazole 40 Mg Tab) 40 mg PO BID [facility] Last Admin: 09/05/21 10:08 Dose: 40 mg Documented by: Potassium Chloride (Potassium Chloride Er 10 Meq Tab) 30 meq PO BID [facility] Last Admin: 09/05/21 10:09 Dose: 30 meq Documented by: Sodium Chloride (Sodium Chloride 0.9% 10 Ml Flush Syringe) 10 ml IV BID [facility] Last Admin: 09/05/21 10:16 Dose: 10 ml Documented by: Sodium Chloride (Sodium Chloride 0.9% 10 Ml Flush Syringe) 10 ml IV PRN PRN PRN Reason: LINE FLUSH Review of Systems Constitutional: chills, weakness, no fever Ears, nose, mouth and throat: no nasal congestion, no sore throat Cardiovascular: edema, shortness of breath, no chest pain, no orthopnea, no palpitations, no syncope, no lightheadedness Respiratory: shortness of breath, no cough Gastrointestinal: no abdominal pain, no nausea, no vomiting Genitourinary Female: dysuria, no flank pain Musculoskeletal: myalgias, no neck stiffness, no neck pain Integumentary: no rash, no wounds Neurological: no head injury, no paralysis, no numbness, no tingling, no se izures, no syncope, no vertigo, no headaches Endocrine: no cold intolerance, no heat intolerance Hematologic/Lymphatic: no easy bruising, no easy bleeding Allergic/Immunologic: no anaphylaxis Physical Examination Last Vital Signs Temp 98.3 F 09/05/21 09:22 Pulse 117 H 09/05/21 09:22 Resp 20 09/05/21 13:23 BP 123/63 09/05/21 10:09 Pulse Ox 96 09/05/21 13:23 General appearance: no acute distress HEENT: Positive: EOMI, Normocephaly Neck: Positive: neck supple, trachea midline Cardiac: Positive: irregularly irregular, S1/S2 Lungs: Positive: Decreased Breath Sounds (bases) Neuro: Positive: Grossly Intact Abdomen: Positive: Soft. Negative: Tender Skin: Negative: Rash Musculoskeletal: Pain in Joint (BLE) Extremities: Present: lower extr. pulses, +1 Edema (BLE), warm Results 09/05/21 07:44 09/05/21 07:44 CBC 09/05/21 Range/Units 07:44 WBC 4.5 (4.5-11.0) K/mm3 RBC 2.50 L (3.65-5.03) M/mm3 Hgb 9.2 L (10.1-14.3) gm/dl Hct 27.9 L (30.3-42.9) % Plt Count 119 L (140-440) K/mm3 Lymph # (Auto) 1.1 L (1.2-5.4) K/mm3 Towns # (Auto) 0.5 (0.0-0.8) K/mm3 Eos # (Auto) 0.3 (0.0-0.4) K/mm3 Baso # (Auto) 0.0 (0.0-0.1) K/mm3 Comprehensive Metabolic Panel 09/05/21 Range/Units 07:44 Sodium 138 (137-145) mmol/L Potassium 3.7 (3.6-5.0) mmol/L Chloride 99.7 (98-107) mmol/L Carbon Dioxide 27 (22-30) mmol/L BUN 28 H (7-17) mg/dL Creatinine 1.4 H (0.6-1.2) mg/dL Glucose 96 (65-100) mg/dL Calcium 8.2 L (8.4-10.2) mg/dL - Imaging and Cardiology Echo: report reviewed EKG: report reviewed, image reviewed - EKG Interpretation EKG: no acute changes EKG interpretations - EKG Supraventricular dysrhythmia: atrial fibrillation Assessment and Plan Closely monitor volume status in the setting of IV fluids given hx of HF. Agree with resumption of HF regimen: Bumex 1mg BID, Metolazone 2.5mg q4d, and Lopressor 50mg BID. No ACEI/ARB due to renal fxn. Resume Eliquis 2.5mg BID for AF / CVA prophylaxis. Pt seen in conjunction with Dr. Stone, who agrees with the assessment and plan of care. - Patient Problems (1) Sepsis Current Visit: Yes Status: Acute (2) UTI (urinary tract infection) Current Visit: Yes Status: Acute (3) CKD (chronic kidney disease) Current Visit: Yes Status: Chronic Qualifiers: Qualified Code(s): N18.9 - Chronic kidney disease, unspecified (4) Anemia Current Visit: Yes Status: Chronic (5) Permanent atrial fibrillation Current Visit: Yes Status: Chronic (6) Chronic HFrEF (heart failure with reduced ejection fraction) Current Visit: Yes Status: Chronic (7) Ischemic cardiomyopathy Current Visit: Yes Status: Chronic (8) CAD (coronary artery disease) Current Visit: Yes Status: Chronic Qualifiers: Coronary Disease-Associated Artery/Lesion type: [place] artery [place] vs. transplanted heart: [place] heart Associated angina: with stable angina Qualified Code(s): I25.118 - Atherosclerotic heart disease of [place] coronary artery with other forms of angina pectoris (9) S/P PTCA (percutaneous transluminal coronary angioplasty) Current Visit: Yes Status: Chronic (10) Hypertension Current Visit: Yes Status: Chronic Qualifiers: Hypertension type: primary hypertension Qualified Code(s): I10 - Essential (primary) hypertension (11) HLD (hyperlipidemia) Current Visit: Yes Status: Chronic Qualifiers: Hyperlipidemia type: mixed hyperlipidemia Qualified Code(s): E78.2 - Mixed hyperlipidemia (12) Hypothyroidism Current Visit: Yes Status: Chronic Qualifiers: Hypothyroidism type: acquired Qualified Code(s): E03.9 - Hypothyroidism, unspecified
--- NOTE | 2021-09-05 14:29 | Progress Note ---
Assessment and Plan - Patient Problems (1) Acute kidney injury superimposed on CKD Current Visit: Yes Status: Acute Plan to address problem: Likely in the setting of prerenal injury, urinary tract infection. Agree with current regimen including gentle IV fluid hydration and IV antibiotics to be dosed appropriately for decreased renal function. We will follow up closely and monitor renal functions daily. Morning labs are showing improvement in renal function. (2) Acute encephalopathy Current Visit: Yes Status: Acute Plan to address problem: Mentation improvement noted after patient started on IV antibiotic therapy and treatment of urinary tract infection. Now her mentation is essentially back to her baseline. (3) Sepsis Current Visit: Yes Status: Acute Plan to address problem: In the setting of a urinary tract infection patient has been started on appropriate IV antibiotic therapy along with gentle IV fluid hydration. Maintain mean arterial pressures above 65 mmHg. Will follow further recommendations from primary team. (4) UTI (urinary tract infection) Current Visit: Yes Status: Acute Qualifiers: Encounter type: initial encounter Plan to address problem: Please ensure that antibiotics are dosed appropriately for decreased renal function. (5) History of chronic congestive heart failure Current Visit: Yes Status: Chronic Plan to address problem: Currently she is on room air without any respiratory distress. Chest x-ray does not show any overt signs of fluid overload. We need to very carefully monitor her respiratory status once IV fluids are started. Subjective Date of service: 09/05/21 Interval history: No acute complaints this morning. Renal function showing improvement. Objective - Vital Signs Vital signs: Vital Signs - 12hr 09/05/21 09/05/21 09/05/21 02:35 05:07 09:22 Temperature 97.8 F 98.3 F Pulse Rate 87 83 117 H Respiratory 18 18 18 Rate Blood Pressure 111/47 112/63 123/63 O2 Sat by Pulse 95 96 95 Oximetry 09/05/21 09/05/21 10:09 13:23 Temperature Pulse Rate Respiratory 20 Rate Blood Pressure 123/63 O2 Sat by Pulse 96 Oximetry - General Appearance General appearance: well-developed, appears stated age EENT: ATNC Neck: no JVD, no thyromegaly Respiratory: Present: Clear to Ascultation, Normal Exam Cardiology: regular Gastrointestinal: normal Integumentary: no rash Neurologic: no focal deficit, alert and oriented x3 Musculoskeletal: deferred Psychiatric: cooperative - Lab 09/05/21 07:44 09/05/21 07:44 Most recent lab results Calcium 8.2 mg/dL (8.4-10.2) L 09/05/21 07:44 Phosphorus 4.20 mg/dL (2.5-4.5) 09/02/21 16:08 Magnesium 1.60 mg/dL (1.7-2.3) L 09/02/21 16:08 - Allied health notes Allied health notes reviewed: nursing Medications & Allergies - Medications Allergies/Adverse Reactions: Allergies No Known Allergies Allergy (Unverified 06/17/17 14:54) Home Medications: Home Medications Medication Instructions Recorded Confirmed Last Taken Type Cholecalciferol (Vitamin D3) 2,000 unit PO DAILY #60 capsule 04/22/18 09/04/21 09/03/21 Rx [Vitamin D3] Levothyroxine Sodium [Synthroid] 112 mcg PO QDAY #30 tablet 04/22/18 09/04/21 09/03/21 Rx [place]-3/Dha/Epa/Fish Oil [Fish Oil 1 each PO DAILY #30 capsule 04/22/18 09/04/21 09/03/21 Rx 1,000 mg Softgel] Saccharomyces Boulardii [Florastor] 250 mg PO DAILY #30 capsule 08/26/18 09/04/21 09/03/21 Rx HYDROcodone/APAP 10-325 [[place] 1 - 2 each PO TID PRN #14 tablet 05/20/19 09/04/21 09/03/21 Rx 10-325 mg TAB] HYDROcodone/APAP 5-325 [[place] 1 each PO Q6HR PRN #14 tablet 07/13/19 09/04/21 09/03/21 Rx 5-325 mg TAB] Ondansetron [Zofran ODT TAB] 4 mg PO Q8HR PRN #14 tab.rapdis 07/13/19 09/04/21 09/03/21 Rx Aspirin EC [Halfprin EC] 81 mg PO QDAY #30 tablet 11/18/19 09/04/21 09/03/21 Rx Bumetanide [Bumex 1 mg tab] 1 mg PO BID #60 tab 11/18/19 09/04/21 09/04/21 00:49 Rx Cholecalciferol Vit D3 [Vitamin D3 2,000 unit PO DAILY #30 tablet 0109/04/21 09/03/21 Rx 1,000 UNIT TAB] Cyanocobalamin [Vitamin B-12] 1,000 mcg PO DAILY #30 tablet 11/18/19 09/04/21 09/03/21 Rx Metoprolol [Lopressor TAB] 50 mg PO BID #60 tablet 11/18/19 09/04/21 09/03/21 Rx [place]-3 Fatty Acids/Fish Oil [Fish 1,000 mg PO QDAY #30 capsule 11/18/19 09/04/21 09/03/21 Rx Oil] metOLazone [Zaroxolyn] 2.5 mg PO DAILY@0600 #30 tablet 11/18/19 09/04/21 09/03/21 Rx Sulfamethoxazole/Trimethoprim 1 each PO BID #10 tablet 12/04/19 09/04/21 09/03/21 Rx [Bactrim DS TAB] Apixaban [Eliquis] 2.5 mg PO BID 09/04/21 09/04/21 09/01/21 History Ferrous Sulfate [Ferrous Sulfate 324 mg PO BID 09/04/21 09/04/21 09/01/21 H istory 324 MG] Pantoprazole [Protonix] 40 mg PO BID 09/04/21 09/04/21 09/01/21 History Potassium Chloride [K-Dur] 30 meq PO BID 09/04/21 09/04/21 09/01/21 History predniSONE [Deltasone] 5 mg PO QDAY 09/04/21 09/04/21 Unknown History Active Medications: Generic Name Dose Route Start Last Admin Trade Name Freq PRN Reason Stop Dose Admin Acetaminophen 650 mg 09/02/21 18:51 09/04/21 19:06 Acetaminophen 325 Mg Tab PO 650 mg Q6H PRN Administration Pain, Mild (1-3) Albuterol 2.5 mg 09/02/21 18:51 Albuterol 2.5 Mg/3 Ml Nebu IH Q4HRT PRN Shortness Of Breath Aspirin 81 mg 09/05/21 10:00 09/05/21 10:08 Aspirin Ec 81 Mg Tab PO 81 mg QDAY ALEKS Administration Bumetanide 1 mg 09/04/21 22:00 09/05/21 10:08 Bumetanide 1 Mg Tab PO 1 mg BID ALEKS Administration Cyanocobalamin 1,000 mcg 09/05/21 10:00 09/05/21 10:15 Cyanocobalamin (Vit B-12) 1000 Mcg Tab PO 1,000 mcg DAILY ALEKS Administration Ferrous Sulfate 325 mg 09/04/21 22:00 09/05/21 10:15 Ferrous Sulfate 325 Mg Tab PO 325 mg BID ALEKS Administration Fish Oil 1,000 mg 09/05/21 10:00 09/05/21 10:09 [place]-3 Fatty Acids/Fish Oil 1 Gram Cap PO 1,000 mg QDAY ALEKS Administration Hydromorphone HCl 0.25 mg 09/02/21 18:51 Hydromorphone 1 Mg/1 Ml Inj IV Q4H PRN Pain, Moderate (4-6) Hydromorphone HCl 0.5 mg 09/02/21 18:51 Hydromorphone 1 Mg/1 Ml Inj IV Q23H PRN Pain , Severe (7-10) Sodium Chloride 1,000 mls @ 75 mls/hr 09/03/21 11:00 09/03/21 21:27 Nacl 0.9% 1000 Ml IV 75 mls/hr DIRECT ALEKS Administration Levothyroxine Sodium 112 mcg 09/05/21 06:00 09/05/21 05:49 Levothyroxine 112 Mcg Tab PO 112 mcg 0600 ALEKS Administration Metolazone 2.5 mg 09/05/21 06:00 09/05/21 05:49 Metolazone 2.5 Mg Tab PO 2.5 mg DAILY@0600 ALEKS Administration Metoprolol Tartrate 50 mg 09/04/21 22:00 09/05/21 10:09 Metoprolol Tartrate 50 Mg Tab PO 50 mg BID ALEKS Administration Ondansetron HCl 4 mg 09/02/21 18:51 Ondansetron 4 Mg/2 Ml Inj IV Q8H PRN Nausea And Vomiting Oxycodone/Acetaminophen 1 tab 09/02/21 18:51 09/04/21 20:31 Oxycodone /Acetaminophen 5-325mg Tab PO 1 tab Q16H PRN Administration Pain, Moderate (4-6) Pantoprazole Sodium 40 mg 09/04/21 22:00 09/05/21 10:08 Pantoprazole 40 Mg Tab PO 40 mg BID ALEKS Administration Potassium Chloride 30 meq 09/04/21 22:00 09/05/21 10:09 Potassium Chloride Er 10 Meq Tab PO 30 meq BID ALEKS Administration Sodium Chloride 10 ml 09/02/21 22:00 09/05/21 10:16 Sodium Chloride 0.9% 10 Ml Flush Syringe IV 10 ml BID ALEKS Administration Sodium Chloride 10 ml 09/02/21 18:51 Sodium Chloride 0.9% 10 Ml Flush Syringe IV PRN PRN LINE FLUSH
[2021-09-05] MEDS: oxyCODONE /ACETAMINOPHEN 5-325MG TAB PO PRN (16:20)
--- NOTE | 2021-09-05 19:09 | Progress Note ---
Assessment and Plan - Patient Problems (1) Sepsis Current Visit: Yes Status: Acute Plan to address problem: Sepsis protocol: Patient symptoms improving. We will continue IV antibiotic therapy, IV fluid resuscitation therapy, supplemental oxygen, pulse oximetry, maintain mean arterial pressure greater than or equal to 65, serial lactic acid level, blood culture. (2) UTI (urinary tract infection) Current Visit: Yes Status: Acute Plan to address problem: Urinalysis, IV antibiotic therapy, CBC, supportive care. (3) Acidosis Current Visit: Yes Status: Acute Plan to address problem: IV fluid resuscitation therapy, serial lactic acid level, supportive care. (4) Acute kidney injury (JONAS) with acute tubular necrosis (ATN) Current Visit: Yes Status: Acute Plan to address problem: IV fluid resuscitation therapy, monitor urine output every shift, BMP, repeat BMP in a.m. (5) Toxic metabolic encephalopathy Current Visit: Yes Status: Acute Plan to address problem: Patient mental status improved. Patient denies pain. (6) Atrial fibrillation Current Visit: Yes Status: Acute Qualifiers: Atrial fibrillation type: longstanding persistent Qualified Code(s): I48.11 - Longstanding persistent atrial fibrillation Plan to address problem: Rate currently controlled, continue therapeutic anticoagulation. Cardiology t amelia consulted (7) Vascular dementia Current Visit: Yes Status: Acute Qualifiers: Dementia behavioral disturbance: without behavioral disturbance Qualified Code(s): F01.50 - Vascular dementia without behavioral disturbance Plan to address problem: Verbal prompting, verbal redirection, benzodiazepine therapy as clinically indicated. (8) Cerebral atherosclerosis Current Visit: Yes Status: Acute Plan to address problem: Verbal prompting, verbal redirection, supportive care, risk factor reduction. (9) DVT prophylaxis Current Visit: Yes Status: Acute Plan to address problem: SCDs bilateral lower extremities while in bed, continue therapeutic anticoagu lation (10) Advance care planning Current Visit: Yes Status: Acute Plan to address problem: Disease education done, care plan discussed, diagnoses discussed, prognosis discussed, patient is full code, patient acknowledges understanding and agreement with care plan, +30 minutes. History Interval history: 86 YO Female HD #4 with UTI complicated by sepsis, JONAS with ATN, toxic metabolic encephalopathy. Patient is again more alert this a.m. Patient denies any a.m. complaints. No reported nursing events. Patient leukocytosis resolved. Creatinine improved. Cardiology team consulted. Discharge planning in a.m. Hospitalist Physical - Constitutional Vitals: Temp Pulse Resp BP Pulse Ox 98.3 F 117 H 20 123/63 96 09/05/21 09:22 09/05/21 09:22 09/05/21 13:23 09/05/21 10:09 09/05/21 13:23 General appearance: Present: no acute distress - EENT Eyes: Present: PERRL, EOM intact ENT: hearing intact - Neck Neck: Present: supple - Respiratory Respiratory effort: normal Respiratory: bilateral: CTA - Cardiovascular Rhythm: regular Heart Sounds: Present: S1 & S2 - Extremities Extremities: no ischemia Peripheral Pulses: within normal limits - Abdominal General gastrointestinal: soft, non-tender, non-distended - Integumentary Integumentary: Present: clear, dry - Psychiatric Psychiatric: cooperative - Neurologic Neurologic: CNII-XII intact HEART Score - HEART Score Troponin: Troponin T 0.323 ng/mL (0.00-0.029) H* 09/02/21 16:08 Results - Labs CBC & Chem 7: 09/05/21 07:44 09/05/21 07:44 Labs: Laboratory Last Values WBC 4.5 K/mm3 (4.5-11.0) 09/05/21 07:44 RBC 2.50 M/mm3 (3.65-5.03) L 09/05/21 07:44 Hgb 9.2 gm/dl (10.1-14.3) L 09/05/21 07:44 Hct 27.9 % (30.3-42.9) L 09/05/21 07:44 MCV 112 fl (79-97) H 09/05/21 07:44 MCH 37 pg (28-32) H 09/05/21 07:44 MCHC 33 % (30-34) 09/05/21 07:44 RDW 16.0 % (13.2-15.2) H 09/05/21 07:44 Plt Count 119 K/mm3 (140-440) L 09/05/21 07:44 Lymph % (Auto) 23.9 % (13.4-35.0) 09/05/21 07:44 [place] % (Auto) 11.7 % (0.0-7.3) H 09/05/21 07:44 Eos % (Auto) 5.8 % (0.0-4.3) H 09/05/21 07:44 Baso % (Auto) 0.8 % (0.0-1.8) 09/05/21 07:44 Lymph # (Auto) 1.1 K/mm3 (1.2-5.4) L 09/05/21 07:44 [place] # (Auto) 0.5 K/mm3 (0.0-0.8) 09/05/21 07:44 Eos # (Auto) 0.3 K/mm3 (0.0-0.4) 09/05/21 07:44 Baso # (Auto) 0.0 K/mm3 (0.0-0.1) 09/05/21 07:44 Seg Neutrophils % 57.8 % (40.0-70.0) 09/05/21 07:44 Seg Neutrophils # 2.6 K/mm3 (1.8-7.7) 09/05/21 07:44 PT 23.4 Sec. (12.2-14.9) H 09/02/21 16:08 INR 1.89 (0.87-1.13) H 09/02/21 16:08 Sodium 138 mmol/L (137-145) 09/05/21 07:44 Potassium 3.7 mmol/L (3.6-5.0) 09/05/21 07:44 Chloride 99.7 mmol/L (98-107) 09/05/21 07:44 Carbon Dioxide 27 mmol/L (22-30) 09/05/21 07:44 Anion Gap 15 mmol/L 09/05/21 07:44 BUN 28 mg/dL (7-17) H 09/05/21 07:44 Creatinine 1.4 mg/dL (0.6-1.2) H 09/05/21 07:44 Estimated GFR 36 ml/min 09/05/21 07:44 BUN/Creatinine Ratio 20 % 09/05/21 07:44 Glucose 96 mg/dL (65-100) 09/05/21 07:44 Lactic Acid 1.70 mmol/L (0.7-2.0) 09/03/21 05:44 Calcium 8.2 mg/dL (8.4-10.2) L 09/05/21 07:44 Phosphorus 4.20 mg/dL (2.5-4.5) 09/02/21 16:08 Magnesium 1.60 mg/dL (1.7-2.3) L 09/02/21 16:08 Total Bilirubin 2.30 mg/dL (0.1-1.2) H 09/02/21 16:08 AST 49 units/L (5-40) H 09/02/21 16:08 ALT 10 units/L (7-56) 09/02/21 16:08 Alkaline Phosphatase 55 units/L (35-129) 09/02/21 16:08 Total Creatine Kinase 111 units/L (30-135) 09/02/21 16:08 Troponin T 0.323 ng/mL (0.00-0.029) H* 09/02/21 16:08 Total Protein 7.4 g/dL (6.3-8.2) 09/02/21 16:08 Albumin 3.5 g/dL (3.9-5) L 09/02/21 16:08 Albumin/Globulin Ratio 0.9 % 09/02/21 16:08 Triglycerides 83 mg/dL (2-149) 09/02/21 16:08 Cholesterol 93 mg/dL (50-199) 09/02/21 16:08 LDL Cholesterol Direct 42 mg/dL (50-130) L 09/02/21 16:08 HDL Cholesterol 45 mg/dL (40-59) 09/02/21 16:08 Cholesterol/HDL Ratio 2.06 % 09/02/21 16:08 TSH 1.870 mlU/mL (0.270-4.200) 09/02/21 17:41 Urine Color Yellow (Yellow) 09/02/21 19:12 Urine Turbidity Clear (Clear) 09/02/21 19:12 Urine pH 5.0 (5.0-7.0) 09/02/21 19:12 Ur Specific [place] 1.013 (1.003-1.030) 09/02/21 19:12 Urine Protein <15 mg/dl mg/dL (Negative) 09/02/21 19:12 Urine Glucose (UA) Neg mg/dL (Negative) 09/02/21 19:12 Urine Ketones Neg mg/dL (Negative) 09/02/21 19:12 Urine Blood Neg (Negative) 09/02/21 19:12 Urine Nitrite Neg (Negative) 09/02/21 19:12 Urine Bilirubin Neg (Negative) 09/02/21 19:12 Urine Urobilinogen 4.0 mg/dL (<2.0) 09/02/21 19:12 Ur Leukocyte Esterase Neg (Negative) 09/02/21 19:12 Urine WBC (Auto) 2.0 /HPF (0.0-6.0) 09/02/21 19:12 Urine RBC (Auto) 2.0 /HPF (0.0-6.0) 09/02/21 19:12 U Epithel Cells (Auto) 2.0 /HPF (0-13.0) 09/02/21 19:12 Hyaline Casts 2 /LPF 09/02/21 19:12 Urine Mucus Few /HPF 09/02/21 19:12 Salicylates < 0.3 mg/dL (2.8-20.0) L 09/02/21 17:41 Acetaminophen 5.0 ug/mL (10.0-30.0) L 09/02/21 17:41 Blood Type AB POSITIVE 09/02/21 20:15 Antibody Screen Negative 09/02/21 20:15 Microbiology: Microbiology 09/02/21 17:41 Peripheral/Venous Blood Culture - Preliminary NO GROWTH AFTER 48 HOURS 09/02/21 17:41 Peripheral/Venous Blood Culture - Preliminary NO GROWTH AFTER 48 HOURS [place]/IV: Voiding Method External Female Catheter Active Medications - Current Medications Current Medications: Generic Name Dose Route Start Last Admin Trade Name Freq PRN Reason Stop Dose Admin Acetaminophen 650 mg 09/02/21 18:51 09/04/21 19:06 Acetaminophen 325 Mg Tab PO 650 mg Q6H PRN Administration Pain, Mild (1-3) Albuterol 2.5 mg 09/02/21 18:51 Albuterol 2.5 Mg/3 Ml Nebu IH Q4HRT PRN Shortness Of Breath Apixaban 2.5 mg 09/05/21 22:00 Apixaban 2.5 Mg Tab PO Q12HR [facility] Protocol Aspirin 81 mg 09/05/21 10:00 09/05/21 10:08 Aspirin Ec 81 Mg Tab PO 81 mg QDAY ALEKS Administration Bumetanide 1 mg 09/04/21 22:00 09/05/21 10:08 Bumetanide 1 Mg Tab PO 1 mg BID ALEKS Administration Cyanocobalamin 1,000 mcg 09/05/21 10:00 09/05/21 10:15 Cyanocobalamin (Vit B-12) 1000 Mcg Tab PO 1,000 mcg DAILY ALEKS Administration Ferrous Sulfate 325 mg 09/04/21 22:00 09/05/21 10:15 Ferrous Sulfate 325 Mg Tab PO 325 mg BID ALEKS Administration Fish Oil 1,000 mg 09/05/21 10:00 09/05/21 10:09 [place]-3 Fatty Acids/Fish Oil 1 Gram Cap PO 1,000 mg QDAY ALEKS Administration Hydromorphone HCl 0.25 mg 09/02/21 18:51 Hydromorphone 1 Mg/1 Ml Inj IV Q4H PRN Pain, Moderate (4-6) Hydromorphone HCl 0.5 mg 09/02/21 18:51 Hydromorphone 1 Mg/1 Ml Inj IV Q23H PRN Pain , Severe (7-10) Sodium Chloride 1,000 mls @ 75 mls/hr 09/03/21 11:00 09/03/21 21:27 Nacl 0.9% 1000 Ml IV 75 mls/hr DIRECT ALEKS Administration Levothyroxine Sodium 112 mcg 09/05/21 06:00 09/05/21 05:49 Levothyroxine 112 Mcg Tab PO 112 mcg 0600 ALEKS Administration Metolazone 2.5 mg 09/05/21 06:00 09/05/21 05:49 Metolazone 2.5 Mg Tab PO 2.5 mg DAILY@0600 ALEKS Administration Metoprolol Tartrate 50 mg 09/04/21 22:00 09/05/21 10:09 Metoprolol Tartrate 50 Mg Tab PO 50 mg BID ALEKS Administration Ondansetron HCl 4 mg 09/02/21 18:51 Ondansetron 4 Mg/2 Ml Inj IV Q8H PRN Nausea And Vomiting Oxycodone/Acetaminophen 1 tab 09/02/21 18:51 09/05/21 16:20 Oxycodone /Acetaminophen 5-325mg Tab PO 1 tab Q16H PRN Administration Pain, Moderate (4-6) Pantoprazole Sodium 40 mg 09/04/21 22:00 09/05/21 10:08 Pantoprazole 40 Mg Tab PO 40 mg BID ALEKS Administration Potassium Chloride 30 meq 09/04/21 22:00 09/05/21 10:09 Potassium Chloride Er 10 Meq Tab PO 30 meq BID ALEKS Administration Sodium Chloride 10 ml 09/02/21 22:00 09/05/21 10:16 Sodium Chloride 0.9% 10 Ml Flush Syringe IV 10 ml BID ALEKS Administration Sodium Chloride 10 ml 09/02/21 18:51 Sodium Chloride 0.9% 10 Ml Flush Syringe IV PRN PRN LINE FLUSH Nutrition/Malnutrition Assess - Dietary Evaluation Nutrition/Malnutrition Findings: Nutrition Notes Start: 09/04/21 10:03 Freq: Status: Active Protocol: Document 09/04/21 10:03 NICOLE (Rec: 09/04/21 10:34 NICOLE [id number]) Nutrition Notes Need for Assessment generated from: MD Order Initial or Follow up Assessment Current Diagnosis Acute Kidney Injury,Sepsis Other Pertinent Diagnosis UTI, Met Acidosis, Toxic Encephalopathy, Atrial Fib, Dementia. Current Diet Cardiac Diet (since D 09/02), Dietary Supplements (B 09/04). Labs/Tests 09/03: K 3.2, BUN 38, Crea 2.1 , Ca 8.2. Pertinent Medications 09/04: Nutritionally unremarkable. Height 5 ft 5 in Weight 80 kg [place] Body Weight (kg) 56.81 BMI 29.3 Weight Status Overweight Subjective/Other Information RD consult for Dietary Supplements Order. Percent of energy/protein needs met: Prescribed Cardiac Diet provides for energy/protein needs (2,230 Kcal/85 g). during LOS.; additionally, Dietary Supplements contribute with 1,275 Kcal & 57.3 g. Burn Absent Trauma Absent GI Symptoms None Food Allergy No Skin Integrity/Comment Redness and bruises. Current % PO Negligible Minimum of two criteria No #1 Nutrition Diagnosis Inadequate protein-energy intake Etiology Pt's %PO intake of meals ereported as Neglible (0%), along with ongoing condition. As Evidenced by Signs and Symptoms Concomitant clinical diagnosed conditions, abnormal chemistry lab values. Is patient on ventilator? No Is Patient Ambulatory and/or Out of Bed Yes REE-([facility]-ambulatory/OOB) [ 1606.644 [id number]] Kcal/Kg value to use for calculation 28 Approximate Energy Requirements Using 2240 kcal/Kg Calculation Used for Recommendations Kcal/kg Additional Notes Protein: 1-1.2 g/Kg; 57-68 g/ day (from IBW+critical care). Fluids: 1 ml/Kcal, or as per MD. Nutrition Intervention Change Diet Order: Continue Cardiac Diet, as per MD. Add Supplement/Snack (indicate name/kcal 8 fl oz Nepro with CARBSTEADY; /protein ) TID. Provides kCal: 1,275 Provides Protein (gm) 57 Goal #1 Maintain body weight within +/ -3% of current BWt during LOS. Goal #2 Reach and maintain acceptable chemistry lab values during LOS. Follow-Up By: 09/11/21 Additional Comments Continue monitoring food tolerance, %PO intake of meals , Hydration, and BM.
[2021-09-05] MEDS: APIXABAN 2.5 MG TAB PO SCH (21:47)
[2021-09-05] MEDS: ACETAMINOPHEN 325 MG TAB PO PRN (21:56)
[2021-09-06] MEDS: SODIUM CHLORIDE 0.9% 1000 ML 1,000 ML IV SCH ×2 (03:48→16:37)
[2021-09-06] MEDS: LEVOTHYROXINE 112 MCG TAB PO SCH (05:11)
[2021-09-06] MEDS: ACETAMINOPHEN 325 MG TAB PO PRN (05:15)
[2021-09-06] MEDS: metOLazone 2.5 MG TAB PO SCH (05:35)
[2021-09-06 08:50] LABS: Basophils % (Auto) 0.7 % (0.0-1.8); Eosinophils # (Auto) 0.3 K/mm3 (0.0-0.4); Eosinophils % (Auto) 7.2 % (0.0-4.3); Hematocrit 27.3 % (30.3-42.9); Lymphocytes # (Auto) 1.2 K/mm3 (1.2-5.4); Lymphocytes % (Auto) 27.3 % (13.4-35.0); Mean Corpuscular HGB Conc 33 % (30-34); Mean Corpuscular Volume 112 fl (79-97); Monocytes # (Auto) 0.6 K/mm3 (0.0-0.8); Monocytes % (Auto) 14.9 % (0.0-7.3); Platelet Count 120 K/mm3 (140-440); Red Blood Count 2.44 M/mm3 (3.65-5.03); Red Cell Distribution Width 15.8 % (13.2-15.2)
[2021-09-06 09:06] LABS: Calcium 8.2 mg/dL (8.4-10.2)
[2021-09-06] MEDS: BUMETANIDE 1 MG TAB PO SCH ×2 (10:30→22:44)
--- NOTE | 2021-09-06 11:35 | Progress Note ---
Assessment and Plan Closely monitor volume status in the setting of IV fluids given hx of HF. Continue of HF regimen: Bumex 1mg BID, Metolazone 2.5mg q4d, and Lopressor 50mg BID. No ACEI/ARB due to renal fxn. Continue Eliquis 2.5mg BID for AF / CVA prophylaxis. Troponins noted to be elevated in setting of sepsis and kidney disease suspect NSTEMI type 2. Furthermore, patient denies cardiac complaints. Recommend conservative management Patient cardiac status is stable Patient has a follow-up appointment with Dr. Puri, [facility] sales and in home delivery specialist, on 09/16/2021 at 8:45 AM in our [place] location. Phone [phone] Pt seen in conjunction with Dr. Stone, who agrees with the assessment and plan of care. - Patient Problems (1) NSTEMI (non-ST elevated myocardial infarction) Current Visit: Yes Status: Acute (2) Acute kidney injury superimposed on CKD Current Visit: Yes Status: Acute (3) Sepsis Current Visit: Yes Status: Acute (4) UTI (urinary tract infection) Current Visit: Yes Status: Acute (5) Anemia Current Visit: Yes Status: Chronic (6) Chronic HFrEF (heart failure with reduced ejection fraction) Current Visit: Yes Status: Chronic (7) Chronic atrial fibrillation Current Visit: Yes Status: Chronic (8) HLD (hyperlipidemia) Current Visit: Yes Status: Chronic Qualifiers: Hyperlipidemia type: mixed hyperlipidemia Qualified Code(s): E78.2 - Mixed hyperlipidemia (9) Hypertension Current Visit: Yes Status: Chronic Qualifiers: Hypertension type: primary hypertension Qualified Code(s): I10 - Essential (primary) hypertension (10) Hypothyroidism Current Visit: Yes Status: Chronic Qualifiers: Hypothyroidism type: acquired Qualified Code(s): E03.9 - Hypothyroidism, unspecified (11) Ischemic cardiomyopathy Current Visit: Yes Status: Chronic (12) S/P PTCA (percutaneous transluminal coronary angioplasty) Current Visit: Yes Status: Chronic Subjective Date of service: 09/06/21 Principal diagnosis: sepsis Interval history: Patient resting in bed in no acute distress, denies any cardaic complaints, and reports feeling better afib 60s with no events Objective Vital Signs Temp Pulse Resp BP Pulse Ox 09/06/21 04:34 98.1 F 63 16 99/40 96 09/06/21 01:00 95 09/05/21 23:40 111/53 09/05/21 22:05 98.3 F 73 16 11153 98 09/05/21 13:23 20 96 - Physical Examination General: No Apparent Distress HEENT: Positive: EOMI, Normocephaly Neck: Positive: neck supple, trachea midline Cardiac: Positive: irregularly irregular Lungs: Positive: Decreased Breath Sounds Neuro: Positive: Grossly Intact Abdomen: Positive: Soft. Negative: Tender Skin: Negative: Rash Musculoskeletal: Pain in Joint (BLE) Extremities: Present: lower extr. pulses, +1 Edema (BLE), warm - Labs and Meds CBC 09/06/21 Range/Units 08:05 WBC 4.4 L (4.5-11.0) K/mm3 RBC 2.44 L (3.65-5.03) M/mm3 Hgb 9.0 L (10.1-14.3) gm/dl Hct 27.3 L (30.3-42.9) % Plt Count 120 L (140-440) K/mm3 Lymph # (Auto) 1.2 (1.2-5.4) K/mm3 [place] # (Auto) 0.6 (0.0-0.8) K/mm3 Eos # (Auto) 0.3 (0.0-0.4) K/mm3 Baso # (Auto) 0.0 (0.0-0.1) K/mm3 Comprehensive Metabolic Panel 09/06/21 Range/Units 08:05 Sodium 135 L (137-145) mmol/L Potassium 3.8 (3.6-5.0) mmol/L Chloride 98.2 (98-107) mmol/L Carbon Dioxide 28 (22-30) mmol/L BUN 24 H (7-17) mg/dL Creatinine 1.3 H (0.6-1.2) mg/dL Glucose 94 (65-100) mg/dL Calcium 8.2 L (8.4-10.2) mg/dL - Imaging and Cardiology EKG: report reviewed, image reviewed Echo: report reviewed - Telemetry EKG Rhythm: Atrial Fibrillation - EKG Supraventricular dysrhythmia: atrial fibrillation - Allied health notes Allied health notes reviewed: nursing
--- NOTE | 2021-09-06 13:08 | Electrocardiograph Report ---
[facility] Test Date: 2021-09-05 Test Time: 20:58:06 Pat Name: VIVIANE INGRAM Department: Room: A364 1 Gender: F Respiratory Coordinator: JAYLA : 1935 Requested By: RADHA GARRIDO Order Number: [id number] Reading MD: Jahaira Menjivar Measurements Intervals Vance Rate: 79 P: FL: QRS: -55 QRSD: 104 T: 164 QT: 418 QTc: 489 Interpretive Statements Atrial fibrillation Left anterior fascicular block Low voltage, extremity and precordial leads Consider old anterior infarct Compared to ECG 09/02/2021 16:00:08 No significant change Electronically Signed On 09-06-2021 13:08:00 EST by Jahaira Menjivar
--- NOTE | 2021-09-06 14:01 | Progress Note ---
Assessment and Plan - Patient Problems (1) Acute kidney injury superimposed on CKD Current Visit: Yes Status: Acute Plan to address problem: Likely in the setting of prerenal injury, urinary tract infection. Agree with current regimen including gentle IV fluid hydration and IV antibiotics to be dosed appropriately for decreased renal function. We will follow up closely and monitor renal functions daily. Morning labs are showing improvement in renal function. (2) Acute encephalopathy Current Visit: Yes Status: Acute Plan to address problem: Mentation improvement noted after patient started on IV antibiotic therapy and treatment of urinary tract infection. Now her mentation is essentially back to her baseline. (3) Sepsis Current Visit: Yes Status: Acute Plan to address problem: In the setting of a urinary tract infection patient has been started on appropriate IV antibiotic therapy along with gentle IV fluid hydration. Maintain mean arterial pressures above 65 mmHg. Will follow further recommendations from primary team. (4) UTI (urinary tract infection) Current Visit: Yes Status: Acute Plan to address problem: Please ensure that antibiotics are dosed appropriately for decreased renal function. (5) History of chronic congestive heart failure Current Visit: Yes Status: Chronic Plan to address problem: Currently she is on room air without any respiratory distress. Chest x-ray does not show any overt signs of fluid overload. monitor respiratory status closely on continuous IV fluids which have been started at 75 cc an hour. Subjective Date of service: 09/06/21 Principal diagnosis: sepsis Interval history: no acute issues overnight. Renal function continues to show improvement. Cardiology evaluation reviewed. Objective - Vital Signs Vital signs: Vital Signs - 12hr 09/06/21 09/06/21 09/06/21 04:34 10:33 12:00 Temperature 98.1 F 99.4 F Pulse Rate 63 83 Respiratory 16 18 Rate Blood Pressure 99/40 104/46 112/48 O2 Sat by Pulse 96 97 Oximetry - General Appearance General appearance: well-developed, appears stated age, chronically ill EENT: ATNC Neck: no JVD Respiratory: Present: Clear to Ascultation Cardiology: regular Gastrointestinal: normal Integumentary: no rash Neurologic: no focal deficit Psychiatric: mood/affect appropriate - Lab 09/06/21 08:05 09/06/21 08:05 Most recent lab results Calcium 8.2 mg/dL (8.4-10.2) L 09/06/21 08:05 Phosphorus 4.20 mg/dL (2.5-4.5) 09/02/21 16:08 Magnesium 1.60 mg/dL (1.7-2.3) L 09/02/21 16:08 Medications & Allergies - Medications Allergies/Adverse Reactions: Allergies No Known Allergies Allergy (Unverified 06/17/17 14:54) Home Medications: Home Medications Medication Instructions Recorded Confirmed Last Taken Type Cholecalciferol (Vitamin D3) 2,000 unit PO DAILY #60 capsule 04/22/18 09/04/21 09/03/21 Rx [Vitamin D3] Levothyroxine Sodium [Synthroid] 112 mcg PO QDAY #30 tablet 04/22/18 09/04/21 09/03/21 Rx [place]-3/Dha/Epa/Fish Oil [Fish Oil 1 each PO DAILY #30 capsule 04/22/18 09/04/21 09/03/21 Rx 1,000 mg Softgel] Saccharomyces Boulardii [Florastor] 250 mg PO DAILY #30 capsule 08/26/18 09/04/21 09/03/21 Rx HYDROcodone/APAP 10-325 [[place] 1 - 2 each PO TID PRN #14 tablet 05/20/19 09/04/21 09/03/21 Rx 10-325 mg TAB] HYDROcodone/APAP 5-325 [[place] 1 each PO Q6HR PRN #14 tablet 07/13/19 09/04/21 09/03/21 Rx 5-325 mg TAB] Ondansetron [Zofran ODT TAB] 4 mg PO Q8HR PRN #14 tab.rapdis 07/13/19 09/04/21 09/03/21 Rx Aspirin EC [Halfprin EC] 81 mg PO QDAY #30 tablet 11/18/19 09/04/21 09/03/21 Rx Bumetanide [Bumex 1 mg tab] 1 mg PO BID #60 tab 11/18/19 09/04/21 09/04/21 00:49 Rx Cholecalciferol Vit D3 [Vitamin D3 2,000 unit PO DAILY #30 tablet 11/18/19 09/04/21 09/03/21 Rx 1,000 UNIT TAB] Cyanocobalamin [Vitamin B-12] 1,000 mcg PO DAILY #30 tablet 11/18/19 09/04/21 09/03/21 Rx Metoprolol [Lopressor TAB] 50 mg PO BID #60 tablet 11/18/19 09/04/21 09/03/21 Rx [place]-3 Fatty Acids/Fish Oil [Fish 1,000 mg PO QDAY #30 capsule 11/18/19 09/04/21 09/03/21 Rx Oil] metOLazone [Zaroxolyn] 2.5 mg PO DAILY@0600 #30 tablet 11/18/19 09/04/21 09/03/21 Rx Sulfamethoxazole/Trimethoprim 1 each PO BID #10 tablet 12/04/19 09/04/21 09/03/21 Rx [Bactrim DS TAB] Apixaban [Eliquis] 2.5 mg PO BID 09/04/21 09/04/21 09/01/21 History Ferrous Sulfate [Ferrous Sulfate 324 mg PO BID 09/04/21 09/04/21 09/01/21 History 324 MG] Pantoprazole [Protonix] 40 mg PO BID 09/04/21 09/04/21 09/01/21 History Potassium Chloride [K-Dur] 30 meq PO BID 09/04/21 09/04/21 09/01/21 History predniSONE [Deltasone] 5 mg PO QDAY 09/04/21 09/04/21 Unknown History Active Medications: Generic Name Dose Route Start Last Admin Trade Name Michelle PRN Reason Stop Dose Admin Acetaminophen 650 mg 09/02/21 18:51 09/06/21 05:15 Acetaminophen 325 Mg Tab PO 650 mg Q6H PRN Administration Pain, Mild (1-3) Albuterol 2.5 mg 09/02/21 18:51 Albuterol 2.5 Mg/3 Ml Nebu IH Q4HRT PRN Shortness Of Breath Apixaban 2.5 mg 09/05/21 22:00 09/05/21 21:47 Apixaban 2.5 Mg Tab PO 2.5 mg Q12HR ALEKS Administration Protocol Aspirin 81 mg 09/05/21 10:00 09/05/21 10:08 Aspirin Ec 81 Mg Tab PO 81 mg QDAY ALEKS Administration Bumetanide 1 mg 09/04/21 22:00 09/05/21 21:48 Bumetanide 1 Mg Tab PO 1 mg BID ALEKS Administration Cyanocobalamin 1,000 mcg 09/05/21 10:00 09/05/21 10:15 Cyanocobalamin (Vit B-12) 1000 Mcg Tab PO 1,000 mcg DAILY ALEKS Administration Ferrous Sulfate 325 mg 09/04/21 22:00 09/05/21 21:48 Ferrous Sulfate 325 Mg Tab PO 325 mg BID ALEKS Administration Fish Oil 1,000 mg 09/05/21 10:00 09/05/21 10:09 [place]-3 Fatty Acids/Fish Oil 1 Gram Cap PO 1,000 mg QDAY ALEKS Administration Hydromorphone HCl 0.25 mg 09/02/21 18:51 Hydromorphone 1 Mg/1 Ml Inj IV Q4H PRN Pain, Moderate (4-6) Hydromorphone HCl 0.5 mg 09/02/21 18:51 Hydromorphone 1 Mg/1 Ml Inj IV Q23H PRN Pain , Severe (7-10) Sodium Chloride 1,000 mls @ 75 mls/hr 09/03/21 11:00 09/06/21 03:48 Nacl 0.9% 1000 Ml IV 75 mls/hr DIRECT ALEKS Administration Levothyroxine Sodium 112 mcg 09/05/21 06:00 09/06/21 05:11 Levothyroxine 112 Mcg Tab PO 112 mcg 0600 ALEKS Administration Metolazone 2.5 mg 09/05/21 06:00 09/06/21 05:35 Metolazone 2.5 Mg Tab PO Not Given DAILY@0600 [facility] Metoprolol Tartrate 50 mg 09/04/21 22:00 09/05/21 23:40 Metoprolol Tartrate 50 Mg Tab PO 50 mg BID ALEKS Administration Ondansetron HCl 4 mg 09/02/21 18:51 Ondansetron 4 Mg/2 Ml Inj IV Q8H PRN Nausea And Vomiting Oxycodone/Acetaminophen 1 tab 09/02/21 18:51 09/05/21 16:20 Oxycodone /Acetaminophen 5-325mg Tab PO 1 tab Q16H PRN Administration Pain, Moderate (4-6) Pantoprazole Sodium 40 mg 09/04/21 22:00 09/05/21 21:48 Pantoprazole 40 Mg Tab PO 40 mg BID ALEKS Administration Potassium Chloride 30 meq 09/04/21 22:00 09/05/21 21:47 Potassium Chloride Er 10 Meq Tab PO 30 meq BID ALEKS Administration Sodium Chloride 10 ml 09/02/21 22:00 09/05/21 21:49 Sodium Chloride 0.9% 10 Ml Flush Syringe IV 10 ml BID ALEKS Administration Sodium Chloride 10 ml 09/02/21 18:51 Sodium Chloride 0.9% 10 Ml Flush Syringe IV PRN PRN LINE FLUSH
[2021-09-06] MEDS: POTASSIUM CHLORIDE ER 10 MEQ TAB PO SCH ×2 (14:45→22:43)
[2021-09-06] MEDS: oxyCODONE /ACETAMINOPHEN 5-325MG TAB PO PRN (15:03)
[2021-09-06] MEDS: CYANOCOBALAMIN (VIT B-12) 1000 MCG TAB PO SCH (15:05)
[2021-09-06] MEDS: FERROUS SULFATE 325 MG TAB PO SCH ×2 (15:05→22:43)
[2021-09-06] MEDS: OMEGA-3 FATTY ACIDS/FISH OIL 1 GRAM CAP PO SCH (15:05)
[2021-09-06] MEDS: PANTOPRAZOLE 40 MG TAB PO SCH ×2 (15:05→22:43)
[2021-09-06] MEDS: ASPIRIN EC 81 MG TAB PO SCH (15:06)
[2021-09-06] MEDS: APIXABAN 2.5 MG TAB PO SCH ×2 (15:08→22:43)
[2021-09-06] MEDS: METOPROLOL TARTRATE 50 MG TAB PO SCH ×2 (15:23→22:44)
[2021-09-06] MEDS ORDERED: WARFARIN 2.5 MG TAB PO SCH (17:00)
[2021-09-06] MEDS ORDERED: traMADol 50 MG TAB PO ONE (23:15)
[2021-09-07] MEDS: LEVOTHYROXINE 112 MCG TAB PO SCH (05:22)
[2021-09-07] MEDS: metOLazone 2.5 MG TAB PO SCH (05:28)
[2021-09-07 05:47] LABS: Hematocrit 28.6 % (30.3-42.9); Hemoglobin 9.5 gm/dl (10.1-14.3); Mean Corpuscular HGB Conc 33 % (30-34); Mean Corpuscular Volume 112 fl (79-97); Platelet Count 132 K/mm3 (140-440); Red Blood Count 2.55 M/mm3 (3.65-5.03); Red Cell Distribution Width 15.6 % (13.2-15.2)
--- NOTE | 2021-09-07 06:22 | Progress Note ---
Assessment and Plan Assessment and Plan - Patient Problems (1) Sepsis Current Visit: Yes Status: Acute Plan to address problem: Nearly resolved (2) UTI (urinary tract infection) Current Visit: Yes Status: Acute Plan to address problem: Nearly resolved (3) Acidosis Current Visit: Yes Status: Acute Plan to address problem: Resolved. (4) Acute kidney injury (JONAS) with acute tubular necrosis (ATN) Current Visit: Yes Status: Acute Plan to address problem: Continue IV fluids gently. Creatinine at 1.3 (5) Toxic metabolic encephalopathy Current Visit: Yes Status: Acute Plan to address problem: Mental status improved (6) Atrial fibrillation Current Visit: Yes Status: Acute Qualifiers: Atrial fibrillation type: longstanding persistent Qualified Code(s): I48.11 - Longstanding persistent atrial fibrillation Plan to address problem: Rate currently controlled, continue therapeutic anticoagulation. Cardiology team consulted (7) Vascular dementia Current Visit: Yes Status: Acute Qualifiers: Dementia behavioral disturbance: without behavioral disturbance Qualified Code(s): F01.50 - Vascular dementia without behavioral disturbance Plan to address problem: Verbal prompting, verbal redirection, benzodiazepine therapy as clinically in dicated. (8) Cerebral atherosclerosis Current Visit: Yes Status: Acute Plan to address problem: Verbal prompting, verbal redirection, supportive care, risk factor reduction. (9) DVT prophylaxis Current Visit: Yes Status: Acute Plan to address problem: SCDs bilateral lower extremities while in bed, continue therapeutic anticoagulation (10) Severe debility Needs physical therapy and probably placement Discussed with case management Subjective Date of service: 09/06/21 Principal diagnosis: sepsis Interval history: 86 YO Female with HTN, ID, CAD S/P stent placement, CHF, PE, OA, Atrial fibrillation on therapeutic anticoagulation, Vascular Dementia, Cerebral Atherosclerosis presents to ED for evaluation. The patient is confused and lethargic with diminished cognition at the time my evaluation is unable to provide history. Patient history taken from EMS staff, ED staff, told patient daughter who was at bedside during exam and interview. As per daughter the patient has experienced increased confusion, diminished oral intake and generalized weakness. EMS was notified and upon arrival the patient was found to be in distress and subsequent transported to [facility] for further care and evaluation of the aforementioned symptoms. Patient seen and evaluated in the emergency department. All lab and imaging studies reviewed. Patient found to have urinary tract infection complicated by sepsis, acute kidney injury, and toxic metabolic encephalopathy. Patient mated to medical floor and initiated on sepsis protocol. No reports of fever, chills, chest pain, palpitation, productive cough, skin rash, recent contact, or known exposure to COVID-19. Prior admission on 11/15/2019 reviewed. All medication listed at time of admission has been reconciled. Advanced care planning conducted in ED. 09/06/2021 Patient more comfortable lying in bed Discussed discharge planning with her Patient says that she is very weak and not willing to go home Physical therapy initiated Objective - Constitutional Vitals: Vital Signs - 12hr 09/06/21 09/06/21 09/07/21 22:31 22:40 01:00 Temperature 98.1 F Pulse Rate 106 H Respiratory 20 Rate Blood Pressure 102/50 105/57 O2 Sat by Pulse 97 96 Oximetry 09/07/21 05:26 Temperature Pulse Rate Respiratory Rate Blood Pressure 116/51 O2 Sat by Pulse Oximetry General appearance: Present: no acute distress, well-nourished - EENT Eyes: PERRL, EOM intact ENT: hearing intact, clear oral mucosa Ears: bilateral: normal - Neck Neck: supple, normal ROM - Respiratory Respiratory effort: normal Respiratory: bilateral: CTA - Breasts Breasts: normal - Cardiovascular Heart rate: 78 Rhythm: regular Heart Sounds: Present: S1 & S2. Absent: gallop, rub Extremities: pulses intact, No edema, normal color, Full ROM - Gastrointestinal General gastrointestinal: Present: soft, non-tender, non-distended, normal bowel sounds - Genitourinary Female genitourinary: normal - Integumentary Integumentary: clear, warm, dry - Musculoskeletal Musculoskeletal: 1, strength equal bilaterally - Neurologic Neurologic: moves all extremities - Psychiatric Psychiatric: memory intact, appropriate mood/affect, intact judgment & insight - Labs CBC & Chem 7: 09/07/21 04:56 09/06/21 08:05 Labs: Abnormal lab results 09/06/21 09/06/21 09/06/21 Range/Units 08:05 08:05 08:05 WBC 4.4 L (4.5-11.0) K/mm3 RBC 2.44 L (3.65-5.03) M/mm3 Hgb 9.0 L (10.1-14.3) gm/dl Hct 27.3 L (30.3-42.9) % MCV 112 H (79-97) fl MCH 37 H (28-32) pg RDW 15.8 H (13.2-15.2) % Plt Count 120 L (140-440) K/mm3 [place] % (Auto) 14.9 H (0.0-7.3) % Eos % (Auto) 7.2 H (0.0-4.3) % Sodium 135 L (137-145) mmol/L BUN 24 H (7-17) mg/dL Creatinine 1.3 H (0.6-1.2) mg/dL Calcium 8.2 L (8.4-10.2) mg/dL Troponin T 0.705 H* (0.00-0.029) ng/mL 09/07/21 Range/Units 04:56 WBC (4.5-11.0) K/mm3 RBC 2.55 L (3.65-5.03) M/mm3 Hgb 9.5 L (10.1-14.3) gm/dl Hct 28.6 L (30.3-42.9) % MCV 112 H (79-97) fl MCH 37 H (28-32) pg RDW 15.6 H (13.2-15.2) % Plt Count 132 L (140-440) K/mm3 [place] % (Auto) (0.0-7.3) % Eos % (Auto) (0.0-4.3) % Sodium (137-145) mmol/L BUN (7-17) mg/dL Creatinine (0.6-1.2) mg/dL Calcium (8.4-10.2) mg/dL Troponin T (0.00-0.029) ng/mL HEART Score - HEART Score Troponin: Troponin T 0.705 ng/mL (0.00-0.029) H* 09/06/21 08:05
[2021-09-07] MEDS: SODIUM CHLORIDE 0.9% 1000 ML 1,000 ML IV SCH (07:01)
[2021-09-07] MEDS: BUMETANIDE 1 MG TAB PO SCH ×2 (10:23→23:56)
[2021-09-07] MEDS: ASPIRIN EC 81 MG TAB PO SCH (10:35)
[2021-09-07] MEDS: CYANOCOBALAMIN (VIT B-12) 1000 MCG TAB PO SCH (10:35)
[2021-09-07] MEDS: METOPROLOL TARTRATE 50 MG TAB PO SCH ×2 (10:35→23:56)
[2021-09-07] MEDS: POTASSIUM CHLORIDE ER 10 MEQ TAB PO SCH ×2 (10:35→23:15)
[2021-09-07] MEDS: APIXABAN 2.5 MG TAB PO SCH ×2 (10:35→23:15)
[2021-09-07] MEDS: FERROUS SULFATE 325 MG TAB PO SCH ×2 (10:36→23:15)
[2021-09-07] MEDS: PANTOPRAZOLE 40 MG TAB PO SCH ×2 (10:36→23:15)
[2021-09-07] MEDS: OMEGA-3 FATTY ACIDS/FISH OIL 1 GRAM CAP PO SCH (10:36)
[2021-09-07] MEDS ORDERED: SODIUM CHLORIDE 0.9% 500 ML 500 ML IV SCH (11:00)
--- NOTE | 2021-09-07 11:05 | Progress Note ---
Assessment and Plan 86-year-old female with chronic atrial fibrillation chronic renal sufficiency coronary arterial disease had a complicated urinary tract infection causing acute on chronic renal insufficiency patient is compensated. But is hypotensive advised for normal saline bolus 500 cc over 5 hours. Hold Bumex today. Continue beta-nayeli therapy. Patient has abnormal troponin suggestive of non- STEMI type II given renal sufficiency and sepsis. Treat medically. Patient is on aspirin and Eliquis. Patient will have physical therapy today. Spoke with patient's family in detail about cardiac plan. Check labs in the morning. - Patient Problems (1) UTI (urinary tract infection), bacterial Current Visit: Yes Status: Acute (2) Acute kidney injury (JONAS) with acute tubular necrosis (ATN) Current Visit: Yes Status: Acute (3) Acute kidney injury superimposed on CKD Current Visit: Yes Status: Acute (4) Advance care planning Current Visit: Yes Status: Acute (5) Atrial fibrillation Current Visit: Yes Status: Chronic Qualifiers: Atrial fibrillation type: longstanding persistent Qualified Code(s): I48.11 - Longstanding persistent atrial fibrillation (6) CHF exacerbation Current Visit: Yes Status: Chronic Qualifiers: Heart failure type: systolic Qualified Code(s): I50.23 - Acute on chronic systolic (congestive) heart failure (7) NSTEMI (non-ST elevated myocardial infarction) Current Visit: Yes Status: Acute Plan to address problem: type 2 (8) CAD (coronary artery disease) Current Visit: Yes Status: Chronic Qualifiers: Coronary Disease-Associated Artery/Lesion type: [place] artery [place] vs. transplanted heart: [place] heart Associated angina: with stable angina Qualified Code(s): I25.118 - Atherosclerotic heart disease of [place] coronary artery with other forms of angina pectoris (9) Hypertension Current Visit: Yes Status: Chronic Qualifiers: Hypertension type: primary hypertension Qualified Code(s): I10 - Essential (primary) hypertension (10) Permanent atrial fibrillation Current Visit: Yes Status: Chronic (11) CAD (coronary artery disease) Current Visit: No Status: Chronic Qualifiers: Coronary Disease-Associated Artery/Lesion type: [place] coronary artery [place] vs. transplanted heart: [place] heart Associated angina: with unstable angina pectoris Subjective Date of service: 09/07/21 Principal diagnosis: sepsis Interval history: pt is weak but a little better Objective Vital Signs Temp Pulse Resp BP BP Pulse Ox 09/07/21 10:35 95 H 09/07/21 10:21 97.6 F 95 H 20 99/44 99 09/07/21 05:26 116/51 09/07/21 01:00 96 09/06/21 22:40 105/57 09/06/21 22:31 98.1 F 106 H 20 102/50 97 09/06/21 16:41 98.5 F 86 18 106/44 95 09/06/21 12:00 99.4 F 83 18 112/48 97 - Physical Examination General: No Apparent Distress HEENT: Positive: EOMI, Normocephaly Neck: Positive: neck supple, trachea midline Cardiac: Positive: Irregularly Regular Neuro: Positive: Grossly Intact Abdomen: Positive: Soft. Negative: Tender Skin: Negative: Rash Musculoskeletal: Pain in Joint (BLE) Extremities: Present: lower extr. pulses, edema (trace), warm - Labs and Meds CBC 09/07/21 Range/Units 04:56 WBC 5.3 (4.5-11.0) K/mm3 RBC 2.55 L (3.65-5.03) M/mm3 Hgb 9.5 L (10.1-14.3) gm/dl Hct 28.6 L (30.3-42.9) % Plt Count 132 L (140-440) K/mm3 - Imaging and Cardiology EKG: report reviewed, image reviewed Echo: report reviewed - Telemetry EKG Rhythm: Atrial Fibrillation - Allied health notes Allied health notes reviewed: nursing
--- NOTE | 2021-09-07 11:11 | Progress Note ---
Assessment and Plan - Patient Problems (1) Acute kidney injury superimposed on CKD Current Visit: Yes Status: Acute Plan to address problem: Acute kidney injury is probably prerenal azotemia secondary to volume depletion/sepsis. Kidney function is improving. Follow-up electrolytes and renal function. (2) UTI (urinary tract infection) Current Visit: Yes Status: Acute Plan to address problem: Continue antibiotics (3) Acute encephalopathy Current Visit: Yes Status: Acute Plan to address problem: Toxic/metabolic encephalopathy. Improved (4) Chronic HFrEF (heart failure with reduced ejection fraction) Current Visit: Yes Status: Chronic Plan to address problem: Compensated. Continue treatment. Continue to monitor for signs of volume overload. (5) Hypotension Current Visit: Yes Status: Acute Plan to address problem: Antihypertensive medications and diuretics on hold. Receiving gentle volume expansion. Follow-up blood pressure Subjective Date of service: 09/07/21 Principal diagnosis: sepsis Interval history: Patient seen lying in bed. She has no complaints. No voiding difficulties. Feels better Objective - Exam Narrative Exam: Elderly female lying in bed in no acute distress HEENT: NCAT, pink oral mucous membrane Neck: Supple, no venous distention CVS: S1S2 RRR with no murmur, rub or gallop Chest: Clear to auscultation Abdomen: Protuberant, soft, nontender, no organomegaly, bowel sounds are present Extremities: No edema Genitourinary deferred Neuro: Awake, dull, no focal deficits - Vital Signs Vital signs: Vital Signs - 12hr 09/07/21 09/07/21 09/07/21 01:00 05:26 10:21 Temperature 97.6 F Pulse Rate 95 H Respiratory 20 Rate Blood Pressure 116/51 Blood Pressure 99/44 [Left] O2 Sat by Pulse 96 99 Oximetry 09/07/21 10:35 Temperature Pulse Rate 95 H Respiratory Rate Blood Pressure Blood Pressure [Left] O2 Sat by Pulse Oximetry - Lab 09/07/21 04:56 09/06/21 08:05 Most recent lab results Calcium 8.2 mg/dL (8.4-10.2) L 09/06/21 08:05 Phosphorus 4.20 mg/dL (2.5-4.5) 09/02/21 16:08 Magnesium 1.60 mg/dL (1.7-2.3) L 09/02/21 16:08 Medications & Allergies - Medications Allergies/Adverse Reactions: Allergies No Known Allergies Allergy (Unverified 06/17/17 14:54) Home Medications: Home Medications Medication Instructions Recorded Confirmed Last Taken Type Cholecalciferol (Vitamin D3) 2,000 unit PO DAILY #60 capsule 04/22/18 09/04/21 09/03/21 Rx [Vitamin D3] Levothyroxine Sodium [Synthroid] 112 mcg PO QDAY #30 tablet 04/22/18 09/04/21 09/03/21 Rx [place]-3/Dha/Epa/Fish Oil [Fish Oil 1 each PO DAILY #30 capsule 04/22/18 09/04/21 09/03/21 Rx 1,000 mg Softgel] Saccharomyces Boulardii [Florastor] 250 mg PO DAILY #30 capsule 08/26/18 09/04/21 09/03/21 Rx HYDROcodone/APAP 10-325 [Pep 1 - 2 each PO TID PRN #14 tablet 05/20/19 09/04/21 09/03/21 Rx 10-325 mg TAB] HYDROcodone/APAP 5-325 [Pep 1 each PO Q6HR PRN #14 tablet 07/13/19 09/04/21 09/03/21 Rx 5-325 mg TAB] Ondansetron [Zofran ODT TAB] 4 mg PO Q8HR PRN #14 tab.rapdis 07/13/19 09/04/21 09/03/21 Rx Aspirin EC [Halfprin EC] 81 mg PO QDAY #30 tablet 11/18/19 09/04/21 09/03/21 Rx Bumetanide [Bumex 1 mg tab] 1 mg PO BID #60 tab 11/18/19 09/04/21 09/04/21 00:49 Rx Cholecalciferol Vit D3 [Vitamin D3 2,000 unit PO DAILY #30 tablet 11/18/19 09/04/21 09/03/21 Rx 1,000 UNIT TAB] Cyanocobalamin [Vitamin B-12] 1,000 mcg PO DAILY #30 tablet 11/18/19 09/04/21 09/03/21 Rx Metoprolol [Lopressor TAB] 50 mg PO BID #60 tablet 11/18/19 09/04/21 09/03/21 Rx [place]-3 Fatty Acids/Fish Oil [Fish 1,000 mg PO QDAY #30 capsule 11/18/19 09/04/21 09/03/21 Rx Oil] metOLazone [Zaroxolyn] 2.5 mg PO DAILY@0600 #30 tablet 11/18/19 09/04/21 09/03/21 Rx Sulfamethoxazole/Trimethoprim 1 each PO BID #10 tablet 12/04/19 09/04/21 09/03/21 Rx [Bactrim DS TAB] Apixaban [Eliquis] 2.5 mg PO BID 09/04/21 09/04/21 09/01/21 History Ferrous Sulfate [Ferrous Sulfate 324 mg PO BID 09/04/21 09/04/21 09/01/21 History 324 MG] Pantoprazole [Protonix] 40 mg PO BID 09/04/21 09/04/21 09/01/21 History Potassium Chloride [K-Dur] 30 meq PO BID 09/04/21 09/04/21 09/01/21 History predniSONE [Deltasone] 5 mg PO QDAY 09/04/21 09/04/21 Unknown History Active Medications: Generic Name Dose Route Start Last Admin Trade Name Freq PRN Reason Stop Dose Admin Acetaminophen 650 mg 09/02/21 18:51 09/06/21 05:15 Acetaminophen 325 Mg Tab PO 650 mg Q6H PRN Administration Pain, Mild (1-3) Albuterol 2.5 mg 09/02/21 18:51 Albuterol 2.5 Mg/3 Ml Nebu IH Q4HRT PRN Shortness Of Breath Apixaban 2.5 mg 09/05/21 22:00 09/07/21 10:35 Apixaban 2.5 Mg Tab PO 2.5 mg Q12HR ALEKS Administration Protocol Aspirin 81 mg 09/05/21 10:00 09/07/21 10:35 Aspirin Ec 81 Mg Tab PO 81 mg QDAY ALEKS Administration Bumetanide 1 mg 09/04/21 22:00 09/07/21 10:23 Bumetanide 1 Mg Tab PO Not Given BID [facility] Cyanocobalamin 1,000 mcg 09/05/21 10:00 09/07/21 10:35 Cyanocobalamin (Vit B-12) 1000 Mcg Tab PO 1,000 mcg DAILY ALEKS Administration Ferrous Sulfate 325 mg 09/04/21 22:00 09/07/21 10:36 Ferrous Sulfate 325 Mg Tab PO 325 mg BID ALEKS Administration Fish Oil 1,000 mg 09/05/21 10:00 09/07/21 10:36 [place]-3 Fatty Acids/Fish Oil 1 Gram Cap PO 1,000 mg QDAY ALEKS Administration Hydromorphone HCl 0.25 mg 09/02/21 18:51 Hydromorphone 1 Mg/1 Ml Inj IV Q4H PRN Pain, Moderate (4-6) Hydromorphone HCl 0.5 mg 09/02/21 18:51 09/07/21 05:31 Hydromorphone 1 Mg/1 Ml Inj IV 0.5 mg Q23H PRN Administration Pain , Severe (7-10) Sodium Chloride 1,000 mls @ 75 mls/hr 09/03/21 11:00 09/07/21 07:01 Nacl 0.9% 1000 Ml IV 75 mls/hr DIRECT ALEKS Administration Sodium Chloride 500 mls @ 100 mls/hr 09/07/21 11:00 Nacl 0.9% 500 Ml IV 09/07/21 15:59 DIRECT ALEKS Levothyroxine Sodium 112 mcg 09/05/21 06:00 09/07/21 05:22 Levothyroxine 112 Mcg Tab PO 112 mcg 0600 ALEKS Administration Metolazone 2.5 mg 09/05/21 06:00 09/07/21 05:28 Metolazone 2.5 Mg Tab PO Not Given DAILY@0600 ALEKS Metoprolol Tartrate 50 mg 09/04/21 22:00 09/07/21 10:35 Metoprolol Tartrate 50 Mg Tab PO 50 mg BID ALEKS Administration Ondansetron HCl 4 mg 09/02/21 18:51 Ondansetron 4 Mg/2 Ml Inj IV Q8H PRN Nausea And Vomiting Oxycodone/Acetaminophen 1 tab 09/02/21 18:51 09/06/21 15:03 Oxycodone /Acetaminophen 5-325mg Tab PO 1 tab Q16H PRN Administration Pain, Moderate (4-6) Pantoprazole Sodium 40 mg 09/04/21 22:00 09/07/21 10:36 Pantoprazole 40 Mg Tab PO 40 mg BID ALEKS Administration Potassium Chloride 30 meq 09/04/21 22:00 09/07/21 10:35 Potassium Chloride Er 10 Meq Tab PO 30 meq BID ALEKS Administration Sodium Chloride 10 ml 09/02/21 22:00 09/07/21 10:36 Sodium Chloride 0.9% 10 Ml Flush Syringe IV 10 ml BID ALEKS Administration Sodium Chloride 10 ml 09/02/21 18:51 Sodium Chloride 0.9% 10 Ml Flush Syringe IV PRN PRN LINE FLUSH
--- NOTE | 2021-09-07 14:03 | Progress Note ---
Assessment and Plan - Patient Problems (1) Sepsis Current Visit: Yes Status: Acute Plan to address problem: Nearly resolved (2) UTI (urinary tract infection) Current Visit: Yes Status: Acute Plan to address problem: Nearly resolved (3) Acidosis Current Visit: Yes Status: Acute Plan to address problem: Resolved. (4) Acute kidney injury (JONAS) with acute tubular necrosis (ATN) Current Visit: Yes Status: Acute Plan to address problem: Continue IV fluids gently. Creatinine at 1.3 (5) Toxic metabolic encephalopathy Current Visit: Yes Status: Acute Plan to address problem: Mental status improved (6) Atrial fibrillation Current Visit: Yes Status: Acute Qualifiers: Atrial fibrillation type: longstanding persistent Qualified Code(s): I48.11 - Longstanding persistent atrial fibrillation Plan to address problem: Rate currently controlled, continue therapeutic anticoagulation. Cardiology team consulted (7) Vascular dementia Current Visit: Yes Status: Acute Qualifiers: Dementia behavioral disturbance: without behavioral disturbance Qualified Code(s): F01.50 - Vascular dementia without behavioral disturbance Plan to address problem: Verbal prompting, verbal redirection, benzodiazepine therapy as clinically indicated. (8) Cerebral atherosclerosis Current Visit: Yes Status: Acute Plan to address problem: Verbal prompting, verbal redirection, supportive care, risk factor reduction. (9) DVT prophylaxis Current Visit: Yes Status: Acute Plan to address problem: SCDs bilateral lower extremities while in bed, continue therapeutic anticoagulation (10) Severe debility Needs physical therapy and probably placement Discussed with case management (11)Advance care planning Son wants subacute rehab Son signed DO NOT INTUBATE orders Subjective Date of service: 09/07/21 Principal diagnosis: sepsis Interval history: 86 YO Female with HTN, [place], CAD S/P stent placement, CHF, PE, OA, Atrial fibrillation on therapeutic anticoagulation, Vascular Dementia, Cerebral Atherosclerosis presents to ED for evaluation. The patient is confused and lethargic with diminished cognition at the time my evaluation is unable to provide history. Patient history taken from EMS staff, ED staff, told patient daughter who was at bedside during exam and interview. As per daughter the patient has experienced increased confusion, diminished oral intake and generalized weakness. EMS was notified and upon arrival the patient was found to be in distress and subsequent transported to [facility] for further care and evaluation of the aforementioned symptoms. Patient seen and evaluated in the emergency department. All lab and imaging studies reviewed. Patient found to have urinary tract infection complicated by sepsis, acute kidney injury, and toxic metabolic encephalopathy. Patient mated to medical floor and initiated on sepsis protocol. No reports of fever, chills, chest pain, palpitation, productive cough, skin rash, recent contact, or known exposure to COVID-19. Prior admission on 11/15/2019 reviewed. All medication listed at time of admission has been reconciled. Advanced care planning conducted in ED. 09/06/2021 Patient more comfortable lying in bed Discussed discharge planning with her Patient says that she is very weak and not willing to go home Physical therapy initiated 09/07/2021 Patient is lethargic Son is at bedside Discussed with son about subacute rehab Son states that he cannot take care of the patient at home Son signed DO NOT INTUBATE orders Objective - Constitutional Vitals: Vital Signs - 12hr 09/07/21 09/07/21 09/07/21 05:26 10:21 10:35 Temperature 97.6 F Pulse Rate 95 H 95 H Respiratory 20 Rate Blood Pressure 116/51 Blood Pressure 99/44 [Left] O2 Sat by Pulse 99 Oximetry General appearance: Present: no acute distress, well-nourished - EENT Eyes: PERRL, EOM intact ENT: hearing intact, clear oral mucosa Ears: bilateral: normal - Neck Neck: supple, normal ROM - Respiratory Respiratory effort: normal Respiratory: bilateral: CTA - Breasts Breasts: normal, other (2 plus pedal edema) - Cardiovascular Heart rate: 78 Rhythm: regular Heart Sounds: Present: S1 & S2. Absent: gallop, rub Extremities: pulses intact, No edema, normal color, Full ROM - Gastrointestinal General gastrointestinal: Present: soft, non-tender, non-distended, normal bowel sounds - Genitourinary Female genitourinary: normal - Integumentary Integumentary: clear, warm, dry - Musculoskeletal Musculoskeletal: 1, strength equal bilaterally - Neurologic Neurologic: moves all extremities - Psychiatric Psychiatric: memory intact, appropriate mood/affect, intact judgment & insight - Labs CBC & Chem 7: 09/08/21 04:45 09/08/21 04:45 Labs: Abnormal lab results 09/07/21 Range/Units 04:56 RBC 2.55 L (3.65-5.03) M/mm3 Hgb 9.5 L (10.1-14.3) gm/dl Hct 28.6 L (30.3-42.9) % MCV 112 H (79-97) fl MCH 37 H (28-32) pg RDW 15.6 H (13.2-15.2) % Plt Count 132 L (140-440) K/mm3 HEART Score - HEART Score Troponin: Troponin T 0.705 ng/mL (0.00-0.029) H* 09/06/21 08:05
[2021-09-07] MEDS ORDERED: oxyCODONE /ACETAMINOPHEN 5-325MG TAB PO PRN (16:07)
[2021-09-07] MEDS: oxyCODONE /ACETAMINOPHEN 5-325MG TAB PO PRN (16:39)
[2021-09-08 05:33] LABS: Calcium 8.8 mg/dL (8.4-10.2)
[2021-09-08] MEDS: metOLazone 2.5 MG TAB PO SCH (05:47)
[2021-09-08] MEDS: LEVOTHYROXINE 112 MCG TAB PO SCH (05:47)
[2021-09-08 05:50] LABS: Basophils % (Auto) 0.5 % (0.0-1.8); Eosinophils # (Auto) 0.1 K/mm3 (0.0-0.4); Eosinophils % (Auto) 1.5 % (0.0-4.3); Hematocrit 30.2 % (30.3-42.9); Hemoglobin 9.9 gm/dl (10.1-14.3); Lymphocytes # (Auto) 1.4 K/mm3 (1.2-5.4); Lymphocytes % (Auto) 22.8 % (13.4-35.0); Mean Corpuscular HGB Conc 33 % (30-34); Mean Corpuscular Volume 111 fl (79-97); Monocytes # (Auto) 0.8 K/mm3 (0.0-0.8); Monocytes % (Auto) 13.3 % (0.0-7.3); Platelet Count 155 K/mm3 (140-440); Red Blood Count 2.73 M/mm3 (3.65-5.03)
[2021-09-08] MEDS: PANTOPRAZOLE 40 MG TAB PO SCH ×2 (09:38→23:17)
[2021-09-08] MEDS: OMEGA-3 FATTY ACIDS/FISH OIL 1 GRAM CAP PO SCH (09:39)
[2021-09-08] MEDS: FERROUS SULFATE 325 MG TAB PO SCH ×2 (09:39→23:17)
[2021-09-08] MEDS: oxyCODONE /ACETAMINOPHEN 5-325MG TAB PO PRN (09:39)
[2021-09-08] MEDS: METOPROLOL TARTRATE 50 MG TAB PO SCH (09:39)
[2021-09-08] MEDS: CYANOCOBALAMIN (VIT B-12) 1000 MCG TAB PO SCH (09:39)
[2021-09-08] MEDS: POTASSIUM CHLORIDE ER 10 MEQ TAB PO SCH (09:39)
[2021-09-08] MEDS: ASPIRIN EC 81 MG TAB PO SCH (09:40)
[2021-09-08] MEDS: BUMETANIDE 1 MG TAB PO SCH (09:40)
[2021-09-08] MEDS: APIXABAN 2.5 MG TAB PO SCH ×2 (09:40→23:17)
--- NOTE | 2021-09-08 11:08 | Progress Note ---
Assessment and Plan 86-year-old female with chronic atrial fibrillation chronic renal sufficiency coronary arterial disease had a complicated urinary tract infection causing acute on chronic renal insufficiency patient is compensated. . Patient has abnormal troponin suggestive of non-STEMI type II given renal sufficiency and sepsis. Treat medically. Patient is on aspirin and Eliquis. Patient will have physical therapy today. Spoke with patient's family in detail about cardiac plan. reduce bumex to once a day and mild edema, needs rehab, discuss with family, is still weak - Patient Problems (1) UTI (urinary tract infection), bacterial Current Visit: Yes Status: Acute (2) Acute kidney injury (JONAS) with acute tubular necrosis (ATN) Current Visit: Yes Status: Acute (3) Acute kidney injury superimposed on CKD Current Visit: Yes Status: Acute (4) Advance care planning Current Visit: Yes Status: Acute (5) Atrial fibrillation Current Visit: Yes Status: Chronic Qualifiers: Atrial fibrillation type: longstanding persistent Qualified Code(s): I48.11 - Longstanding persistent atrial fibrillation (6) CHF exacerbation Current Visit: Yes Status: Chronic Qualifiers: Heart failure type: systolic Qualified Code(s): I50.23 - Acute on chronic systolic (congestive) heart failure (7) NSTEMI (non-ST elevated myocardial infarction) Current Visit: Yes Status: Acute (8) CAD (coronary artery disease) Current Visit: Yes Status: Chronic Qualifiers: Coronary Disease-Associated Artery/Lesion type: [place] artery [place] vs. transplanted heart: [place] heart Associated angina: with stable angina Qualified Code(s): I25.118 - Atherosclerotic heart disease of [place] coronary artery with other forms of angina pectoris (9) Hypertension Current Visit: Yes Status: Chronic Qualifiers: Hypertension type: primary hypertension Qualified Code(s): I10 - Essential (primary) hypertension (10) Permanent atrial fibrillation Current Visit: Yes Status: Chronic (11) CAD (coronary artery disease) Current Visit: No Status: Chronic Qualifiers: Coronary Disease-Associated Artery/Lesion type: [place] coronary artery [place] vs. transplanted heart: [place] heart Associated angina: with unstable angina pectoris Subjective Date of service: 09/08/21 Principal diagnosis: sepsis Interval history: pt states legs are weak and uable to get up Objective Vital Signs Temp Pulse Resp BP Pulse Ox 09/08/21 09:39 80 09/08/21 07:40 99 09/08/21 05:24 99.5 F 80 18 126/49 94 09/08/21 02:00 96 09/07/21 23:00 98.7 F 72 20 113/39 93 09/07/21 17:24 100.1 F H 63 24 105/47 93 09/07/21 14:00 100 09/07/21 13:21 98.8 F 72 18 105/41 96 - Physical Examination General: No Apparent Distress HEENT: Positive: EOMI, Normocephaly Neck: Positive: neck supple, trachea midline Cardiac: Positive: Irregularly Regular Lungs: Positive: clear to auscultation Neuro: Positive: Grossly Intact Abdomen: Positive: Soft. Negative: Tender Skin: Negative: Rash Musculoskeletal: Pain in Joint (BLE) Extremities: Present: lower extr. pulses, edema (trace), warm - Labs and Meds CBC 09/08/21 Range/Units 04:45 WBC 6.3 (4.5-11.0) K/mm3 RBC 2.73 L (3.65-5.03) M/mm3 Hgb 9.9 L (10.1-14.3) gm/dl Hct 30.2 L (30.3-42.9) % Plt Count 155 (140-440) K/mm3 Lymph # (Auto) 1.4 (1.2-5.4) K/mm3 Person # (Auto) 0.8 (0.0-0.8) K/mm3 Eos # (Auto) 0.1 (0.0-0.4) K/mm3 Baso # (Auto) 0.0 (0.0-0.1) K/mm3 Comprehensive Metabolic Panel 09/08/21 09/08/21 Range/Units 04:45 04:45 Sodium 134 L (137-145) mmol/L Potassium 4.6 D (3.6-5.0) mmol/L Chloride 100.4 (98-107) mmol/L Carbon Dioxide 23 (22-30) mmol/L BUN 22 H (7-17) mg/dL Creatinine 1.3 H 1.3 H (0.6-1.2) mg/dL Glucose 116 H (65-100) mg/dL Calcium 8.8 (8.4-10.2) mg/dL - Imaging and Cardiology EKG: report reviewed, image reviewed Echo: report reviewed - Telemetry EKG Rhythm: Atrial Fibrillation (controlled rate) - Allied health notes Allied health notes reviewed: nursing
--- NOTE | 2021-09-08 15:16 | Progress Note ---
Assessment and Plan - Patient Problems (1) Acute kidney injury superimposed on CKD Current Visit: Yes Status: Acute Plan to address problem: Acute kidney injury is probably prerenal azotemia secondary to volume depletion/sepsis. Kidney function is stable better than her baseline. I suspect this is probably related to decreased muscle mass (patient had a hip fracture and was bedbound and got physical therapy for 6 to 8 weeks before she improved and went home). Follow-up electrolytes and renal function. (2) UTI (urinary tract infection) Current Visit: Yes Status: Acute Plan to address problem: Continue antibiotics (3) Acute encephalopathy Current Visit: Yes Status: Acute Plan to address problem: Toxic/metabolic encephalopathy. Improved (4) Chronic HFrEF (heart failure with reduced ejection fraction) Current Visit: Yes Status: Chronic Plan to address problem: Compensated. Continue treatment. Continue to monitor for signs of volume overload. (5) Hypotension Current Visit: Yes Status: Acute Plan to address problem: Antihypertensive medications and diuretics on hold. Agree with stopping intravenous fluids. Follow-up blood pressure Subjective Date of service: 09/08/21 Principal diagnosis: sepsis Interval history: Patient seen lying in bed. Her neighbor and his at bedside. She has no complaints. No voiding difficulties. Feels better Objective - Exam Narrative Exam: Elderly female lying in bed in no acute distress HEENT: NCAT, pink oral mucous membrane Neck: Supple, no venous distention CVS: S1S2 RRR with no murmur, rub or gallop Chest: Clear to auscultation Abdomen: Protuberant, soft, nontender, no organomegaly, bowel sounds are present Extremities: No edema Genitourinary deferred Neuro: Awake, alert, no focal deficits She is more awake and talkative today. - Vital Signs Vital signs: Vital Signs - 12hr 09/08/21 09/08/21 09/08/21 05:24 07:40 09:39 Temperature 99.5 F Pulse Rate 80 80 Respiratory 18 Rate Blood Pressure 126/49 O2 Sat by Pulse 94 99 Oximetry - Lab 09/08/21 04:45 09/08/21 04:45 Most recent lab results Calcium 8.8 mg/dL (8.4-10.2) 09/08/21 04:45 Phosphorus 4.20 mg/dL (2.5-4.5) 09/02/21 16:08 Magnesium 1.60 mg/dL (1.7-2.3) L 09/02/21 16:08 Medications & Allergies - Medications Allergies/Adverse Reactions: Allergies No Known Allergies Allergy (Unverified 06/17/17 14:54) Home Medications: Home Medications Medication Instructions Recorded Confirmed Last Taken Type Cholecalciferol (Vitamin D3) 2,000 unit PO DAILY #60 capsule 04/22/18 09/04/21 09/03/21 Rx [Vitamin D3] Levothyroxine Sodium [Synthroid] 112 mcg PO QDAY #30 tablet 04/22/18 09/04/21 09/03/21 Rx [place]-3/Dha/Epa/Fish Oil [Fish Oil 1 each PO DAILY #30 capsule 04/22/18 09/04/21 09/03/21 Rx 1,000 mg Softgel] Saccharomyces Boulardii [Florastor] 250 mg PO DAILY #30 capsule 08/26/18 09/04/21 09/03/21 Rx HYDROcodone/APAP 10-325 [[place] 1 - 2 each PO TID PRN #14 tablet 05/20/19 09/04/21 09/03/21 Rx 10-325 mg TAB] HYDROcodone/APAP 5-325 [[place] 1 each PO Q6HR PRN #14 tablet 07/13/19 09/04/21 09/03/21 Rx 5-325 mg TAB] Ondansetron [Zofran ODT TAB] 4 mg PO Q8HR PRN #14 tab.rapdis 07/13/19 09/04/21 09/03/21 Rx Aspirin EC [Halfprin EC] 81 mg PO QDAY #30 tablet 11/18/19 09/04/21 09/03/21 Rx Bumetanide [Bumex 1 mg tab] 1 mg PO BID #60 tab 11/18/19 09/04/21 09/04/21 00:49 Rx Cholecalciferol Vit D3 [Vitamin D3 2,000 unit PO DAILY #30 tablet 11/18/19 09/04/21 09/03/21 Rx 1,000 UNIT TAB] Cyanocobalamin [Vitamin B-12] 1,000 mcg PO DAILY #30 tablet 11/18/19 09/04/21 09/03/21 Rx Metoprolol [Lopressor TAB] 50 mg PO BID #60 tablet 11/18/19 09/04/21 09/03/21 Rx [place]-3 Fatty Acids/Fish Oil [Fish 1,000 mg PO QDAY #30 capsule 11/18/19 09/04/21 09/03/21 Rx Oil] metOLazone [Zaroxolyn] 2.5 mg PO DAILY@0600 #30 tablet 11/18/19 09/04/21 09/03/21 Rx Sulfamethoxazole/Trimethoprim 1 each PO BID #10 tablet 12/04/19 09/04/21 09/03/21 Rx [Bactrim DS TAB] Apixaban [Eliquis] 2.5 mg PO BID 09/04/21 09/04/21 09/01/21 History Ferrous Sulfate [Ferrous Sulfate 324 mg PO BID 09/04/21 09/04/21 09/01/21 History 324 MG] Pantoprazole [Protonix] 40 mg PO BID 09/04/21 09/04/21 09/01/21 History Potassium Chloride [K-Dur] 30 meq PO BID 09/04/21 09/04/21 09/01/21 History predniSONE [Deltasone] 5 mg PO QDAY 09/04/21 09/04/21 Unknown History Active Medications: Generic Name Dose Route Start Last Admin Trade Name Freq PRN Reason Stop Dose Admin Acetaminophen 650 mg 09/02/21 18:51 09/06/21 05:15 Acetaminophen 325 Mg Tab PO 650 mg Q6H PRN Administration Pain, Mild (1-3) Albuterol 2.5 mg 09/02/21 18:51 Albuterol 2.5 Mg/3 Ml Nebu IH Q4HRT PRN Shortness Of Breath Apixaban 2.5 mg 09/05/21 22:00 09/08/21 09:40 Apixaban 2.5 Mg Tab PO 2.5 mg Q12HR ALEKS Administration Protocol Aspirin 81 mg 09/05/21 10:00 09/08/21 09:40 Aspirin Ec 81 Mg Tab PO 81 mg QDAY ALEKS Administration Bumetanide 1 mg 09/09/21 10:00 Bumetanide 1 Mg Tab PO QDAY ALEKS Cyanocobalamin 1,000 mcg 09/05/21 10:00 09/08/21 09:39 Cyanocobalamin (Vit B-12) 1000 Mcg Tab PO 1,000 mcg DAILY ALEKS Administration Ferrous Sulfate 325 mg 09/04/21 22:00 09/08/21 09:39 Ferrous Sulfate 325 Mg Tab PO 325 mg BID ALEKS Administration Fish Oil 1,000 mg 09/05/21 10:00 09/08/21 09:39 [place]-3 Fatty Acids/Fish Oil 1 Gram Cap PO 1,000 mg QDAY ALEKS Administration Hydromorphone HCl 0.25 mg 09/02/21 18:51 Hydromorphone 1 Mg/1 Ml Inj IV Q4H PRN Pain, Moderate (4-6) Hydromorphone HCl 0.5 mg 09/02/21 18:51 09/07/21 05:31 Hydromorphone 1 Mg/1 Ml Inj IV 0.5 mg Q23H PRN Administration Pain , Severe (7-10) Levothyroxine Sodium 112 mcg 09/05/21 06:00 09/08/21 05:47 Levothyroxine 112 Mcg Tab PO 112 mcg 0600 ALEKS Administration Metolazone 2.5 mg 09/05/21 06:00 09/08/21 05:47 Metolazone 2.5 Mg Tab PO 2.5 mg DAILY@0600 ALEKS Administration Metoprolol Tartrate 50 mg 09/04/21 22:00 09/08/21 09:39 Metoprolol Tartrate 50 Mg Tab PO 50 mg BID ALEKS Administration Ondansetron HCl 4 mg 09/02/21 18:51 Ondansetron 4 Mg/2 Ml Inj IV Q8H PRN Nausea And Vomiting Oxycodone/Acetaminophen 1 tab 09/02/21 18:51 09/08/21 09:39 Oxycodone /Acetaminophen 5-325mg Tab PO 1 tab Q16H PRN Administration Pain, Moderate (4-6) Oxycodone/Acetaminophen 1 tab 09/07/21 16:07 Oxycodone /Acetaminophen 5-325mg Tab PO Q6H PRN Pain, Moderate (4-6) Pantoprazole Sodium 40 mg 09/04/21 22:00 09/08/21 09:38 Pantoprazole 40 Mg Tab PO 40 mg BID ALEKS Administration Potassium Chloride 20 meq 09/09/21 10:00 Potassium Chloride Er 20 Meq Tab PO QDAY ALEKS Sodium Chloride 10 ml 09/02/21 22:00 09/08/21 09:40 Sodium Chloride 0.9% 10 Ml Flush Syringe IV 10 ml BID ALEKS Administration Sodium Chloride 10 ml 09/02/21 18:51 Sodium Chloride 0.9% 10 Ml Flush Syringe IV PRN PRN LINE FLUSH
--- NOTE | 2021-09-08 20:18 | Progress Note ---
Assessment and Plan - Patient Problems (1) Sepsis Current Visit: Yes Status: Acute Plan to address problem: Nearly resolved (2) UTI (urinary tract infection) Current Visit: Yes Status: Acute Plan to address problem: Nearly resolved (3) Acidosis Current Visit: Yes Status: Acute Plan to address problem: Resolved. (4) Acute kidney injury (JONAS) with acute tubular necrosis (ATN) Current Visit: Yes Status: Acute Plan to address problem: Creatinine is improved JONAS nearly resolved (5) Toxic metabolic encephalopathy Current Visit: Yes Status: Acute Plan to address problem: Mental status improved (6) Atrial fibrillation Current Visit: Yes Status: Acute Qualifiers: Atrial fibrillation type: longstanding persistent Qualified Code(s): I48.11 - Longstanding persistent atrial fibrillation Plan to address problem: Rate currently controlled, continue therapeutic anticoagulation. Cardiology team consulted (7) Vascular dementia Current Visit: Yes Status: Acute Qualifiers: Dementia behavioral disturbance: without behavioral disturbance Qualified Code(s): F01.50 - Vascular dementia without behavioral disturbance Plan to address problem: Verbal prompting, verbal redirection, benzodiazepine therapy as clinically indicated. (8) Cerebral atherosclerosis Current Visit: Yes Status: Acute Plan to address problem: Verbal prompting, verbal redirection, supportive care, risk factor reduction. (9) DVT prophylaxis Current Visit: Yes Status: Acute Plan to address problem: SCDs bilateral lower extremities while in bed, continue therapeutic anticoagulation (10) Severe debility Needs physical therapy and probably placement Discussed with case management (11)Advance care planning Son wants subacute rehab Son signed DO NOT INTUBATE orders Subjective Date of service: 09/08/21 Principal diagnosis: sepsis, severe debility Interval history: 86 YO Female with HTN, [place], CAD S/P stent placement, CHF, PE, OA, Atrial fibrilla tion on therapeutic anticoagulation, Vascular Dementia, Cerebral Atherosclerosis presents to ED for evaluation. The patient is confused and lethargic with diminished cognition at the time my evaluation is unable to provide history. Patient history taken from EMS staff, ED staff, told patient daughter who was at bedside during exam and interview. As per daughter the patient has experienced increased confusion, diminished oral intake and generalized weakness. EMS was notified and upon arrival the patient was found to be in distress and subsequent transported to [facility] for further care and evaluation of the aforementioned symptoms. Patient seen and evaluated in the emergency department. All lab and imaging studies reviewed. Patient found to have urinary tract infection complicated by sepsis, acute kidney injury, and toxic metabolic encephalopathy. Patient mated to medical floor and initiated on sepsis protocol. No reports of fever, chills, chest pain, palpitation, productive cough, skin rash, recent contact, or known exposure to COVID-19. Prior admission on 11/15/2019 reviewed. All medication listed at time of admission has been reconciled. Advanced care planning conducted in ED. 09/06/2021 Patient more comfortable lying in bed Discussed discharge planning with her Patient says that she is very weak and not willing to go home Physical therapy initiated 09/07/2021 Patient is lethargic Son is at bedside Discussed with son about subacute rehab Son states that he cannot take care of the patient at home Son signed DO NOT INTUBATE orders 09/08/2021 Patient is more alert today and responding to questions Patient refused physical therapy Patient agreed for physical therapy for tomorrow Less shortness of breath Patient needs subacute rehab/fdc facility Discussed with son at length Patient is DO NOT INTUBATE Informed case management about placement Objective - Constitutional Vitals: Vital Signs - 12hr 09/08/21 09/08/21 09/08/21 09:39 10:00 11:40 Temperature 98.7 F Pulse Rate 80 60 Respiratory 18 Rate Blood Pressure 92/42 O2 Sat by Pulse 99 95 Oximetry General appearance: Present: no acute distress, well-nourished - EENT Eyes: PERRL, EOM intact ENT: hearing intact, clear oral mucosa Ears: bilateral: normal - Neck Neck: supple, normal ROM - Respiratory Respiratory effort: normal Respiratory: bilateral: CTA - Breasts Breasts: normal - Cardiovascular Heart rate: 78 Rhythm: regular Heart Sounds: Present: S1 & S2. Absent: gallop, rub Extremities: no ischemia, pulses intact, No edema, normal color, Full ROM - Gastrointestinal General gastrointestinal: Present: soft, non-tender, non-distended, normal bowel sounds - Genitourinary Female genitourinary: normal - Integumentary Integumentary: clear, warm, dry - Musculoskeletal Musculoskeletal: generalized weakness - Neurologic Neurologic: moves all extremities - Psychiatric Psychiatric: memory intact, appropriate mood/affect, intact judgment & insight - Labs CBC & Chem 7: 09/08/21 04:45 09/08/21 04:45 Labs: Abnormal lab results 11/09/08/21 09/08/21 Range/Units 04:45 04:45 04:45 RBC 2.73 L (3.65-5.03) M/mm3 Hgb 9.9 L (10.1-14.3) gm/dl Hct 30.2 L (30.3-42.9) % MCV 111 H (79-97) fl MCH 36 H (28-32) pg RDW 16.0 H (13.2-15.2) % [place] % (Auto) 13.3 H (0.0-7.3) % Sodium 134 L (137-145) mmol/L BUN 22 H (7-17) mg/dL Creatinine 1.3 H 1.3 H (0.6-1.2) mg/dL Glucose 116 H (65-100) mg/dL HEART Score - HEART Score Troponin: Troponin T 0.705 ng/mL (0.00-0.029) H* 09/06/21 08:05
[2021-09-09] MEDS: METOPROLOL TARTRATE 50 MG TAB PO SCH ×3 (00:06→21:52)
[2021-09-09] MEDS: metOLazone 2.5 MG TAB PO SCH (06:17)
[2021-09-09] MEDS: LEVOTHYROXINE 112 MCG TAB PO SCH (06:17)
[2021-09-09 07:44] LABS: Hematocrit 28.7 % (30.3-42.9); Hemoglobin 9.4 gm/dl (10.1-14.3); Mean Corpuscular HGB Conc 33 % (30-34); Mean Corpuscular Volume 112 fl (79-97); Platelet Count 156 K/mm3 (140-440); Red Blood Count 2.57 M/mm3 (3.65-5.03); Red Cell Distribution Width 15.8 % (13.2-15.2)
[2021-09-09] MEDS: FERROUS SULFATE 325 MG TAB PO SCH ×2 (10:02→21:49)
[2021-09-09] MEDS: CYANOCOBALAMIN (VIT B-12) 1000 MCG TAB PO SCH (10:02)
[2021-09-09] MEDS: PANTOPRAZOLE 40 MG TAB PO SCH ×2 (10:02→21:51)
[2021-09-09] MEDS: ASPIRIN EC 81 MG TAB PO SCH (10:02)
[2021-09-09] MEDS: OMEGA-3 FATTY ACIDS/FISH OIL 1 GRAM CAP PO SCH (10:02)
[2021-09-09] MEDS: BUMETANIDE 1 MG TAB PO SCH (10:02)
[2021-09-09] MEDS: APIXABAN 2.5 MG TAB PO SCH ×2 (10:02→21:50)
[2021-09-09] MEDS: POTASSIUM CHLORIDE ER 20 MEQ TAB PO SCH (10:02)
[2021-09-09] MEDS: oxyCODONE /ACETAMINOPHEN 5-325MG TAB PO PRN ×2 (10:09→21:49)
--- NOTE | 2021-09-09 10:34 | Progress Note ---
Assessment and Plan - Patient Problems (1) Acute kidney injury superimposed on CKD Current Visit: Yes Status: Acute Plan to address problem: Acute kidney injury is probably prerenal azotemia secondary to volume depletion/sepsis. Kidney function is stable better than her baseline. I suspect this is probably related to decreased muscle mass (patient had a hip fracture and was bedbound and got physical therapy for 6 to 8 weeks before she improved and went home). Follow-up electrolytes and renal function. Okay to discharge from renal standpoint (2) UTI (urinary tract infection) Current Visit: Yes Status: Acute Plan to address problem: Continue antibiotics (3) Acute encephalopathy Current Visit: Yes Status: Acute Plan to address problem: Toxic/metabolic encephalopathy. Improved (4) Chronic HFrEF (heart failure with reduced ejection fraction) Current Visit: Yes Status: Chronic Plan to address problem: Compensated. Continue treatment. Continue to monitor for signs of volume overload. (5) Hypotension Current Visit: Yes Status: Acute Plan to address problem: Intravenous fluids have been stopped.. Follow-up blood pressure Subjective Date of service: 09/09/21 Principal diagnosis: sepsis, severe debility Interval history: Patient seen lying in bed. Her neighbor and his at bedside. She has no complaints. No voiding difficulties. Feels better. Family at the bedside Objective - Exam Narrative Exam: Elderly female lying in bed in no acute distress HEENT: NCAT, pink oral mucous membrane Neck: Supple, no venous distention CVS: S1S2 RRR with no murmur, rub or gallop Chest: Clear to auscultation Abdomen: Protuberant, soft, nontender, no organomegaly, bowel sounds are present Extremities: No edema Genitourinary deferred Neuro: Awake, alert, no focal deficits She is more awake and talkative today. - Vital Signs Vital signs: Vital Signs - 12hr 09/09/21 09/09/21 00:00 03:51 Temperature 98.2 F Pulse Rate 82 Respiratory 16 Rate Blood Pressure 114/51 O2 Sat by Pulse 95 95 Oximetry - Lab 09/09/21 07:01 09/08/21 04:45 Most recent lab results Calcium 8.8 mg/dL (8.4-10.2) 09/08/21 04:45 Phosphorus 4.20 mg/dL (2.5-4.5) 09/02/21 16:08 Magnesium 1.60 mg/dL (1.7-2.3) L 09/02/21 16:08 Medications & Allergies - Medications Allergies/Adverse Reactions: Allergies No Known Allergies Allergy (Unverified 06/17/17 14:54) Home Medications: Home Medications Medication Instructions Recorded Confirmed Last Taken Type Cholecalciferol (Vitamin D3) 2,000 unit PO DAILY #60 capsule 04/22/18 09/04/21 09/03/21 Rx [Vitamin D3] Levothyroxine Sodium [Synthroid] 112 mcg PO QDAY #30 tablet 04/22/18 09/04/21 09/03/21 Rx [place]-3/Dha/Epa/Fish Oil [Fish Oil 1 each PO DAILY #30 capsule 04/22/18 09/04/21 09/03/21 Rx 1,000 mg Softgel] Saccharomyces Boulardii [Florastor] 250 mg PO DAILY #30 capsule 08/26/18 09/04/21 09/03/21 Rx HYDROcodone/APAP 10-325 [[place] 1 - 2 each PO TID PRN #14 tablet 05/20/19 09/04/21 09/03/21 Rx 10-325 mg TAB] HYDROcodone/APAP 5-325 [[place] 1 each PO Q6HR PRN #14 tablet 07/13/19 09/04/21 09/03/21 Rx 5-325 mg TAB] Ondansetron [Zofran ODT TAB] 4 mg PO Q8HR PRN #14 tab.rapdis 07/13/19 09/04/21 09/03/21 Rx Aspirin EC [Halfprin EC] 81 mg PO QDAY #30 tablet 11/18/19 09/04/21 09/03/21 Rx Bumetanide [Bumex 1 mg tab] 1 mg PO BID #60 tab 11/18/19 09/04/21 09/04/21 00:49 Rx Cholecalciferol Vit D3 [Vitamin D3 2,000 unit PO DAILY #30 tablet 11/18/19 09/04/21 09/03/21 Rx 1,000 UNIT TAB] Cyanocobalamin [Vitamin B-12] 1,000 mcg PO DAILY #30 tablet 11/18/19 09/04/21 09/03/21 Rx Metoprolol [Lopressor TAB] 50 mg PO BID #60 tablet 11/18/19 09/04/2109/03/21 Rx [place]-3 Fatty Acids/Fish Oil [Fish 1,000 mg PO QDAY #30 capsule 11/18/19 09/04/21 09/03/21 Rx Oil] metOLazone [Zaroxolyn] 2.5 mg PO DAILY@0600 #30 tablet 11/18/19 09/04/21 09/03/21 Rx Sulfamethoxazole/Trimethoprim 1 each PO BID #10 tablet 12/04/19 09/04/21 09/03/21 Rx [Bactrim DS TAB] Apixaban [Eliquis] 2.5 mg PO BID 09/04/21 09/04/21 09/01/21 History Ferrous Sulfate [Ferrous Sulfate 324 mg PO BID 09/04/21 09/04/21 09/01/21 History 324 MG] Pantoprazole [Protonix] 40 mg PO BID 09/04/21 09/04/21 09/01/21 History Potassium Chloride [K-Dur] 30 meq PO BID 09/04/21 09/04/21 09/01/21 History predniSONE [Deltasone] 5 mg PO QDAY 09/04/21 09/04/21 Unknown History Active Medications: Generic Name Dose Route Start Last Admin Trade Name Freq PRN Reason Stop Dose Admin Acetaminophen 650 mg 09/02/21 18:51 09/06/21 05:15 Acetaminophen 325 Mg Tab PO 650 mg Q6H PRN Administration Pain, Mild (1-3) Albuterol 2.5 mg 09/02/21 18:51 Albuterol 2.5 Mg/3 Ml Nebu IH Q4HRT PRN Shortness Of Breath Apixaban 2.5 mg 09/05/21 22:00 09/09/21 10:02 Apixaban 2.5 Mg Tab PO 2.5 mg Q12HR ALEKS Administration Protocol Aspirin 81 mg 09/05/21 10:00 09/09/21 10:02 Aspirin Ec 81 Mg Tab PO 81 mg QDAY ALEKS Administration Bumetanide 1 mg 09/09/21 10:00 09/09/21 10:02 Bumetanide 1 Mg Tab PO 1 mg QDAY ALEKS Administration Cyanocobalamin 1,000 mcg 09/05/21 10:00 09/09/21 10:02 Cyanocobalamin (Vit B-12) 1000 Mcg Tab PO 1,000 mcg DAILY ALEKS Administration Ferrous Sulfate 325 mg 09/04/21 22:00 09/09/21 10:02 Ferrous Sulfate 325 Mg Tab PO 325 mg BID ALEKS Administration Fish Oil 1,000 mg 09/05/21 10:00 09/09/21 10:02 [place]-3 Fatty Acids/Fish Oil 1 Gram Cap PO 1,000 mg QDAY ALEKS Administration Hydromorphone HCl 0.25 mg 09/02/21 18:51 Hydromorphone 1 Mg/1 Ml Inj IV Q4H PRN Pain, Moderate (4-6) Hydromorphone HCl 0.5 mg 09/02/21 18:51 09/07/21 05:31 Hydromorphone 1 Mg/1 Ml Inj IV 0.5 mg Q23H PRN Administration Pain , Severe (7-10) Levothyroxine Sodium 112 mcg 09/05/21 06:00 09/09/21 06:17 Levothyroxine 112 Mcg Tab PO 112 mcg 0600 ALEKS Administration Metolazone 2.5 mg 09/05/21 06:00 09/09/21 06:17 Metolazone 2.5 Mg Tab PO 2.5 mg DAILY@0600 ALEKS Administration Metoprolol Tartrate 50 mg 09/04/21 22:00 09/09/21 10:03 Metoprolol Tartrate 50 Mg Tab PO Not Given BID [facility] Ondansetron HCl 4 mg 09/02/21 18:51 Ondansetron 4 Mg/2 Ml Inj IV Q8H PRN Nausea And Vomiting Oxycodone/Acetaminophen 1 tab 09/02/21 18:51 09/09/21 10:09 Oxycodone /Acetaminophen 5-325mg Tab PO 1 tab Q16H PRN Administration Pain, Moderate (4-6) Oxycodone/Acetaminophen 1 tab 09/07/21 16:07 09/08/21 18:20 Oxycodone /Acetaminophen 5-325mg Tab PO 1 tab Q6H PRN Administration Pain, Moderate (4-6) Pantoprazole Sodium 40 mg 09/04/21 22:00 09/09/21 10:02 Pantoprazole 40 Mg Tab PO 40 mg BID ALEKS Administration Potassium Chloride 20 meq 09/09/21 10:00 09/09/21 10:02 Potassium Chloride Er 20 Meq Tab PO 20 meq QDAY ALEKS Administration Sodium Chloride 10 ml 09/02/21 22:00 09/09/21 10:01 Sodium Chloride 0.9% 10 Ml Flush Syringe IV 10 ml BID ALEKS Administration Sodium Chloride 10 ml 09/02/21 18:51 Sodium Chloride 0.9% 10 Ml Flush Syringe IV PRN PRN LINE FLUSH
--- NOTE | 2021-09-09 12:03 | Progress Note ---
Assessment and Plan 86-year-old female with chronic atrial fibrillation chronic renal sufficiency coronary arterial disease had a complicated urinary tract infection causing acute on chronic renal insufficiency Sepsis Complicated UTI NSTEMI type 2-likely result of sepsis Permanent Afib(on eliquis as OP) JONAS on CKD CAD HFrEF Echo 07/2021 - EF 40-45%, moderate , mild-moderate MR, moderate TR, RVSP 44.72mmHg, mild [place]. PET MPI 12/2016 - large infarction in apical region, no additional areas of ischemia noted. Plan: Closely monitor volume status in the setting of IV fluids given hx of HF. Continue of HF regimen: Bumex 1mg QD and Lopressor 50mg BID. No ACEI/ARB due to renal fxn. Change metolazone to Q48hr Continue Eliquis 2.5mg BID for AF / CVA prophylaxis. Troponins noted to be elevated in setting of sepsis and kidney disease suspect NSTEMI type 2. Furthermore, patient denies cardiac complaints. Recommend conservative management Patient cardiac status is stable Patient has a follow-up appointment with Dr. Puri, [facility] critical care clinical nurse specialist, on 10/14/2021 at 11:15 AM in our [place] location. Phone [phone] Pt seen in conjunction with Dr. Benitez, who agrees with the assessment and plan of care. - Patient Problems (1) NSTEMI (non-ST elevated myocardial infarction) Current Visit: Yes Status: Acute (2) Acute kidney injury superimposed on CKD Current Visit: Yes Status: Acute (3) Sepsis Current Visit: Yes Status: Acute (4) UTI (urinary tract infection) Current Visit: Yes Status: Acute (5) Anemia Current Visit: Yes Status: Chronic (6) Chronic HFrEF (heart failure with reduced ejection fraction) Current Visit: Yes Status: Chronic (7) Chronic atrial fibrillation Current Visit: Yes Status: Chronic (8) HLD (hyperlipidemia) Current Visit: Yes Status: Chronic Qualifiers: Hyperlipidemia type: mixed hyperlipidemia Qualified Code(s): E78.2 - Mixed hyperlipidemia (9) Hypertension Current Visit: Yes Status: Chronic Qualifiers: Hypertension type: primary hypertension Qualified Code(s): I10 - Essential (primary) hypertension (10) Hypothyroidism Current Visit: Yes Status: Chronic Qualifiers: Hypothyroidism type: acquired Qualified Code(s): E03.9 - Hypothyroidism, unspecified (11) Ischemic cardiomyopathy Current Visit: Yes Status: Chronic (12) S/P PTCA (percutaneous transluminal coronary angioplasty) Current Visit: Yes Status: Chronic Subjective Date of service: 09/09/21 Principal diagnosis: sepsis, severe debility Interval history: Patient resting in bed in no acute distress, denies any cardaic complaints, and reports feeling better afib 70s-80s with no events Objective Vital Signs Temp Pulse Resp BP Pulse Ox 09/09/21 11:48 99.5 F 86 18 100/44 95 09/09/21 03:51 98.2 F 82 16 114/51 95 09/09/21 00:00 95 09/08/21 22:06 97.7 F 92 H 16 95/49 95 - Physical Examination General: No Apparent Distress HEENT: Positive: EOMI, Normocephaly Neck: Positive: neck supple, trachea midline Cardiac: Positive: irregularly irregular Lungs: Positive: Decreased Breath Sounds Neuro: Positive: Grossly Intact Abdomen: Positive: Soft. Negative: Tender Skin: Negative: Rash Musculoskeletal: Pain in Joint (BLE) Extremities: Present: lower extr. pulses, edema (trace), warm - Labs and Meds CBC 09/09/21 Range/Units 07:01 WBC 4.3 L (4.5-11.0) K/mm3 RBC 2.57 L (3.65-5.03) M/mm3 Hgb 9.4 L (10.1-14.3) gm/dl Hct 28.7 L (30.3-42.9) % Plt Count 156 (140-440) K/mm3 - Imaging and Cardiology EKG: report reviewed, image reviewed Echo: report reviewed - Telemetry EKG Rhythm: Atrial Fibrillation - EKG Supraventricular dysrhythmia: atrial fibrillation - Allied health notes Allied health notes reviewed: nursing
--- NOTE | 2021-09-10 06:18 | Progress Note ---
Assessment and Plan - Patient Problems (1) Sepsis Current Visit: Yes Status: Acute Plan to address problem: Nearly resolved (2) UTI (urinary tract infection) Current Visit: Yes Status: Acute Plan to address problem: Nearly resolved (3) Acidosis Current Visit: Yes Status: Acute Plan to address problem: Resolved. (4) Acute kidney injury (JONAS) with acute tubular necrosis (ATN) Current Visit: Yes Status: Acute Plan to address problem: Creatinine is improved JONAS nearly resolved (5) Toxic metabolic encephalopathy Current Visit: Yes Status: Acute Plan to address problem: Mental status improved (6) Atrial fibrillation Current Visit: Yes Status: Acute Qualifiers: Atrial fibrillation type: longstanding persistent Qualified Code(s): I48.11 - Longstanding persistent atrial fibrillation Plan to address problem: Rate currently controlled, continue therapeutic anticoagulation. Cardiology team consulted (7) Vascular dementia Current Visit: Yes Status: Acute Qualifiers: Dementia behavioral disturbance: without behavioral disturbance Qualified Code(s): F01.50 - Vascular dementia without behavioral disturbance Plan to address problem: Verbal prompting, verbal redirection, benzodiazepine therapy as clinically indicated. (8) Cerebral atherosclerosis Current Visit: Yes Status: Acute Plan to address problem: Verbal prompting, verbal redirection, supportive care, risk factor reduction. (9) DVT prophylaxis Current Visit: Yes Status: Acute Plan to address problem: SCDs bilateral lower extremities while in bed, continue therapeutic anticoagulation (10) Severe debility Needs physical therapy and probably placement Discussed with case management (11)Advance care planning Son wants subacute rehab Son signed DO NOT INTUBATE orders For placement tomorrow at replace Covid test negative Subjective Date of service: 09/09/21 Principal diagnosis: sepsis, severe debility Interval history: 86 YO Female with HTN, LA, CAD S/P stent placement, CHF, PE, OA, Atrial fibrillation on therapeutic anticoagulation, Vascular Dementia, Cerebral Atherosclerosis presents to ED for evaluation. The patient is confused and leth argic with diminished cognition at the time my evaluation is unable to provide history. Patient history taken from EMS staff, ED staff, told patient daughter who was at bedside during exam and interview. As per daughter the patient has experienced increased confusion, diminished oral intake and generalized weakness. EMS was notified and upon arrival the patient was found to be in distress and subsequent transported to [facility] for further care and evaluation of the aforementioned symptoms. Patient seen and evaluated in the emergency department. All lab and imaging studies reviewed. Patient found to have urinary tract infection complicated by sepsis, acute kidney injury, and toxic metabolic encephalopathy. Patient mated to medical floor and initiated on sepsis protocol. No reports of fever, chills, chest pain, palpitation, productive cough, skin rash, recent contact, or known exposure to COVID-19. Prior admission on 11/15/2019 reviewed. All medication listed at time of admission has been reconciled. Advanced care planning conducted in ED. 09/06/2021 Patient more comfortable lying in bed Discussed discharge planning with her Patient says that she is very weak and not willing to go home Physical therapy initiated 09/07/2021 Patient is lethargic Son is at bedside Discussed with son about subacute rehab Son states that he cannot take care of the patient at home Son signed DO NOT INTUBATE orders 09/08/2021 Patient is more alert today and responding to questions Patient refused physical therapy Patient agreed for physical therapy for tomorrow Less shortness of breath Patient needs subacute rehab/residential facility Discussed with son at length Patient is DO NOT INTUBATE Informed case management about placement 09/09/21 Patient more alert and oriented Attempted physical therapy but failed Covid test negative Placement at [facility] tomorrow Shortness of breath improved Objective - Constitutional Vitals: Vital Signs - 12hr 09/09/21 09/09/21 09/09/21 21:48 21:49 21:52 Temperature 98.8 F Pulse Rate 86 85 Respiratory 16 20 Rate Blood Pressure 107/45 O2 Sat by Pulse 97 Oximetry 09/09/21 09/09/21 22:00 22:49 Temperature Pulse Rate Respiratory 20 Rate Blood Pressure O2 Sat by Pulse 95 Oximetry General appearance: Present: no acute distress, well-nourished - EENT Eyes: PERRL, EOM intact ENT: hearing intact, clear oral mucosa Ears: bilateral: normal - Neck Neck: supple, normal ROM - Respiratory Respiratory effort: normal Respiratory: bilateral: CTA - Breasts Breasts: normal - Cardiovascular Heart rate: 78 Rhythm: regular Heart Sounds: Present: S1 & S2. Absent: gallop, rub Extremities: pulses intact, No edema, normal color, Full ROM - Gastrointestinal General gastrointestinal: Present: soft, non-tender, non-distended, normal bowel sounds - Genitourinary Female genitourinary: normal - Integumentary Integumentary: clear, warm, dry - Musculoskeletal Musculoskeletal: 1, strength equal bilaterally - Neurologic Neurologic: moves all extremities - Psychiatric Psychiatric: memory intact, appropriate mood/affect, intact judgment & insight - Labs CBC & Chem 7: 09/09/21 07:01 09/08/21 04:45 Labs: Abnormal lab results 09/09/21 Range/Units 07:01 WBC 4.3 L (4.5-11.0) K/mm3 RBC 2.57 L (3.65-5.03) M/mm3 Hgb 9.4 L (10.1-14.3) gm/dl Hct 28.7 L (30.3-42.9) % MCV 112 H (79-97) fl MCH 37 H (28-32) pg RDW 15.8 H (13.2-15.2) % HEART Score - HEART Score Troponin: Troponin T 0.705 ng/mL (0.00-0.029) H* 09/06/21 08:05
[2021-09-10] MEDS: LEVOTHYROXINE 112 MCG TAB PO SCH (06:20)
[2021-09-10 09:06] LABS: Calcium 8.7 mg/dL (8.4-10.2)
[2021-09-10] MEDS: APIXABAN 2.5 MG TAB PO SCH (09:11)
[2021-09-10] MEDS: CYANOCOBALAMIN (VIT B-12) 1000 MCG TAB PO SCH (09:11)
[2021-09-10] MEDS: FERROUS SULFATE 325 MG TAB PO SCH (09:11)
[2021-09-10] MEDS: ASPIRIN EC 81 MG TAB PO SCH (09:12)
[2021-09-10] MEDS: OMEGA-3 FATTY ACIDS/FISH OIL 1 GRAM CAP PO SCH (09:12)
[2021-09-10] MEDS: POTASSIUM CHLORIDE ER 20 MEQ TAB PO SCH (09:12)
[2021-09-10] MEDS: PANTOPRAZOLE 40 MG TAB PO SCH (09:12)
[2021-09-10] MEDS: oxyCODONE /ACETAMINOPHEN 5-325MG TAB PO PRN (09:18)
[2021-09-10] MEDS: BUMETANIDE 1 MG TAB PO SCH (09:19)
--- NOTE | 2021-09-10 10:45 | Progress Note ---
Assessment and Plan - Patient Problems (1) Acute kidney injury superimposed on CKD Current Visit: Yes Status: Acute Plan to address problem: Acute kidney injury is probably prerenal azotemia secondary to volume depletion/sepsis. Kidney function is stable better than her baseline. I suspect this is probably related to decreased muscle mass (patient had a hip fracture and was bedbound and got physical therapy for 6 to 8 weeks before she improved and went home). Follow-up electrolytes and renal function. (2) UTI (urinary tract infection) Current Visit: Yes Status: Acute Plan to address problem: Continue antibiotics (3) Acute encephalopathy Current Visit: Yes Status: Acute Plan to address problem: Toxic/metabolic encephalopathy. Improved (4) Joint pain Current Visit: Yes Status: Acute Plan to address problem: Joint pains possibly secondary to gout. Check uric acid level. Restart allopurinol and colchicine. (5) Chronic HFrEF (heart failure with reduced ejection fraction) Current Visit: Yes Status: Chronic Plan to address problem: Compensated. Continue treatment. Continue to monitor for signs of volume overload. (6) Hypotension Current Visit: Yes Status: Acute Plan to address problem: Intravenous fluids have been stopped.. Follow-up blood pressure Subjective Date of service: 09/10/21 Principal diagnosis: sepsis, severe debility Interval history: Patient seen lying in bed. She complains of pain in her toes and her elbow which she attributes to gout. She takes allopurinol at home started by her block captain Dr. Harman. She has not been on it. No voiding difficulties. Feels better. No Family at the bedside Objective - Exam Narrative Exam: Elderly female lying in bed in no acute distress HEENT: NCAT, pink oral mucous membrane Neck: Supple, no venous distention CVS: S1S2 RRR with no murmur, rub or gallop Chest: Clear to auscultation Abdomen: Protuberant, soft, nontender, no organomegaly, bowel sounds are present Extremities: No edema Genitourinary deferred Neuro: Awake, alert, no focal deficits She is more awake and talkative today. - Vital Signs Vital signs: Vital Signs - 12hr 09/09/21 22:49 Respiratory 20 Rate - Lab 09/09/21 07:01 09/10/21 07:32 Most recent lab results Calcium 8.7 mg/dL (8.4-10.2) 09/10/21 07:32 Phosphorus 4.20 mg/dL (2.5-4.5) 09/02/21 16:08 Magnesium 1.60 mg/dL (1.7-2.3) L 09/02/21 16:08 Medications & Allergies - Medications Allergies/Adverse Reactions: Allergies No Known Allergies Allergy (Unverified 06/17/17 14:54) Home Medications: Home Medications Medication Instructions Recorded Confirmed Last Taken Type Cholecalciferol (Vitamin D3) 2,000 unit PO DAILY #60 capsule 04/22/18 09/04/21 09/03/21 Rx [Vitamin D3] Levothyroxine Sodium [Synthroid] 112 mcg PO QDAY #30 tablet 04/22/18 09/04/21 09/03/21 Rx [place]-3/Dha/Epa/Fish Oil [Fish Oil 1 each PO DAILY #30 capsule 04/22/18 09/04/21 09/03/21 Rx 1,000 mg Softgel] Saccharomyces Boulardii [Florastor] 250 mg PO DAILY #30 capsule 08/26/18 09/04/21 09/03/21 Rx HYDROcodone/APAP 10-325 [Mcdonald 1 - 2 each PO TID PRN #14 tablet 05/20/19 09/04/21 09/03/21 Rx 10-325 mg TAB] HYDROcodone/APAP 5-325 [Mcdonald 1 each PO Q6HR PRN #14 tablet 07/13/19 09/04/21 09/03/21 Rx 5-325 mg TAB] Ondansetron [Zofran ODT TAB] 4 mg PO Q8HR PRN #14 tab.rapdis 07/13/19 09/04/21 09/03/21 Rx Aspirin EC [Halfprin EC] 81 mg PO QDAY #30 tablet 11/18/19 09/04/21 09/03/21 Rx Bumetanide [Bumex 1 mg tab] 1 mg PO BID #60 tab 11/18/19 09/04/21 09/04/21 00:49 Rx Cholecalciferol Vit D3 [Vitamin D3 2,000 unit PO DAILY #30 tablet 11/18/1908/2609/03/21 Rx 1,000 UNIT TAB] Cyanocobalamin [Vitamin B-12] 1,000 mcg PO DAILY #30 tablet 01/09/04/21 09/03/21 Rx Metoprolol [Lopressor TAB] 50 mg PO BID #60 tablet 11/18/19 09/04/21 09/03/21 Rx [place]-3 Fatty Acids/Fish Oil [Fish 1,000 mg PO QDAY #30 capsule 11/18/19 09/04/21 09/03/21 Rx Oil] metOLazone [Zaroxolyn] 2.5 mg PO DAILY@0600 #30 tablet 11/18/19 09/04/21 1107/16 Rx Sulfamethoxazole/Trimethoprim 1 each PO BID #10 tablet 12/04/19 09/04/21 09/03/21 Rx [Bactrim DS TAB] Apixaban [Eliquis] 2.5 mg PO BID 09/04/21 09/04/21 09/01/21 History Ferrous Sulfate [Ferrous Sulfate 324 mg PO BID 09/04/21 09/04/21 09/01/21 History 324 MG] Pantoprazole [Protonix] 40 mg PO BID 09/04/21 09/04/21 09/01/21 History Potassium Chloride [K-Dur] 30 meq PO BID 09/04/21 09/04/21 09/01/21 History predniSONE [Deltasone] 5 mg PO QDAY 09/04/21 09/04/21 Unknown History Active Medications: Generic Name Dose Route Start Last Admin Trade Name Freq PRN Reason Stop Dose Admin Acetaminophen 650 mg 09/02/21 18:51 09/06/21 05:15 Acetaminophen 325 Mg Tab PO 650 mg Q6H PRN Administration Pain, Mild (1-3) Albuterol 2.5 mg 09/02/21 18:51 Albuterol 2.5 Mg/3 Ml Nebu IH Q4HRT PRN Shortness Of Breath Allopurinol 100 mg 09/10/21 11:00 Allopurinol 100 Mg Tab PO QDAY ALEKS Apixaban 2.5 mg 09/05/21 22:00 09/10/21 09:11 Apixaban 2.5 Mg Tab PO 2.5 mg Q12HR ALEKS Administration Protocol Aspirin 81 mg 09/05/21 10:00 09/10/21 09:12 Aspirin Ec 81 Mg Tab PO 81 mg QDAY ALEKS Administration Bumetanide 1 mg 09/09/21 10:00 09/10/21 09:19 Bumetanide 1 Mg Tab PO 1 mg QDAY [facility] Administration Colchicine 0.6 mg 09/10/21 11:00 Colchicine 0.6 Mg Tab PO QDAY [facility] Cyanocobalamin 1,000 mcg 09/05/21 10:00 09/10/21 09:11 Cyanocobalamin (Vit B-12) 1000 Mcg Tab PO 1,000 mcg DAILY ALEKS Administration Ferrous Sulfate 325 mg 09/04/21 22:00 09/10/21 09:11 Ferrous Sulfate 325 Mg Tab PO 325 mg BID ALEKS Administration Fish Oil 1,000 mg 09/05/21 10:00 09/10/21 09:12 [place]-3 Fatty Acids/Fish Oil 1 Gram Cap PO 1,000 mg QDAY [facility] Administration Hydromorphone HCl 0.25 mg 09/02/21 18:51 Hydromorphone 1 Mg/1 Ml Inj IV Q4H PRN Pain, Moderate (4-6) Hydromorphone HCl 0.5 mg 09/02/21 18:51 09/07/21 05:31 Hydromorphone 1 Mg/1 Ml Inj IV 0.5 mg Q23H PRN Administration Pain , Severe (7-10) Levothyroxine Sodium 112 mcg 09/05/21 06:00 09/10/21 06:20 Levothyroxine 112 Mcg Tab PO 112 mcg 0600 [facility] Administration Metolazone 2.5 mg 09/11/21 10:00 Metolazone 2.5 Mg Tab PO Q48HR [facility] Metoprolol Tartrate 50 mg 09/04/21 22:00 09/09/21 21:52 Metoprolol Tartrate 50 Mg Tab PO 50 mg BID [facility] Administration Ondansetron HCl 4 mg 09/02/21 18:51 Ondansetron 4 Mg/2 Ml Inj IV Q8H PRN Nausea And Vomiting Oxycodone/Acetaminophen 1 tab 09/02/21 18:51 09/10/21 09:18 Oxycodone /Acetaminophen 5-325mg Tab PO 1 tab Q16H PRN Administration Pain, Moderate (4-6) Oxycodone/Acetaminophen 1 tab 09/07/21 16:07 09/08/21 18:20 Oxycodone /Acetaminophen 5-325mg Tab PO 1 tab Q6H PRN Administration Pain, Moderate (4-6) Pantoprazole Sodium 40 mg 09/04/21 22:00 09/10/21 09:12 Pantoprazole 40 Mg Tab PO 40 mg BID ALEKS Administration Potassium Chloride 20 meq 09/09/21 10:00 09/10/21 09:12 Potassium Chloride Er 20 Meq Tab PO 20 meq QDAY ALEKS Administration Sodium Chloride 10 ml 09/02/21 22:00 09/10/21 09:12 Sodium Chloride 0.9% 10 Ml Flush Syringe IV 10 ml BID ALEKS Administration Sodium Chloride 10 ml 09/02/21 18:51 Sodium Chloride 0.9% 10 Ml Flush Syringe IV PRN PRN LINE FLUSH
[2021-09-10] MEDS ORDERED: allopurinoL 100 MG TAB PO SCH (11:00)
[2021-09-10] MEDS ORDERED: COLCHICINE 0.6 MG TAB PO SCH (11:00)
--- NOTE | 2021-09-10 11:35 | Discharge Summary ---
Providers - Providers Date of Admission: 09/02/21 18:51 Date of discharge: 09/10/21 Attending physician: MARLON MYERS 09/03/21 10:34 Consult to Physician [CONS] Routine Comment: Consulting Provider: JONNY NARAYANAN Physician Instructions: Reason For Exam: radha 09/04/21 14:43 Physical Therapy Evaluation and Treat [CONS] Stat Comment: Reason For Exam: eval and treat 09/05/21 12:31 Consult to Cardiology [CONS] Routine Consulting Provider: BARTOLOME BELLE Reason For Exam: chf 09/07/21 11:01 Physical Therapy Evaluation and Treat [CONS] Urgent Comment: Reason For Exam: ambulation post infection 09/08/21 10:15 Consult to Case Management [CONS] Routine Services Needed at Discharge: Home Health Services Other Notified:: message per case manger Additional Physician Instructions: possible rehab if ok with family 09/08/21 14:43 Occupational Therapy Evaluate and Treat [CONS] Routine Comment: Reason For Exam: Debility Primary care physician: TREY ORR MD Hospitalization Condition: Fair Disposition: 03 [facility] F[facility] Core Measure Documentation - Palliative Care Palliative Care/ Comfort Measures: Not Applicable - Core Measures Any of the following diagnoses?: none Exam - Constitutional Vitals: Temp Pulse Resp BP Pulse Ox 98.8 F 85 20 107/45 95 09/09/21 21:48 09/09/21 21:52 09/09/21 22:49 09/09/21 21:48 09/09/21 22:00 Plan Follow up with: PRIMARY CAREMD [Primary Care Provider] - 3-5 Days
--- NOTE | 2021-09-10 11:45 | Progress Note ---
Assessment and Plan 86-year-old female with chronic atrial fibrillation chronic renal sufficiency coronary arterial disease had a complicated urinary tract infection causing acute on chronic renal insufficiency Sepsis Complicated UTI NSTEMI type 2-likely result of sepsis Permanent Afib(on eliquis as OP) JONAS on CKD CAD HFrEF Echo 07/2021 - EF 40-45%, moderate , mild-moderate MR, moderate TR, RVSP 44.72mmHg, mild [place]. PET MPI 12/2016 - large infarction in apical region, no additional areas of ischemia noted. Plan: Closely monitor volume status in the setting of IV fluids given hx of HF. Continue of HF regimen: Bumex 1mg QD and Lopressor 50mg BID,metolazone to Q48hr. No ACEI/ARB due to renal fxn Continue Eliquis 2.5mg BID for AF / CVA prophylaxis. Troponins noted to be elevated in setting of sepsis and kidney disease suspect NSTEMI type 2. Furthermore, patient denies cardiac complaints. Recommend conservative management Patient cardiac status is stable for discharge. Will sign off Patient has a follow-up appointment with Dr. Puri, [facility] delivery specialist, on 10/14/2021 at 11:15 AM in our [place] location. Phone [phone] Pt seen in conjunction with Dr. Benitez, who agrees with the assessment and plan of care. - Patient Problems (1) NSTEMI (non-ST elevated myocardial infarction) Current Visit: Yes Status: Acute (2) Acute kidney injury superimposed on CKD Current Visit: Yes Status: Acute (3) Sepsis Current Visit: Yes Status: Acute (4) UTI (urinary tract infection) Current Visit: Yes Status: Acute (5) Anemia Current Visit: Yes Status: Chronic (6) Chronic HFrEF (heart failure with reduced ejection fraction) Current Visit: Yes Status: Chronic (7) Chronic atrial fibrillation Current Visit: Yes Status: Chronic (8) HLD (hyperlipidemia) Current Visit: Yes Status: Chronic Qualifiers: Hyperlipidemia type: mixed hyperlipidemia Qualified Code(s): E78.2 - Mixed hyperlipidemia (9) Hypertension Current Visit: Yes Status: Chronic Qualifiers: Hypertension type: primary hypertension Qualified Code(s): I10 - Essential (primary) hypertension (10) Hypothyroidism Current Visit: Yes Status: Chronic Qualifiers: Hypothyroidism type: acquired Qualified Code(s): E03.9 - Hypothyroidism, unspecified (11) Ischemic cardiomyopathy Current Visit: Yes Status: Chronic (12) S/P PTCA (percutaneous transluminal coronary angioplasty) Current Visit: Yes Status: Chronic Subjective Date of service: 09/10/21 Principal diagnosis: sepsis, severe debility Interval history: Patient resting in bed in no acute distress, denies any cardaic complaints, and reports feeling much better this AM afib 70s with no events Objective Vital Signs Temp Pulse Resp BP Pulse Ox 09/09/21 22:49 20 09/09/21 22:00 95 09/09/21 21:52 85 09/09/21 21:49 20 09/09/21 21:48 98.8 F 86 16 107/45 97 09/09/21 12:41 74 95 09/09/21 12:00 95 09/09/21 11:48 99.5 F 86 18 100/44 95 - Physical Examination General: No Apparent Distress HEENT: Positive: EOMI, Normocephaly Neck: Positive: neck supple, trachea midline Cardiac: Positive: irregularly irregular Lungs: Positive: Decreased Breath Sounds Neuro: Positive: Grossly Intact Abdomen: Positive: Soft. Negative: Tender Skin: Negative: Rash Musculoskeletal: Pain in Joint (BLE) Extremities: Present: lower extr. pulses, edema (trace), warm - Labs and Meds Comprehensive Metabolic Panel 09/10/21 Range/Units 07:32 Sodium 133 L (137-145) mmol/L Potassium 3.9 (3.6-5.0) mmol/L Chloride 97.9 L (98-107) mmol/L Carbon Dioxide 26 (22-30) mmol/L BUN 24 H (7-17) mg/dL Creatinine 1.3 H (0.6-1.2) mg/dL Glucose 92 (65-100) mg/dL Calcium 8.7 (8.4-10.2) mg/dL - Imaging and Cardiology EKG: report reviewed, image reviewed Echo: report reviewed - Telemetry EKG Rhythm: Atrial Fibrillation - EKG Supraventricular dysrhythmia: atrial fibrillation - Allied health notes Allied health notes reviewed: nursing
[2021-09-10 13:27] VITALS: BP 107/52
[2021-09-10] MEDS: METOPROLOL TARTRATE 50 MG TAB PO SCH (14:17)
[2021-09-11] MEDS ORDERED: metOLazone 2.5 MG TAB PO SCH (10:00)
== END 2021-09-10 18:03 | DRG 871 ==
LOC: ED 13:38 → 3A 18:51
PROVIDERS: ADMIT Internal Medicine; ATTEND Internal Medicine
DX: A41.9 Sepsis, unspecified organism (principal); G92.8 Other toxic encephalopathy; N17.0 Acute kidney failure with tubular necrosis; I21.A1 Myocardial infarction type 2; I50.23 Acute on chronic systolic (congestive) heart failure; N39.0 Urinary tract infection, site not specified; I48.19 Other persistent atrial fibrillation; I13.0 Hypertensive heart and chronic kidney disease with heart failure and stage 1 through stage 4 chronic kidney disease, or unspecified chronic kidney disease; I25.110 Atherosclerotic heart disease of native coronary artery with unstable angina pectoris; Z79.01 Long term (current) use of anticoagulants; N18.32 Chronic kidney disease, stage 3b; Z86.711 Personal history of pulmonary embolism; I25.2 Old myocardial infarction; M19.90 Unspecified osteoarthritis, unspecified site; Z79.82 Long term (current) use of aspirin; E83.42 Hypomagnesemia; F01.50 Vascular dementia, unspecified severity, without behavioral disturbance, psychotic disturbance, mood disturbance, and anxiety; I67.2 Cerebral atherosclerosis; Z83.3 Family history of diabetes mellitus; Z82.49 Family history of ischemic heart disease and other diseases of the circulatory system; I25.5 Ischemic cardiomyopathy; E03.9 Hypothyroidism, unspecified; E78.2 Mixed hyperlipidemia; D64.9 Anemia, unspecified; R53.81 Other malaise
CPT/HCPCS: 36415; 70450; 71045; 74176; 80048; 80053; 80061; 80320; 81001; 82140; 82550; 82565; 83735; 84100; 84443; 84484; 85025; 85027; 85610; 86850; 86900; 86901; 87040; 93005; 94640; G0378; Q0162; G0480; J0696; J1170; J1940; J3475; J7030; J7040; J7050; U0003